=== PATIENT | female | born 1980 | race Caucasian/White ===

== ENCOUNTER 2017-08-16 11:52 | Emergency (ER) | payer BC, MEDICAID, SELFPAY ==
[2017-08-16 12:40] VITALS: BP 135/80; PULSE 109; RESP 20; TEMP 37; O2SAT 97; BMI 35.4
--- NOTE | 2017-08-16 14:22 | HMH.EDGENADL ---
ED Disposition Clinical Impression: Influenza Disposition: Home, Self-Care Condition on Discharge: Good Instructions: Influenza Referrals: Addy Avila MD [Primary Care Provider] - - Critical Care Critical Care Time: No Attestation: On 08/16/17, the high probability of a clinically significant, sudden or life threatening deterioration of the following system(s) required my full and direct attention, intervention and personal management. The time I documented below is in addition to time spent performing reported procedures but includes the following listed in this critical care notation. Medical Decision Making Vital Signs: 08/16/17 12:40 Temperature 98.6 F Temperature Source Oral Pulse Rate [Right Brachial] 109 H Respiratory Rate 20 Blood Pressure [Right Arm] 135/80 Blood Pressure Mean [Right Arm] 98 Blood Pressure Source [Right Arm] Automatic Cuff Blood Pressure Position [Right Arm] Supine 02 Sat by Pulse Oximetry 97 Oxygen Delivery Method Room Air - Lab Data Lab results reviewed: Yes: I reviewed the patient's lab results. positive group a strep, with 2 days history of being sick - Kenny Inquiry Pt receiving controlled substance: No General Adult HPI - General Chief complaint: Weakness Stated complaint: fever soa achey Mode of Arrival: Ambulatory Limitations: No Limitations Description of Symptoms (Recalled from ER Triage Doc. by RN): COUGH, CONGESTION, FEVER, CHILLS, BODY ACHES FOR 2 DAYS - History of Present Illness Onset (ago): day(s) (2) Location: head, face, chest Radiation: non-radiation Severity: moderate Severity scale (1-10): 5 - Related Data Home Medications Medication Instructions Recorded Confirmed Cetirizine HCl [Zyrtec] 10 mg PO DAILY 08/16/17 08/16/17 Meloxicam 15 mg PO DAILY 08/16/17 08/16/17 Norgestimate-Ethinyl Estradiol 1 each PO DAILY 08/16/17 08/16/17 [Ortho Tri-Cyclen 28 Tablet] clonazePAM [Clonazepam] 0.5 mg PO HS 08/16/17 08/16/17 Allergies Allergy/AdvReac Type Severity Reaction Status Date / Time No Known Allergies Allergy Unverified 08/03/17 14:44 [facility] History Medical History: Denies:: Cancer, Diabetes Mellitus Type 1, Diabetes Mellitus Type 2, MRSA Other Surgeries: No: Pacemaker Amputation: No Fractures: No - *Social History Educational Level: Completed High School Smoking Status: Current every day smoker Tobacco Type: smokeless tobacco Alcohol Intake: never - Psychiatric History Expresses thoughts of harming self/others: None Suicide Plan Description: No Plan ROS Obtained: Yes All systems reviewed & no additional complaints except - Constitutional Reports anorexia, Reports body ache(s), Reports chills - Respiratory Reports cough Physical Exam - General General appearance: alert - Head Head exam: atraumatic, normocephalic, normal inspection - Eye Eye exam: Present: normal appearance, PERRL, EOMI - ENT ENT exam: Present: normal exam, normal oropharynx, mucous membranes moist, TM's normal bilaterally, normal external ear exam, other (congested with boggy mucosa) - Neck Neck exam: Present: normal inspection, full ROM, trachea midline - Chest Chest inspection: Present: normal inspection, symmetric chest wall rise. Absent: tenderness - Respiratory Respiratory exam: Present: normal lung sounds bilaterally. Absent: respiratory distress - Cardiovascular Cardiovascular exam: Present: regular rate, normal rhythm. Absent: JVD - Abdominal Exam Abdominal exam: Present: soft, normal bowel sounds. Absent: distention, tenderness, guarding - Extremities Exam Extremities exam: Present: normal inspection, full ROM, normal capillary refill. Absent: calf tenderness - Back Exam Back exam: Present: normal inspection. Absent: tenderness - Neurological Exam Neurological exam: Present: alert, oriented X3 - Psychiatric Psychiatric exam: Present: normal affect, normal mood - Skin Skin exam: Present: war
--- NOTE | 2017-08-16 14:25 | ED_ITS ---
ED Disposition Clinical Impression: Influenza Disposition: Home, Self-Care Condition on Discharge: Good Instructions: Influenza Referrals: Addy Avila MD [Primary Care Provider] - - Critical Care Critical Care Time: No Attestation: On 08/16/17, the high probability of a clinically significant, sudden or life threatening deterioration of the following system(s) required my full and direct attention, intervention and personal management. The time I documented below is in addition to time spent performing reported procedures but includes the following listed in this critical care notation. Medical Decision Making Vital Signs: 08/16/17 12:40 Temperature 98.6 F Temperature Source Oral Pulse Rate [Right Brachial] 109 H Respiratory Rate 20 Blood Pressure [Right Arm] 135/80 Blood Pressure Mean [Right Arm] 98 Blood Pressure Source [Right Arm] Automatic Cuff Blood Pressure Position [Right Arm] Supine 02 Sat by Pulse Oximetry 97 Oxygen Delivery Method Room Air - Lab Data Lab results reviewed: Yes: I reviewed the patient's lab results. positive group a strep, with 2 days history of being sick - Kenny Inquiry Pt receiving controlled substance: No General Adult HPI - General Chief complaint: Weakness Stated complaint: fever soa achey Mode of Arrival: Ambulatory Limitations: No Limitations Description of Symptoms (Recalled from ER Triage Doc. by RN): COUGH, CONGESTION , FEVER, CHILLS, BODY ACHES FOR 2 DAYS - History of Present Illness Onset (ago): day(s) (2) Location: head, face, chest Radiation: non-radiation Severity: moderate Severity scale (1-10): 5 - Related Data Home Medications Medication Instructions Recorded Confirmed Cetirizine HCl [Zyrtec] 10 mg PO DAILY 08/16/17 08/16/17 Meloxicam 15 mg PO DAILY 08/16/17 08/16/17 Norgestimate-Ethinyl Estradiol 1 each PO DAILY 08/16/17 08/16/17 [Ortho Tri-Cyclen 28 Tablet] clonazePAM [Clonazepam] 0.5 mg PO HS 08/16/17 08/16/17 Allergies Allergy/AdvReac Type Severity Reaction Status Date / Time No Known Allergies Allergy Unverified 08/03/17 14:44 [facility] History Medical History: Denies:: Cancer, Diabetes Mellitus Type 1, Diabetes Mellitus Type 2, MRSA Other Surgeries: No: Pacemaker Amputation: No Fractures: No - *Social History Educational Level: Completed High School Smoking Status: Current every day smoker Tobacco Type: smokeless tobacco Alcohol Intake: never - Psychiatric History Expresses thoughts of harming self/others: None Suicide Plan Description: No Plan ROS Obtained: Yes All systems reviewed & no additional complaints except - Constitutional Reports anorexia, Reports body ache(s), Reports chills - Respiratory Reports cough Physical Exam - General General appearance: alert - Head Head exam: atraumatic, normocephalic, normal inspection - Eye Eye exam: Present: normal appearance, PERRL, EOMI - ENT ENT exam: Present: normal exam, normal oropharynx, mucous membranes moist, TM's normal bilaterally, normal external ear exam, other (congested with boggy mucosa ) - Neck Neck exam: Present: normal inspection, full ROM, trachea midline - Chest Chest inspection: Present: normal inspection, symmetric chest wall rise. Absent : tenderness
[2017-08-16 14:30] VITALS: BP 128/74; PULSE 98; RESP 20
== END 2017-08-16 14:40 | disposition home or self-care (01) ==
PROVIDERS: Emergency Provider Family Medicine; Family Provider Family Medicine; PCP Family Medicine
DX: J10.1 Influenza due to other identified influenza virus with other respiratory manifestations (principal); F17.290 Nicotine dependence, other tobacco product, uncomplicated
CPT/HCPCS: 87275; 87276; 99282

== ENCOUNTER → 2017-11-23 08:44 | Outpatient (POV) | payer BC, MEDICAID, SELFPAY ==
[2017-11-23 09:16] VITALS: BP 159/93; PULSE 82; RESP 18; TEMP 36.6; O2SAT 94; BMI 36.9
--- NOTE | 2017-11-23 10:52 | HMH.PAINSOAP ---
[facility] Pain Management SOAP Note Subjective:: Patient is a pleasant 37-year-old white female who presents today for follow-up after a injection she had back in June. Patient states she did quite well after the injection however her pain has returned and flared up. 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 She states that most of her pain is in her low back and her left leg. Patient has trouble sitting and states that this increases her pain. She rates her pain a 6 out of 10 today. Patient is on anti-inflammatories. Patient is unable to take muscle relaxers due to side effects. Patient has never tried gabapentin before. Patient and I discussed continuing with injective therapy versus going for surgical consult. At this time the patient is interested in trying to get as much relief with injective therapy prior to seeing a surgeon. ROS General: no recent weight change, no fever, no sleep disturbances Respiratory: no cough, no shortness of air, no recurring pulmonary infections Cardiovascular/Peripheral Vascular: No chest pain, No palpitations, no edema, no shortness of breath. Gastrointestinal: no incontinence, normal bowel movements reported Genitourinary: no incontinence Musculoskeletal: Back pain, left hip and leg pain Psychiatric: normal mood/ affect, Neurological: [denies weakness in extremities], [denies balance issues] Objective:: Physical Exam General: Alert and oriented x3, no acute distress, pleasant and cooperative, [on room air] Lungs: Resps E/U, Symmetrical chest expansion, Eyes: PERRL Musculoskeletal: Flexion and extension of lumbar spine somewhat guarded secondary to pain, deep tendon reflexes normal, strength in upper and lower extremities [5/5], normal gait noted, positive straight leg test on the left side at 30?. Neurological: speech clear, band shover equal, no gross sensory deficits Assessment:: Degenerative disc disease of the lumbar spine with lumbar radiculopathy, disc bulge at L4-L5 Plan:: We will schedule another L4-L5 lumbar epidural steroid injection. Patient is tried and failed anti-inflammatories, medications, physical therapy, chiropractic therapy. We will also start the patient on gabapentin 100 mg 1 p.o. 3 times daily. Patient is going to be taking this at night and slowly titrating as tolerated. I will follow this patient after her lumbar epidural steroid injection. This note was dictated using voice recognition software and may contain errors or omissions
== END ==
PROVIDERS: Family Provider Family Medicine; PCP Family Medicine; Visit Provider Clinical Nurse Specialist Family Health
DX: M54.6 Pain in thoracic spine (principal)
CPT/HCPCS: 99212

== ENCOUNTER → 2017-12-17 12:31 | Outpatient (CLI) | payer BC, MEDICAID, SELFPAY ==
--- NOTE | 2017-12-17 12:42 | XR_ITS ---
XR foot LT min 3V HISTORY: ITS.REASON: LT FOOT PAIN , INJURY ORDERING PHYSICIAN: Sugar Garcia PATIENT AGE: 37 years COMPARISON: 06/14/2017 FINDINGS: No fracture or dislocation. No lytic or blastic change. There is normal mineralization.. The joint spaces are well-preserved. No significant degenerative/arthritic changes. No erosive changes evident. IMPRESSION: Negative, no acute finding
== END ==
PROVIDERS: PCP Family Medicine; Visit Provider Nurse Practitioner Family
DX: S99.922A Unspecified injury of left foot, initial encounter (principal)
CPT/HCPCS: 73630

== ENCOUNTER → 2018-01-27 09:29 | Outpatient (CLI) | payer BC, MEDICAID, SELFPAY ==
--- NOTE | 2018-01-27 09:30 | XR_ITS ---
XR foot wt bearing LT 3V HISTORY: ITS.REASON: pain ORDERING PHYSICIAN: Birgit Womack DPM PATIENT AGE: 37 years COMPARISON: 12/17/2017 FINDINGS: No fracture or dislocation. No lytic or blastic change. There is normal mineralization.. The joint spaces are well-preserved. No significant degenerative/arthritic changes. No erosive changes evident. Normal alignment IMPRESSION: Negative, no acute finding
== END ==
PROVIDERS: Visit Provider Podiatrist
DX: M79.672 Pain in left foot (principal)
CPT/HCPCS: 73630

== ENCOUNTER → 2018-01-31 13:45 | Outpatient (POV) | payer BC, MEDICAID, SELFPAY ==
[2018-01-31 14:28] VITALS: BP 134/84; PULSE 83; RESP 18; O2SAT 98; BMI 38.4
--- NOTE | 2018-02-01 08:50 | HMH.PAINSOAP ---
[facility] Pain Management SOAP Note Subjective:: This patient is a pleasant 37-year-old white female who presents today for follow-up after her second lumbar epidural steroid injection. Patient states that her every day pain is still around a 6 out of 10 however she has had no flareups which are typically incapacitating for her. She states most of her pain is in her low back and her left leg. Patient is on anti-inflammatories. Patient is unable to take muscle relaxers due to side effects. Patient tried gabapentin however she stated she did not feel like it was beneficial. Patient would like to try one more injection to finish off her series of 3 epidural injections. I believe that this would be beneficial. ROS General: no recent weight change, no fever, no sleep disturbances Respiratory: no cough, no shortness of air, no recurring pulmonary infections Cardiovascular/Peripheral Vascular: No chest pain, No palpitations, no edema, no shortness of breath. Gastrointestinal: no incontinence, normal bowel movements reported Genitourinary: no incontinence Musculoskeletal: Back pain, left leg pain Psychiatric: normal mood/ affect Neurological: [denies weakness in extremities], [denies balance issues] Objective:: Physical Exam General: Alert and oriented x3, no acute distress, pleasant and cooperative, [on room air] Lungs: Resps E/U, Symmetrical chest expansion, Eyes: PERRL Musculoskeletal: Flexion and extension of lumbar spine somewhat guarded secondary to pain, deep tendon reflexes normal, strength in upper and lower extremities [5/5], slightly antalgic gait noted, positive straight leg raise test at 30? on the left side Neurological: speech clear, guest service representative equal, no gross sensory deficits Assessment:: Degenerative disease lumbar spine with lumbar radiculopathy, disc bulge at L4-L5 Plan:: We will plan her third L4-L5 lumbar epidural steroid injection. Patient's tried and failed anti-inflammatory medications, physical therapy, chiropractic therapy. Patient and I discussed potentially going to a neurosurgeon. Patient would like to finish off her epidural series prior to making any decisions on this. Patient is not on any anticoagulation therapy. This note was dictated using voice recognition software and may contain errors or omissions
--- NOTE | 2018-02-01 08:54 | P.CONS_ITS ---
[facility] Pain Management SOAP Note Subjective:: This patient is a pleasant 37-year-old white female who presents today for follow-up after her second lumbar epidural steroid injection. Patient states that her every day pain is still around a 6 out of 10 however she has had no flareups which are typically incapacitating for her. She states most of her pain is in her low back and her left leg. Patient is on anti-inflammatories. Patient is unable to take muscle relaxers due to side effects. Patient tried gabapentin however she stated she did not feel like it was beneficial. Patient would like to try one more injection to finish off her series of 3 epidural injections. I believe that this would be beneficial. ROS General: no recent weight change, no fever, no sleep disturbances Respiratory: no cough, no shortness of air, no recurring pulmonary infections Cardiovascular/Peripheral Vascular: No chest pain, No palpitations, no edema, no shortness of breath. Gastrointestinal: no incontinence, normal bowel movements reported Genitourinary: no incontinence Musculoskeletal: Back pain, left leg pain Psychiatric: normal mood/ affect Neurological: [denies weakness in extremities], [denies balance issues] Objective:: Physical Exam General: Alert and oriented x3, no acute distress, pleasant and cooperative, [ on room air] Lungs: Resps E/U, Symmetrical chest expansion, Eyes: PERRL Musculoskeletal: Flexion and extension of lumbar spine somewhat guarded secondary to pain, deep tendon reflexes normal, strength in upper and lower extremities [5/5], slightly antalgic gait noted, positive straight leg raise test at 30? on the left side Neurological: speech clear, security operations analyst equal, no gross sensory deficits Assessment:: Degenerative disease lumbar spine with lumbar radiculopathy, disc bulge at L4-L5 Plan:: We will plan her third L4-L5 lumbar epidural steroid injection. Patient's tried and failed anti-inflammatory medications, physical therapy, chiropractic therapy. Patient and I discussed potentially going to a neurosurgeon. Patient would like to finish off her epidural series prior to making any decisions on this. Patient is not on any anticoagulation therapy. This note was dictated using voice recognition software and may contain errors or omissions
== END ==
PROVIDERS: Family Provider Family Medicine; Visit Provider Clinical Nurse Specialist Family Health
DX: M54.16 Radiculopathy, lumbar region (principal)
CPT/HCPCS: 99212

== ENCOUNTER → 2018-07-26 10:55 | Outpatient (POV) | payer BC, MEDICAID, SELFPAY ==
[2018-07-26 11:19] VITALS: BP 143/92; PULSE 81; RESP 18; O2SAT 99; BMI 36.9
--- NOTE | 2018-07-26 11:47 | HMH.PAINSOAP ---
[facility] Pain Management SOAP Note Subjective:: Patient is a pleasant 37-year-old white female who we are treating for low back pain. Patient had an epidural injection back in February and has had relief of her symptoms however in the last week her pain has begun to return. Patient would like a repeat epidural. Rates her pain a 7 out of 10 today. ROS General: no recent weight change, no fever, no sleep disturbances Respiratory: no cough, no shortness of air, no recurring pulmonary infections Cardiovascular/Peripheral Vascular: No chest pain, No palpitations, no edema, no shortness of breath. Gastrointestinal: no incontinence, normal bowel movements reported Genitourinary: no incontinence Musculoskeletal: Back pain, leg pain Psychiatric: normal mood/ affect Neurological: [denies weakness in extremities], [denies balance issues] Objective:: Physical Exam General: Alert and oriented x3, no acute distress, pleasant and cooperative, [on room air] Lungs: Resps E/U, Symmetrical chest expansion, Eyes: PERRL Musculoskeletal: Flexion and extension of lumbar spine somewhat guarded secondary to pain, deep tendon reflexes normal, strength in upper and lower extremities [5/5], antalgic gait noted, positive straight leg raise test bilaterally at 30 degrees Neurological: speech clear, pot runner equal, no gross sensory deficits Assessment:: Degenerative disc disease of lumbar spine with lumbar radiculopathy symptoms and bulging disc at L4 Plan:: We will schedule her an L4-L5 lumbar epidural steroid injection given the efficacy of the last one. Patient is not on any anticoagulation therapy. Patient is continuing her anti-inflammatories and a home stretching program. This note was dictated using voice recognition software and may contain errors or omissions
--- NOTE | 2018-07-26 11:51 | P.CONS_ITS ---
[facility] Pain Management SOAP Note Subjective:: Patient is a pleasant 37-year-old white female who we are treating for low back pain. Patient had an epidural injection back in February and has had relief of her symptoms however in the last week her pain has begun to return. Patient would like a repeat epidural. Rates her pain a 7 out of 10 today. ROS General: no recent weight change, no fever, no sleep disturbances Respiratory: no cough, no shortness of air, no recurring pulmonary infections Cardiovascular/Peripheral Vascular: No chest pain, No palpitations, no edema, no shortness of breath. Gastrointestinal: no incontinence, normal bowel movements reported Genitourinary: no incontinence Musculoskeletal: Back pain, leg pain Psychiatric: normal mood/ affect Neurological: [denies weakness in extremities], [denies balance issues] Objective:: Physical Exam General: Alert and oriented x3, no acute distress, pleasant and cooperative, [on room air] Lungs: Resps E/U, Symmetrical chest expansion, Eyes: PERRL Musculoskeletal: Flexion and extension of lumbar spine somewhat guarded secondary to pain, deep tendon reflexes normal, strength in upper and lower extremities [5/5], antalgic gait noted, positive straight leg raise test bilaterally at 30 degrees Neurological: speech clear, bus system operator equal, no gross sensory deficits Assessment:: Degenerative disc disease of lumbar spine with lumbar radiculopathy symptoms and bulging disc at L4 Plan:: We will schedule her an L4-L5 lumbar epidural steroid injection given the efficacy of the last one. Patient is not on any anticoagulation therapy. Patient is continuing her anti-inflammatories and a home stretching program. This note was dictated using voice recognition software and may contain errors or omissions
== END ==
PROVIDERS: PCP Family Medicine; Visit Provider Clinical Nurse Specialist Family Health
DX: M51.16 Intervertebral disc disorders with radiculopathy, lumbar region (principal)
CPT/HCPCS: 99213

== ENCOUNTER → 2018-11-04 09:55 | Outpatient (CLI) | payer BC, MEDICAID, SELFPAY ==
[2018-11-07 08:24] LABS: HIV Screen 4th Generation wRfx Non Reactive (Non Reactive); Hepatitis C Antibody <0.1 s/co ratio (0.0-0.9); Rapid Plasma Reagin Ab Titer Non Reactive (NonRea<1:1)
== END ==
PROVIDERS: Visit Provider Obstetrics & Gynecology
DX: Z11.3 Encounter for screening for infections with a predominantly sexual mode of transmission (principal)
CPT/HCPCS: 36415; 86592; 86703; 87380; G0432

== ENCOUNTER → 2020-05-07 11:08 | Outpatient (CLI) | payer BC, OTHER, SELFPAY ==
--- NOTE | 2020-05-07 11:09 | CA_ITS ---
APPROVED REPORT Pit Clerk: Dunia Gomes RVT Laterality: Bilateral Study Quality: Excellent Indications: NUMBNESS OF WHOLE BODY,HERNANDEZ Risk Factors Hypertension: Smoking Doppler Spectral Velocity Analysis ECA (R) 84.90/17.00 cm/s ECA (L) 116.40/20.20 cm/s dICA (R) 80.70/37.60 cm/s dICA (L) 73.60/32.30 cm/s Martha (R) 98.10/38.30 cm/s Martha (L) 66.00/31.70 cm/s pICA (R) 82.80/28.50 cm/s pICA (L) 114.80/39.30 cm/s dCCA (R) 71.70/21.60 cm/s dCCA (L) 93.40/23.50 cm/s pCCA (R) 123.40/28.30 cm/s pCCA (L) 98.80/28.20 cm/s Vert (R) 47.70/14.40 cm/s Vert (L) 42.40/14.80 cm/s ICA/CCA 1.37 ICA/CCA 1.23 Findings Study suggests no evidence of stenosis of the bilateral cartoid arteries. Antegrade flow seen bilateral vertebral arteries. Conclusion Study suggests no evidence of stenosis of the bilateral cartoid arteries. Antegrade flow seen bilateral vertebral arteries. Electronically signed by : Nish Campos MD 05/07/2020 19:51:18
== END ==
PROVIDERS: PCP Family Medicine; Visit Provider Specialist
DX: R51 Headache (principal); I10 Essential (primary) hypertension; R20.0 Anesthesia of skin; Z68.34 Body mass index [BMI] 34.0-34.9, adult
CPT/HCPCS: 93880

== ENCOUNTER → 2020-05-08 12:56 | Outpatient (CLI) | payer BC, OTHER, SELFPAY ==
--- NOTE | 2020-05-08 13:01 | MR_ITS ---
PROCEDURE: MR HEAD/BRAIN WO CON CLINICAL INDICATION: eval for abnormality Pt. c/o rt arm and left leg numbness that is internittent for a few months. Pt states she has panic attacks. COMPARISON: No exams were available for comparison TECHNIQUE: Routine multiplanar multi echo sequences are performed without gadolinium enhancement. FINDINGS: No midline shift, mass effect, intracranial hemorrhage, or hydrocephalus. No evidence of acute infarction The cerebellopontine angles, cerebellum, and brainstem are unremarkable. There is normal dean-white matter differentiation with no abnormal white matter signal intensity evident. The pituitary, optic chiasm, corpus callosum, and craniocervical junction have an unremarkable appearance. No mastoid effusion or sinus air-fluid level. IMPRESSION: Negative MRI of the brain without contrast Dictated by: Nish Campos MD 05/10/2020 12:54 Nish Campos MD in [place] 05/10/2020 12:54
== END ==
PROVIDERS: PCP Family Medicine; Visit Provider Specialist
DX: R51 Headache (principal); R20.0 Anesthesia of skin; G57.12 Meralgia paresthetica, left lower limb; M79.641 Pain in right hand; M79.642 Pain in left hand
CPT/HCPCS: 70551

== ENCOUNTER → 2020-05-29 08:13 | Outpatient (CLI) | payer BC, OTHER, SELFPAY ==
[2020-05-29 08:34] LABS: Basophils # 0.1 K/mm3 (0-0.2); Basophils % 0.8 % (0.1-2.0); Eosinophils # 0.4 K/mm3 (0.0-0.4); Eosinophils % 4.6 % (0.1-12.0); Hematocrit 39.5 % (37.0-47.0); Hemoglobin 12.1 g/dL (12.2-16.2); Lymphocytes # 2.6 K/mm3 (0.7-4.5); Lymphocytes % 34.1 % (10-50); Mean Corpuscular HGB Conc 30.5 g/dL (31.8-35.4); Mean Corpuscular Hemoglobin 27.4 pg (27.0-31.2); Mean Corpuscular Volume 89.8 fl (81-99); Mean Platelet Volume 7.1 fl (7.4-10.4); Monocytes # 0.4 K/mm3 (0.1-1.0); Monocytes % 5.5 % (1.7-9.3); Neutrophils # 4.3 K/mm3 (1.8-7.8); Platelet Count 407 K/mm3 (142-424); Red Cell Distribution Width 14.1 % (11.5-17.5); White Blood Count 7.7 K/mm3 (4.8-10.8)
[2020-05-29 11:22] LABS: Alanine Aminotransferase 28 U/L (12-78); Albumin Level 4.4 g/dl (3.5-5.0); Albumin/Globulin Ratio 1.5 (1.1-1.8); Alkaline Phosphatase 78 U/L (38-126); Aspartate Amino Transferase 36 U/L (14-36); Bilirubin,Total 0.5 mg/dl (0.2-1.3); Blood Urea Nitrogen 15 mg/dl (7-17); Calcium 9.5 mg/dl (8.4-10.2); Carbon Dioxide 25 mmol/L (22.0-30.0); Chloride 108 mmol/L (98-107); Chol/HDL Ratio 5.1 (1-3.5); Cholesterol 183 mg/dl (140-200); Estimated Glomerular Filt Rate 62 ml/min (>60); GFR (African American) 75 ML/MIN (>60); Globulin 2.9 g/dL (1.3-3.2); Glucose 111 mg/dl (74-100); HDL Cholesterol 36 mg/dl (40-60); Sodium 143 mmol/L (136-145); Total Protein,Serum 7.3 g/dl (6.3-8.2); Triglycerides 196 mg/dl (30-150); VLDL Cholesterol 39 mg/dL (0-40)
[2020-05-29 11:34] LABS: Direct LDL Cholesterol 115.45 mg/dL (100-129)
[2020-05-29 11:54] LABS: Thyroid Stimulating Hormone 2.33 uIU/mL (0.465-4.68)
[2020-05-29 12:29] LABS: Vitamin B12 434 pg/mL (239-931)
[2020-05-29 12:33] LABS: Folate 9.78 ng/mL
== END ==
PROVIDERS: Nurse Practitioner Family; Visit Provider Specialist
DX: G57.12 Meralgia paresthetica, left lower limb (principal); R20.0 Anesthesia of skin; M79.641 Pain in right hand; M79.642 Pain in left hand; I10 Essential (primary) hypertension; F41.9 Anxiety disorder, unspecified; Z68.34 Body mass index [BMI] 34.0-34.9, adult; R51.9 Headache, unspecified
CPT/HCPCS: 36415; 80053; 80061; 82607; 82746; 84443; 85025

== ENCOUNTER → 2020-06-20 12:56 | Outpatient (POV) | payer BC, OTHER, SELFPAY ==
[2020-06-20 13:54] VITALS: BP 133/79; PULSE 74; RESP 18; O2SAT 98; BMI 34.8
--- NOTE | 2020-06-20 16:54 | HMH.PMCON ---
Assessment and Plan (1) Low back pain Status: Chronic Category: Medical Code(s): M54.5 - Low back pain (2) Lumbar radiculopathy Status: Chronic Category: Medical Code(s): M54.16 - Radiculopathy, lumbar region (3) Neck pain Status: Chronic Category: Medical Code(s): M54.2 - Cervicalgia (4) Cervical radiculopathy Status: Chronic Category: Medical Code(s): M54.12 - Radiculopathy, cervical region - Assessment and plan all Dx Assessment and Plan for all problems:: Patient does not have any recent imaging. She is having quite a bit of numbness and tingling into her right arm as well as her left lateral thigh area. Patient feels that she is having numbness and tingling as well as like a hot sensation into her left lateral thigh. She is also having numbness and tingling into her right arm that radiates into her right hand. Patient does not have any recent imaging. She is concerned about taking any type of oral medications due to her daughter's recreational drug use. She is not interested in any opiates. She has tried gabapentin in the past with no relief. She has also had injective therapy in the past in our clinic with no long-term relief. Patient has had physical therapy which made her pain worse. She does try a continued home stretching program however, she is not getting any relief. She is currently on meloxicam. We will schedule the patient for a cervical and lumbar MRI. She does not have any recent imaging. We will also order her prednisone 20 mg 1 tablet p.o. twice daily for 5 days to see if this gives her any relief. We will plan to see her back at the next visit to discuss further plan of care and review of her MRI. Patient has been instructed to contact clinic if she has any concerns before his next appointment. The patient and I specifically discussed risk factors for COVID19. These risks include, but are not limited to age greater than 60, heart or lung disease, diabetes, immunosuppression, and travel. We also discussed NSAIDs may worsen COVID19 infection or symptoms. Patient should not use NSAIDs to treat COVID19 signs or symptoms. Patient was also informed that any type of corticosteroid of any form (oral or injection) will decrease the patient's immune system response and may increase the likelihood of COVID19 infection and symptoms. Dr. Argueta has reviewed this note and agrees with this plan of care. This note was dictated using voice recognition software and make contain errors or omissions. HPI - Data of Consult Patient: new to practice Consult date: 06/20/20 Requesting Physician: Farheen Ayers APRN Primary Care Provider: Addy Avila MD - Consult Narrative Reason for consult: Neck pain with radiation into right arm, low back pain History of present illness: Ms. Ford is a 39 year old female who presents today for consultation for neck and low back pain. Patient says this pain has been ongoing for a long time. She says her pain is worse in the low back area at this time with radiation into her left lateral thigh area. She says that it feels as though she has scalding hot water to her left thigh. Patient says that she works 2 jobs at this time and has to do all great deal of standing. She says when she stands for longer than 10 minutes her pain is intense and severe. She says that she has had injections in the past and has not gotten any long-term relief. She says her pain is progressively getting worse. She has been seen by Dr. Romero for chronic headaches and as well as arm pain. Patient says she is having right arm pain with numbness and tingling to the point that she is unable to feel her right hand and arm intermittently. Patient says that when she does develop severe numbness and tingling into her right arm, she is unable to drive due to the numbness of that area. She says that she thought she was having a heart attack and did express her concerns to Dr. Romero. As result, s
== END ==
PROVIDERS: PCP Family Medicine; Visit Provider Clinical Nurse Specialist Family Health
DX: M54.5 Low back pain (principal); M54.2 Cervicalgia; M54.16 Radiculopathy, lumbar region; M54.12 Radiculopathy, cervical region
CPT/HCPCS: 99212

== ENCOUNTER → 2020-06-25 16:09 | Outpatient (CLI) | payer BC, OTHER, SELFPAY ==
[2020-06-27 15:03] LABS: Covid-19 Nasal PCR Sendout Lex POSITIVE
== END ==
PROVIDERS: PCP Nurse Practitioner Family; Visit Provider Nurse Practitioner Family
DX: Z20.828 Contact with and (suspected) exposure to other viral communicable diseases (principal); U07.1 COVID-19
CPT/HCPCS: U0004

== ENCOUNTER 2020-06-30 14:54 | Emergency (ER) | payer BC, OTHER, SELFPAY ==
[2020-06-30 14:55] VITALS: BP 136/86; PULSE 65; TEMP 36.9; O2SAT 98
[2020-06-30 15:13] VITALS: PULSE 65; TEMP 36.9; O2SAT 98; BMI 35.1
[2020-06-30 15:42] VITALS: BP 136/86; PULSE 65; RESP 18; TEMP 36.9; O2SAT 98; BMI 35.2
--- NOTE | 2020-06-30 15:42 | HMH.EDUTC ---
[facility] [place] Impression: Encounter for laboratory testing for COVID-19 virus Disposition: Home, Self-Care Condition on Discharge: Good Instructions: Preventing the Spread of Coronavirus Discharge Instructions Additional Instructions: *Monitor Temp, Over the counter Motrin or Tylenol as directed/as needed Tylenol every 4 hours and Motrin every 6 hours (as long as your family doctor has told you that you can take it) for fever or pain. and straight to ER if unable to lower temp less than 101.0 after medication given *Warm salt water gargles may help to soothe the throat *Throat Lozenges *Warm fluids like tea with honey may help to soothe the throat *Sleep elevated *Humidifier/Vaporizer Follow up IMMEDIATELY for new or worsening symptoms or no Noticeable improvement over the next 48-72 hours. 911 for difficulty breathing or swallowing You was tested for today for COVID19 your test result should be back in the next 24-48 hours, you may call to the [facility] tomorrow to see if your test results are back and the result [phone] You was given a handout with instructions for Self Quarantine and Self isolation for while you wait on test results and what to do if they are positive If you are positive the Health Dept will be contacting you also Referrals: Addy Avila MD [Primary Care Provider] - As needed Forms: Work/School Release Time of Disposition: 16:05 Medical Decision Making - Kenny Inquiry Pt receiving controlled substance: No Kenny was queried for this patient: No Vital Signs: 06/30/20 14:55 06/30/20 15:13 06/30/20 15:42 Temperature 98.4 F 98.4 F 98.4 F Temperature Source Oral Oral Oral Pulse Rate [Left Radial] 65 65 65 Respiratory Rate 18 Blood Pressure [Right Arm] 136/86 136/86 Blood Pressure Mean [Right Arm] 102 102 Blood Pressure Source [Right Arm] Automatic Cuff Automatic Cuff Blood Pressure Position [Right Arm] Sitting Sitting 02 Sat by Pulse Oximetry 98 98 98 Oxygen Delivery Method Room Air Room Air Room Air Orders (Tests/Meds): ORDERS Category Date Time Status Covid-19 Nasal PCR ([facility]) Routine Lab 06/30/20 15:50 [place] [facility] [place] - General Stated complaint: Wants to be re tested Time Seen by Provider: 06/30/20 15:42 Mode of Arrival: Ambulatory Source of Information: Patient Limitations: No Limitations Description of Symptoms (Recalled from Triage Doc. by RN): Pt states that she is covid positive with no symptoms and wants a recheck of covid due to pt family all testing negative - History of Present Illness Provider Complaint: Patient states that she tested positive for COVID on State that she has not had any symptoms and does not believe that she is positive because other members in the home got tested and they was negative but has since started having symptoms and she is still not having any so she wanted to get rechecked - Related Data Home Medications Medication Instructions Recorded Confirmed Cetirizine HCl [Zyrtec] 10 mg PO DAILY 08/16/17 05/30/20 Meloxicam 15 mg PO DAILY 08/16/17 05/30/20 bisoprolol 2.5 PO #90 tab 01/10/19 05/30/20 mg-hydrochlorothiazide 6.25 mg tablet acetaminophen-caffeine 500 mg-65 1 tab PO Q12H PRN 04/15/20 05/30/20 mg tablet diphenhydramine HCl 25 mg capsule 25 mg PO TID PRN 04/15/20 06/30/20 ibuprofen 200 mg capsule 200 mg PO ONCE PRN cap 04/15/20 06/30/20 Norgestimate-Ethinyl Estradiol 1 tab PO DAILY 06/30/20 06/30/20 [Tri-Previfem Tablet] Vilazodone HCl [Viibryd] 40 mg PO DAILY 06/30/20 06/30/20 predniSONE [Prednisone 20mg 20 mg PO BID 06/30/20 06/30/20 Tab] Previous Rx's Medication Instructions Recorded clonazepam 0.5 mg tablet 0.5 mg PO BID PRN #30 tab 06/03/20 Allergies Allergy/AdvReac Type Severity Reaction Status Date / Time No Known Allergies Allergy Verified 06/30/20 15:55 [facility] History - Hepatitis A Screen Attestation statement:: This patient has been screened
[2020-06-30 16:32] VITALS: BP 136/86; PULSE 65; RESP 18; TEMP 36.9; O2SAT 98
== END 2020-06-30 16:55 | disposition home or self-care (01) ==
PROVIDERS: Emergency Provider Nurse Practitioner; PCP Family Medicine
DX: Z20.828 Contact with and (suspected) exposure to other viral communicable diseases (principal); J45.909 Unspecified asthma, uncomplicated; F41.8 Other specified anxiety disorders; I10 Essential (primary) hypertension; Z95.0 Presence of cardiac pacemaker; E03.9 Hypothyroidism, unspecified; Z79.899 Other long term (current) drug therapy
CPT/HCPCS: 99202; U0003

== ENCOUNTER → 2020-07-23 13:02 | Outpatient (CLI) | payer BC, OTHER, SELFPAY ==
--- NOTE | 2020-07-23 13:10 | MR_ITS ---
PROCEDURE: MR CERVICAL SPINE WO CON CLINICAL INDICATION: NECK PAIN/BACK PAIN Neck pain with bilateral arm numbness COMPARISON: No exams were available for comparison TECHNIQUE: Standard multiplanar multiecho sequences are performed without contrast. 3-D MIP and myelographic images are also rendered and reviewed FINDINGS: There is normal alignment. The craniocervical junction has an unremarkable appearance. The disc spaces are well preserved C2-C3: Unremarkable. C3-C4: Minimal left asymmetric disc bulge versus minimal left paracentral disc protrusion without impingement C4-C5: Unremarkable. C5-C6: Unremarkable. C6-C7: Unremarkable. C7-T1: Unremarkable. No canal stenosis or extruded herniated disc IMPRESSION: 1. Minimal asymmetric bulging disc versus small left paracentral disc protrusion at C4-C5 otherwise negative MRI of the cervical spine 2. No extruded herniated disc or canal stenosis. Dictated by: Nish Campos MD 07/24/2020 18:21 Nish Campos MD in [place] 07/24/2020 18:21
--- NOTE | 2020-07-23 13:10 | MR_ITS ---
PROCEDURE: MR LUMBAR SPINE WO CON CLINICAL INDICATION: NECK PAIN/BACK PAIN, low back pain, bilateral leg pain and numbness COMPARISON: MR MR HEAD/BRAIN WO CON from 05/08/2020 TECHNIQUE: Standard multiplanar multiecho sequences are performed without contrast. 3-D MIP and myelographic images are also rendered and reviewed FINDINGS: There is normal alignment. The spinal cord ends at the T12-L1 level. L1-L2: Unremarkable. L2-L3: Minimal bulging disc with mild facet and ligamentum hypertrophy. L3-L4: Mild degenerative disc disease with bulging disc with a small broad-based central left paracentral and foraminal disc protrusion abutting the left L4 nerve root causing left lateral recess and foraminal narrowing. There is facet and ligamentum hypertrophy also at this level with mild right foraminal narrowing. L4-5: Degenerative disc disease with bulging disc and a small broad-based right paracentral and foraminal disc protrusion with minimal superior extrusion causing right lateral recess narrowing and moderate right foraminal narrowing with impingement upon the right L5 nerve root along with facet and ligamentum hypertrophy with moderate bilateral foraminal narrowing. Small amount fluid is present in the left facet joint at this level. There is 3 mm anterolisthesis of L4 and there is borderline canal stenosis at this level. L5-S1: Mild facet and ligamentum hypertrophy. IMPRESSION: 1. Mild multilevel lumbar spondylosis. Please see above for detailed description at each level. 2. L3-L4: Mild degenerative disc disease with bulging disc with a small broad-based central left paracentral and foraminal disc protrusion abutting the left L4 nerve root causing left lateral recess and foraminal narrowing. There is facet and ligamentum hypertrophy also at this level with mild right foraminal narrowing. 3. L4-5: Degenerative disc disease with bulging disc and a small broad-based right paracentral and foraminal disc protrusion with minimal superior extrusion causing right lateral recess narrowing and moderate right foraminal narrowing with impingement upon the right L5 nerve root along with facet and ligamentum hypertrophy with moderate bilateral foraminal narrowing. Small amount fluid is present in the left facet joint at this level. There is 3 mm anterolisthesis of L4 and there is borderline canal stenosis at this level. Dictated by: Nish Campos MD 07/24/2020 13:49 Nish Campos MD in [place] 07/24/2020 13:49
== END ==
PROVIDERS: PCP Family Medicine; Visit Provider Clinical Nurse Specialist Family Health
DX: M54.2 Cervicalgia (principal); M54.5 Low back pain
CPT/HCPCS: 72141; 72148; 76376

== ENCOUNTER → 2020-08-29 11:43 | Outpatient (POV) | payer BC, OTHER, SELFPAY ==
[2020-08-29 12:10] VITALS: BP 138/89; PULSE 72; RESP 18; TEMP 36.8; O2SAT 98; BMI 33.6
--- NOTE | 2020-08-29 16:10 | P.CONS_ITS ---
[facility] Pain Management SOAP Note Subjective:: She is pleasant 39-year-old white female who presents today for follow-up after lumbar and cervical MRI. Patient and I have discussed lumbar epidural steroid injections. Post of her pain is in her low back radiating down into her leg. Patient rates her pain a 5 out of 10. She does work and stands for long periods of time. Patient states that steroids do help somewhat. We also talked about gabapentin. She has a left thigh area that tovar with intensity constantly. Patient has tried gabapentin the past but it was not for this. Patient and I discussed restarting gabapentin. ROS General: no recent weight change, no fever, no sleep disturbances Respiratory: no cough, no shortness of air, no recurring pulmonary infections Cardiovascular/Peripheral Vascular: No chest pain, No palpitations, no edema, no shortness of breath. Gastrointestinal: no new onset incontinence, normal bowel movements reported Genitourinary: no new onset incontinence Musculoskeletal: Back pain, leg pain Psychiatric: normal mood/ affect Neurological: [denies new onset weakness in extremities], [denies new onset balance issues] Objective:: Physical Exam General: Alert and oriented x3, no acute distress, pleasant and cooperative, [on room air] Lungs: Resps E/U, Symmetrical chest expansion, Eyes: PERRL Musculoskeletal: Flexion and extension of lumbar spine somewhat guarded secondary to pain, deep tendon reflexes normal, strength in upper and lower extremities [5/5], [abnormal gait noted] Neurological: speech clear, 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 Patient was also started on gabapentin 100 mg up to 3 times a day. We also started her on prednisone 20 mg to take for flareups. She is not to take more than 5 consecutive days in a row. Patient understands this. I will follow-up with her in 3 weeks reassess her symptoms at that time she has been instructed to call the office if she has any issues prior to her next appointment. Dr. Argueta has reviewed this note and agrees with this plan of care. This note was dictated using voice recognition software and may contain errors or omissions [facility] History I have reviewed the patient's past medical history: Yes Medical History: Reports:: Anxiety, Asthma, Depression, Hypertension, Internal Pacemaker Denies:: Cancer, Diabetes Mellitus Type 1, Diabetes Mellitus Type 2, Hyperlipidemia, Migraine, MRSA, Seizures *Have you ever received a pneumonia vaccine?: Yes *Have you received a flu vaccine this season?: Yes Other Medical History: Reports: Hypothyroidism, Sinus Problems Other Surgeries: Yes: No Previous Surgery, Colonoscopy, Pacemaker, Other Amputation: No Fractures: No - *Social History Smoking Status: Current every day smoker Tobacco Type: cigarettes # Packs/Day (cigarettes): 0 #Yrs smoked (if former smoker): 24 Alcohol Intake: never Alcohol Intake Frequency:: holidays/special occasions only Substance Use Type: denies use *Occupational Status:: other Housing: house Household Members: spouse, children *Travel in the last 8 weeks: None - Psychiatric History Pschychiatric History:: Reports:: Anxiety, Depression Family Hx:: Diabetes, Heart Attack, Hypertension, Stroke, Hyperlipidemia
== END ==
PROVIDERS: PCP Family Medicine; Visit Provider Clinical Nurse Specialist Family Health
DX: M51.16 Intervertebral disc disorders with radiculopathy, lumbar region (principal)
CPT/HCPCS: 99212; G0463

== ENCOUNTER → 2020-11-11 15:27 | Outpatient (POV) | payer BC, OTHER, SELFPAY ==
[2020-11-11 15:34] VITALS: BP 136/85; PULSE 70; RESP 18; O2SAT 98; BMI 34.0
--- NOTE | 2020-11-11 15:39 | P.CONS_ITS ---
[facility] Pain Management SOAP Note Subjective:: Is a pleasant 40-year-old white female who presents today for follow-up. Patient's been taking gabapentin 100 mg at nighttime and steroids on Mondays and Saturdays. Patient is still having difficulty with standing. She is now on a steroid. She states that they do help. We discussed an anti-inflammatory regimen. She is on meloxicam. We will discontinue this and start her on diclofenac 75 mg 1 p.o. twice daily and increase her gabapentin to 300 mg at nighttime. Patient's Kenny #[id number] reviewed and appropriate. ROS General: no recent weight change, no fever, no sleep disturbances Respiratory: no cough, no shortness of air, no recurring pulmonary infections Cardiovascular/Peripheral Vascular: No chest pain, No palpitations, no edema, no shortness of breath. Gastrointestinal: no new onset incontinence, normal bowel movements reported Genitourinary: no new onset incontinence Musculoskeletal: Back pain, leg pain Psychiatric: normal mood/ affect Neurological: [denies new onset weakness in extremities], [denies new onset balance issues] Objective:: Physical Exam General: Alert and oriented x3, no acute distress, pleasant and cooperative, [on room air] Lungs: Resps E/U, Symmetrical chest expansion, Eyes: PERRL Musculoskeletal: Flexion and extension of lumbar spine somewhat guarded secondary to pain, deep tendon reflexes normal, strength in upper and lower extremities [5/5], slightly antalgic gait noted Neurological: speech clear, 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 nightly. We will start her on diclofenac 75 mg 1 p.o. twice daily. I will follow-up with her via telehealth visit on Wednesday. She has been instructed to call the office if she has any issues prior to her next appointment. Dr. Argueta has reviewed this note and agrees with this plan of care. This note was dictated using voice recognition software and may contain errors or omissions [facility] History I have reviewed the patient's past medical history: Yes Medical History: Reports:: Anxiety, Asthma, Depression, Hypertension, Internal Pacemaker Denies:: Cancer, Diabetes Mellitus Type 1, Diabetes Mellitus Type 2, Hyperlipidemia, Migraine, MRSA, Seizures *Have you ever received a pneumonia vaccine?: No *Have you received a flu vaccine this season?: No Other Medical History: Reports: Hypothyroidism, Sinus Problems Other Surgeries: Yes: No Previous Surgery, Colonoscopy, Pacemaker, Other Amputation: No Fractures: No - *Social History Smoking Status: Current every day smoker Tobacco Type: cigarettes # Packs/Day (cigarettes): 0 #Yrs smoked (if former smoker): 24 Alcohol Intake: never Alcohol Intake Frequency:: holidays/special occasions only Substance Use Type: denies use *Occupational Status:: employed Housing: house Household Members: spouse, children *Travel in the last 8 weeks: None - Psychiatric History Pschychiatric History:: Reports:: Anxiety, Depression Family Hx:: Diabetes, Heart Attack, Hypertension, Stroke, Hyperlipidemia
== END ==
PROVIDERS: PCP Family Medicine; Visit Provider Clinical Nurse Specialist Family Health
DX: M51.16 Intervertebral disc disorders with radiculopathy, lumbar region (principal)
CPT/HCPCS: 99212; G0463

== ENCOUNTER → 2020-11-18 12:30 | Outpatient (POV) | payer BC, OTHER, SELFPAY ==
--- NOTE | 2020-11-18 12:43 | HMH.VVPMSO ---
[facility] Virtual Visit SOAP Consent for virtual visit:: With the recent concerns about the COVID-19, we are trying to minimize exposure to you by shifting to telehealth appointments whenever possible. It restricts me from seeing you in person, but the trade off is protecting you during this pandemic. Can you see and hear me okay, and do you consent to this option? If not, I would be happy to see if we can reschedule your appointment in the future, when feasible. Has patient consented to this virtual visit?: Yes Subjective:: Patient is a very pleasant 40-year-old white female who presents today for follow-up via telehealth. Patient was started on gabapentin 3 mg 1 p.o. nightly diclofenac 75 mg 1 p.o. twice daily. Patient has done well with this finding that she is able to stand longer without as much discomfort in her feet. We will continue this regimen for 1 month I will follow-up with her after that and reassess her symptoms. She denies any side effects to the medications. Objective:: Physical exam: Constitutional: Healthy appearing, well-developed, alert, in no acute distress Psychiatric: Judgment and insight intact, Alert and oriented x4 Mood and affect: Mood normal, affect appropriate Head and face: Inspection: Normocephalic atraumatic, extraocular movement intact Respiratory: Breathing nonlabored, nondyspneic Cardiovascular: No cyanosis, clubbing, or edema observed Skin: Head and neck: Skin with no lesions or rash observed Gait: Able to walk without assistive device: Able to heel and toe walk Neurologic: Sensation grossly intact per patient Assessment:: Degenerative disc disease lumbar spine lumbar radiculopathy and back pain Plan:: We will follow up with the patient 1 month reassess her symptoms at that time she has been instructed to call the office if she has any issues prior to her next appointment. This encounter was performed as a telemedicine visit via secure 2 way video and audio to minimize risk and transmission of Covid-19. The patient and we understand the limitations of a telemedicine visit including inability to check reflexes, possibly missing subtle findings on physical exam. Alternative options were presented to the patient and the patient elected to proceed with the visit. We specifically discussed risk factors for Covid-19 including age, heart or lung disease, diabetes, immunosuppression and travel. We also discussed that NSAIDs may worsen Covid-19 infection symptoms and that they should not be used to treat Covid-19 symptoms. Patient was also informed that corticosteroids in any form oral or injectable will decrease immune response and may increase risk of Covid-[address] Argueta has reviewed this patient's chart and this note and agrees with plan of care. Patient has been instructed to call the office if they have any issues prior to the next appointment. Time In:: 12:30 Time Out:: 12:45 [facility] History I have reviewed the patient's past medical history: Yes Medical History: Reports:: Anxiety, Asthma, Depression, Hypertension, Internal Pacemaker Denies:: Cancer, Diabetes Mellitus Type 1, Diabetes Mellitus Type 2, Hyperlipidemia, Migraine, MRSA, Seizures *Have you ever received a pneumonia vaccine?: No *Have you received a flu vaccine this season?: No Other Medical History: Reports: Hypothyroidism, Sinus Problems Other Surgeries: Yes: No Previous Surgery, Colonoscopy, Pacemaker, Other Amputation: No Fractures: No - *Social History Smoking Status: Current every day smoker Tobacco Type: cigarettes # Packs/Day (cigarettes): 0 #Yrs smoked (if former smoker): 24 Alcohol Intake: never Alcohol Intake Frequency:: holidays/special occasions only Substance Use Type: denies use *Occupational Status:: employed Housing: house Household Members: spouse, children *Travel in the last 8 weeks: None - Psychiatric History Pschychiatric History:: Reports:: Anxiety, Depression Family Hx:: Diabetes, Heart Attack
== END ==
PROVIDERS: Visit Provider Clinical Nurse Specialist Family Health
DX: M51.16 Intervertebral disc disorders with radiculopathy, lumbar region (principal)
CPT/HCPCS: 99212; G0463

== ENCOUNTER → 2020-12-19 11:42 | Outpatient (POV) | payer BC, OTHER, SELFPAY ==
--- NOTE | 2020-12-19 12:16 | P.CONS_ITS ---
[facility] PM Virtual Visit SOAP Consent for virtual visit:: With the recent concerns about the COVID-19, we are trying to minimize exposure to you by shifting to telehealth appointments whenever possible. It restricts me from seeing you in person, but the trade off is protecting you during this pandemic. Can you see and hear me okay, and do you consent to this option? If not, I would be happy to see if we can reschedule your appointment in the future, when feasible. Has patient consented to this virtual visit?: Yes Subjective:: Patient is a 40-year-old white female who presents today for telehealth visit in regards to her medications. Patient currently on gabapentin 300 mg 1 p.o. nightly iron diclofenac 75 mg 1 p.o. twice daily. Patient states it has been helpful due to a Misunderstanding on the labeling the patient was taking 2 tablets of gabapentin. I discussed with her that we can increase her current prescription to this. Patient's Kenny #[id number] reviewed and appropriate. ROS General: no recent weight change, no fever, no sleep disturbances Respiratory: no cough, no shortness of air, no recurring pulmonary infections Cardiovascular/Peripheral Vascular: No chest pain, No palpitations, no edema, no shortness of breath. Gastrointestinal: no new onset incontinence, normal bowel movements reported Genitourinary: no new onset incontinence Musculoskeletal: Back pain, leg pain Psychiatric: normal mood/ affect Neurological: [denies new onset weakness in extremities], [denies new onset balance issues] Objective:: Physical exam: Constitutional: Healthy appearing, well-developed, alert, in no acute distress Psychiatric: Judgment and insight intact, Alert and oriented x4 Mood and affect: Mood normal, affect appropriate Respiratory: Breathing nonlabored, nondyspneic Gait: Able to walk without assistive device: Able to heel and toe walk Neurologic: Sensation grossly intact per patient Assessment:: Degenerative disc disease lumbar spine lumbar radiculopathy, back pain Plan:: We will continue her gabapentin and increase it to 300 mg twice a day we will continue her diclofenac 75 mg twice daily. I will follow-up with her in 1 month and see how she tolerates these changes. Dr. Argueta has reviewed this note and agrees with this plan of care. This note was dictated using voice recognition software and may contain errors or omissions Time In:: 11:45 Time Out:: 12:00 [facility] History I have reviewed the patient's past medical history: Yes Medical History: Reports:: Anxiety, Asthma, Depression, Hypertension, Internal Pacemaker Denies:: Cancer, Diabetes Mellitus Type 1, Diabetes Mellitus Type 2, Hyperlipidemia, Migraine, MRSA, Seizures *Have you ever received a pneumonia vaccine?: No *Have you received a flu vaccine this season?: No Other Medical History: Reports: Hypothyroidism, Sinus Problems Other Surgeries: Yes: No Previous Surgery, Colonoscopy, Pacemaker, Other Amputation: No Fractures: No - *Social History Smoking Status: Current every day smoker Tobacco Type: cigarettes # Packs/Day (cigarettes): 0 #Yrs smoked (if former smoker): 24 Alcohol Intake: never Alcohol Intake Frequency:: holidays/special occasions only Substance Use Type: denies use *Occupational Status:: employed Housing: house Household Members: spouse, children *Travel in the last 8 weeks: None - Psychiatric History Pschychiatric History:: Reports:: Anxiety, Depression Family Hx:: Diabetes, Heart Attack, Hypertension, Stroke, Hyperlipidemia
== END ==
PROVIDERS: Visit Provider Clinical Nurse Specialist Family Health
DX: M51.16 Intervertebral disc disorders with radiculopathy, lumbar region (principal)
CPT/HCPCS: 99212; G0463

== ENCOUNTER 2021-01-10 18:32 | Emergency (ER) | payer BC, OTHER, SELFPAY ==
[2021-01-10 18:39] VITALS: BP 124/78; PULSE 86; RESP 17; TEMP 36.9; O2SAT 97; BMI 34.0
--- NOTE | 2021-01-10 18:53 | HMH.EDUTC ---
[facility] [place] Clinical Impression: UTI (urinary tract infection) Qualifiers: Urinary tract infection type: site unspecified Hematuria presence: with hematuria Qualified Code(s): N39.0 - Urinary tract infection, site not specified Disposition: Home, Self-Care Condition on Discharge: Good Instructions: Trimethoprim/Sulfamethoxazole (Alternative Therapy), Urinary Tract Infection, DI for Urinary Tract Infection (UTI) Additional Instructions: *Increase fluids. Water not Soda or Tea *Start antibiotic immediately and be sure to take as ordered for the FULL length of time although you should start to see improvement over the next 48 hours Be SURE to follow up anytime for new or worsening symptoms with your family doctor. AND in 48 hours for urine culture results with your family doctor, if you do not have a doctor then you may call back to the [facility] for urine culture results and further treatment. We do recommend that you choose and establish care with a Primary Care Physician. AND follow up with them in 10-14 days to repeat UA to ensure infection is resolved and blood no longer present *Be sure to let your PCP know that we sent urine cultures from the [facility] so they can follow up to ensure that you area the on the correct antibiotic Call your doctor office and make appointment for 48 hours (2 days from today) to follow up and get the results of your urine culture and further treatment Stop taking Cipro and start Bactrim Make sure to call back to the [facility] to get the results of your Urine culture to see what antibiotic may treat your infection Straight to ER if you start having fever, chills, abdominal pain etc Prescriptions: Sulfamethoxazole/Trimethoprim [Bactrim DS tablet] 1 each PO BID 10 Days #20 tab Transmission Status: Received by [id number] Referrals: Sugar Garcia APRN [Primary Care Provider] - As needed Time of Disposition: 19:20 Medical Decision Making - Kenny Inquiry Pt receiving controlled substance: No Kenny was queried for this patient: No Vital Signs: 01/10/21 18:39 01/10/21 18:54 Temperature 98.4 F 98.4 F Temperature Source Oral Pulse Rate 86 Pulse Rate [Left] 86 Respiratory Rate 17 17 Blood Pressure 124/70 Blood Pressure [Right Arm] 124/78 Blood Pressure Mean [Right Arm] 93 02 Sat by Pulse Oximetry 97 - Lab Data Lab results reviewed: Yes: I reviewed the patient's lab results. Lab Results 01/10/21 18:53: Urine Color [place], Urine Appearance Clear, Urine pH 5.0, Ur Specific [place] 1.025, Urine Protein 1+, Urine Glucose (UA) 250, Urine Ketones 15, Urine Blood Trace, Urine Nitrate Positive A, Urine Bilirubin 2+ A, Urine Urobilinogen 4, Ur Leukocyte Esterase 3+ A Orders (Tests/Meds): ED MEDICATIONS Discontinued Medications Generic Name Dose Route Start Last Admin Trade Name Art PRN Reason Stop Dose Admin Ceftriaxone Sodium 1 gm 01/10/21 19:08 01/10/21 19:11 Ceftriaxone 1gm Vial IM 01/10/21 19:09 1 gm ONCE ONE Administration Protocol Lidocaine HCl 0 ml 01/10/21 19:08 01/10/21 19:11 Lidocaine 1% 5ml Pf Vial IM 01/10/21 19:09 2.1 ml ONCE ONE Administration ORDERS Category Date Time Status Urine Culture Stat Micro 01/10/21 18:45 Received Medical Decision Narrative: Patient been on Cipro x 7 days and symptoms initially got better but has returned and patient reports getting worse Discussed with pharmacy and unable to see urine culture results from the PCP office and due to possibility of resistance to Cipro will repeat urine culture give injection of Rocephin and change medication to Bactrim DS and have patient follow up in 48 for urine culture results and follow up with PCP or Urology if no improvement or any worsening of symptoms [facility] [place] General Stated complaint: POssible UTI Time Seen by Provider: 01/10/21 18:53 Mode of Arrival: Ambulatory Source of Information: Patient Limitations: No Limitations Description of Symptoms (Rec
[2021-01-10 18:54] VITALS: BP 124/70; PULSE 86; RESP 17; TEMP 36.9; O2SAT 97
[2021-01-10 18:58] LABS: Apearance,Urine Clear (Clear); Bilirubin,Urine 2+ (Negative); Blood, Urine Trace (Negative); Color,Urine Orange (Yellow); Glucose,Urine (UA) 250 (Negative); Ketones,Urine 15 (Negative); Protein,Urine 1+ (Negative); Specific Gravity, Urine 1.025 (1.005-1.030); UTC Leukocyte Esterase,Urine 3+ (Negative); UTC Nitrate,Urine Positive (Negative); Urobilinogen,Urine 4 EU/dl (0.2)
== END 2021-01-10 19:23 | disposition home or self-care (01) ==
PROVIDERS: Emergency Provider Nurse Practitioner; PCP Nurse Practitioner Family
DX: N30.00 Acute cystitis without hematuria (principal); I10 Essential (primary) hypertension; F41.8 Other specified anxiety disorders; E78.5 Hyperlipidemia, unspecified; F17.210 Nicotine dependence, cigarettes, uncomplicated; Z79.899 Other long term (current) drug therapy
CPT/HCPCS: 81003; 87086; 99202; G0463

== ENCOUNTER → 2021-05-19 08:31 | Outpatient (POV) | payer OTHER, SELFPAY ==
[2021-05-19 08:37] VITALS: BP 141/89; PULSE 69; RESP 18; O2SAT 96; BMI 35.4
--- NOTE | 2021-05-19 08:58 | HMH.PAINSOAP ---
[facility] Pain Management SOAP Note Subjective:: Patient is a pleasant 40-year-old white female who presents today for medication refills. She is being treated for degenerative disc disease lumbar spine with lumbar radicular symptoms. She is managed with diclofenac and gabapentin. Patient says she is doing well with her medication regimen. She says that the burning sensation to her left anterior thigh area has subsided, however, she now has a great deal of itching to the area she says that since the burning sensation has dissipated, she is unable to stop scratching the area. We discussed applying Benadryl cream to the area for pruritus. She rates her pain a 3 out of 10. She says the medicines are working well for her. She does also report to me taking ibuprofen and anti-inflammatories along with her diclofenac. Review of Systems General: No recent weight changes, no fever, no sleep disturbances Respiratory: No cough, no shortness of air, no recurring pulmonary infections Cardiovascular/peripheral vascular: No chest pain, no palpitations, no edema, no shortness of breath Gastrointestinal: No new onset incontinence, normal bowel movements reported Genitourinary: No new onset incontinence Musculoskeletal: Low back pain Psychiatric: [Normal mood/affect] Neurological: [Denies weakness in extremities], [denies balance issues] Objective:: Physical exam General: Alert and oriented x3, no acute distress, pleasant and cooperative, [on room air] Lungs: Respirations even and unlabored, symmetrical chest expansion Eyes: PERRL Musculoskeletal: Flexion and extension of lumbar [spine] somewhat guarded secondary to pain, strength in upper and lower extremities [5/5], [antalgic gait noted] Neurological: Speech clear, [stage director equal], no gross sensory deficit Assessment:: Degenerative disc disease lumbar spine with lumbar radiculopathy symptoms Plan:: Patient I had a long discussion concerning her medication regimen. She has been taking diclofenac with other anti-inflammatories. She has been advised of the risks of doing so. She says that she will stop taking other anti-inflammatories and will continue with her diclofenac only. We will continue the patient on diclofenac 75 mg 1 tablet p.o. twice daily and gabapentin 3 her milligrams 1 tablet p.o. nightly. If the patient is not getting significant relief with diclofenac, we can change her to ibuprofen 800 mg along with Pepcid 20 mg 1 tablet p.o. daily. We will give the patient refills and she return to the clinic in 6 months for reevaluation. She does understand she can return to the clinic before this visit if needed. Risks and benefits of the medication have been explained in detail to the patient. If side effects do present with the medication, she has been advised to stop the medication immediately and call the clinic. The patient has been advised to consult with his/her primary care provider and pharmacist regarding drug-drug interaction of medications currently prescribed. Patient has been instructed to contact the clinic with any concerns before the next appointment. Dr. Argueta has reviewed this note and agrees with this plan of care. This note was dictated using voice recognition software and make contain errors or omissions. [facility] History I have reviewed the patient's past medical history: Yes Medical History: Reports:: Anxiety, Asthma, Depression, Hypertension, Internal Pacemaker Denies:: Cancer, Diabetes Mellitus Type 1, Diabetes Mellitus Type 2, Hyperlipidemia, Migraine, MRSA, Seizures *Have you ever received a pneumonia vaccine?: No *Have you received a flu vaccine this season?: No Other Medical History: Reports: Hypothyroidism, Sinus Problems Other Surgeries: Yes: No Previous Surgery, Colonoscopy, Pacemaker, Other Amputation: No Fractures: No - *Social History Smoking Status: Current every day smoker Tobacco Type: cigarettes # Packs/Day (cigarettes): 1 #Yrs smoked (if forme
== END ==
PROVIDERS: Visit Provider Clinical Nurse Specialist Family Health
DX: M51.16 Intervertebral disc disorders with radiculopathy, lumbar region (principal)
CPT/HCPCS: 99212; G0463

== ENCOUNTER 2021-06-18 18:08 | Emergency (ER) | payer OTHER, SELFPAY ==
--- NOTE | 2021-06-18 19:11 | XR_ITS ---
PROCEDURE INFORMATION: Exam: XR Left Forearm Exam date and time: 06/18/2021 7:11 PM Age: 40 years old Clinical indication: Pain; Lower or forearm; Left TECHNIQUE: Imaging protocol: XR Left forearm. Views: 2 views. COMPARISON: No relevant prior studies available. FINDINGS: Bones/joints: Normal. Soft tissues: Normal. IMPRESSION: No acute findings.
[2021-06-18 19:20] VITALS: BP 148/93; PULSE 70; RESP 16; TEMP 37; O2SAT 98; BMI 35.4
--- NOTE | 2021-06-18 19:45 | HMH.EDUTC ---
[facility] Disposition Clinical Impression: Forearm strain Qualifiers: Encounter type: initial encounter Laterality: left Qualified Code(s): S56.912A - Strain of unspecified muscles, fascia and tendons at forearm level, left arm, initial encounter Disposition: Home, Self-Care Condition on Discharge: Good Instructions: DI for Forearm Muscle Strain, Forearm Muscle Strain, How To Perform RICE (Rest, Ice, Compress, Elevate) Additional Instructions: Continue to wear brace on left forearm Follow up with your Family Doctor if no improvement or any worsening of symptoms Return fi needed Straight to ER if any life threatening symptoms You may call the [facility] later this evening for the official reading of your xray Referrals: Sugar Garcia APRN [Primary Care Provider] - As needed Time of Disposition: 19:52 Medical Decision Making - Kenny Inquiry Pt receiving controlled substance: No Kenny was queried for this patient: No Vital Signs: 06/18/21 19:20 Temperature 98.6 F Temperature Source Oral Pulse Rate [Right Brachial] 70 Respiratory Rate 16 Blood Pressure [Right Arm] 148/93 H Blood Pressure Mean [Right Arm] 111 Blood Pressure Source [Right Arm] Automatic Cuff Blood Pressure Position [Right Arm] Sitting 02 Sat by Pulse Oximetry 98 Oxygen Delivery Method Room Air Orders (Tests/Meds): ORDERS Category Date Time Status XR forearm LT 2V Stat Exams 06/18/21 19:11 Taken - Radiology Data #1 Image(s): Forearm Image Reviewed: Yes I reviewed the patient's radiology image Preliminary Findings: No Fracture Seen [facility] HPI - General Stated complaint: left forearm pain Time Seen by Provider: 06/18/21 19:46 Mode of Arrival: Ambulatory Source of Information: Patient Limitations: No Limitations Description of Symptoms (Recalled from Triage Doc. by RN): PATIENT C/O PAIN TO LEFT FOREARM THAT STARTED WHILE SHE WAS UNPACKING 2 WEEKS AGO HEENT Symptoms (Recalled from RN notes): No Resp Symptoms (Recalled from RN notes): No Skin Symptoms (Recalled from RN notes): No MS Symptoms (Recalled from RN notes): Yes Functional Status (Recalled from RN notes): WNL - History of Present Illness Provider Complaint: Patient states that she was unpacking a few weeks ago when she started having pain in her left forearm States that she has continued to have pain on and off since when she moves it certain ways States that when brace is on it feels better - Related Data Home Medications Medication Instructions Recorded Confirmed Cetirizine HCl [Zyrtec] 10 mg PO DAILY 08/16/17 05/30/20 Meloxicam 15 mg PO DAILY 08/16/17 05/30/20 bisoprolol 2.5 PO #90 tab 01/10/19 05/30/20 mg-hydrochlorothiazide 6.25 mg tablet acetaminophen-caffeine 500 mg-65 1 tab PO Q12H PRN 04/15/20 05/30/20 mg tablet diphenhydramine HCl 25 mg capsule 25 mg PO TID PRN 04/15/20 06/30/20 ibuprofen 200 mg capsule 200 mg PO ONCE PRN cap 04/15/20 06/30/20 Norgestimate-Ethinyl Estradiol 1 tab PO DAILY 06/30/20 06/30/20 [Tri-Previfem Tablet] predniSONE [Prednisone 20mg 20 mg PO BID 06/30/20 06/30/20 Tab] Previous Rx's Medication Instructions Recorded Gabapentin [Neurontin 100mg 100 mg PO TID #90 cap 08/29/20 cap] predniSONE [Prednisone 20mg 20 mg PO BID #35 tab 08/29/20 Tab] Diclofenac Sodium [Diclofenac 75mg 75 mg PO BID #60 tab 11/11/20 Tab] Gabapentin [Neurontin 300mg 300 mg PO HS #30 cap 11/11/20 capsule] Diclofenac Sodium [Diclofenac 75mg 75 mg PO BID #60 tab 12/19/20 Tab] Gabapentin [Neurontin 300mg 300 mg PO BID #60 cap 12/19/20 capsule] Sulfamethoxazole/Trimethoprim 1 each PO BID 10 Days #20 tab 01/10/21 [Bactrim DS tablet] Diclofenac Sodium [Diclofenac 75mg 75 mg PO BID #60 tab 04/17/21 Tab] Gabapentin [Neurontin 300mg 300 mg PO BID #60 cap 04/17/21 capsule] Diclofenac Sodium [Diclofenac 75mg 75 mg PO BID #60 tab 05/19/21 Tab] Gabapentin [Neurontin 300mg 300 mg PO HS #30 c
[2021-06-18 19:56] VITALS: BP 148/93; PULSE 70; RESP 16; TEMP 37; O2SAT 98
== END 2021-06-18 20:13 | disposition home or self-care (01) ==
PROVIDERS: Emergency Provider Nurse Practitioner; PCP Nurse Practitioner Family
DX: S56.912A Strain of unspecified muscles, fascia and tendons at forearm level, left arm, initial encounter (principal); X50.0XXA Overexertion from strenuous movement or load, initial encounter; Y92.019 Unspecified place in single-family (private) house as the place of occurrence of the external cause; F17.210 Nicotine dependence, cigarettes, uncomplicated; F41.8 Other specified anxiety disorders; J45.909 Unspecified asthma, uncomplicated; I10 Essential (primary) hypertension; E03.9 Hypothyroidism, unspecified
CPT/HCPCS: 73090; 99202; G0463

== ENCOUNTER → 2021-08-18 20:12 | Outpatient (CLI) | payer OTHER, SELFPAY | PROVIDERS: Visit Provider Nurse Practitioner Family | DX: U07.1 COVID-19 (principal); J02.9 Acute pharyngitis, unspecified | CPT/HCPCS: C9803; U0003; U0005 ==

== ENCOUNTER → 2021-11-25 10:19 | Outpatient (POV) | payer OTHER, SELFPAY ==
[2021-11-25 10:45] VITALS: BP 121/86; PULSE 65; RESP 18; TEMP 36; O2SAT 94; BMI 38.7
--- NOTE | 2021-11-25 11:08 | P.CONS_ITS ---
[facility] Pain Management SOAP Note Subjective:: Is a pleasant 40-year-old white female that presents to our clinic today for medication refill. We have been writing gabapentin 300 mg 1 p.o. daily for her for quite some time. We will send in a refill for her for 90 days. Patient is doing well taking gabapentin and diclofenac. Pain seems to be under control in terms of her low back pain. She denies any radiculopathy symptoms. She rates her pain 3/10 today. Objective:: Is awake alert oriented x3. No acute distress. Flexion-extension lumbar spine somewhat guarded secondary to pain. Deep tendon reflexes upper and lower extremities normal. Motor strength upper and lower extremities normal. There is no gross sensory deficit. Gait is normal. Assessment:: Degenerative disc disease lumbar spine. Plan:: We will send in refill for gabapentin 300 mg 1 p.o. daily. We will continue with diclofenac. [facility] History Medical History: Reports:: Anxiety, Asthma, Depression, Hypertension, Internal Pacemaker Denies:: Cancer, Diabetes Mellitus Type 1, Diabetes Mellitus Type 2, Hyperlipidemia, Migraine, MRSA, Seizures *Have you ever received a pneumonia vaccine?: No *Have you received a flu vaccine this season?: No Other Medical History: Reports: Hypothyroidism, Sinus Problems Other Surgeries: Yes: No Previous Surgery, Colonoscopy, Pacemaker, Other Amputation: No Fractures: No - *Social History Smoking Status: Current every day smoker Tobacco Type: cigarettes # Packs/Day (cigarettes): 1 #Yrs smoked (if former smoker): 24 Alcohol Intake: never Alcohol Intake Frequency:: holidays/special occasions only Substance Use Type: denies use *Occupational Status:: employed Housing: house Household Members: spouse, children *Travel in the last 8 weeks: None - Psychiatric History Pschychiatric History:: Reports:: Anxiety, Depression Family Hx:: Diabetes, Heart Attack, Hypertension, Stroke, Hyperlipidemia
== END ==
PROVIDERS: Visit Provider Nurse Anesthetist, Certified Registered
DX: M51.36 Other intervertebral disc degeneration, lumbar region (principal)
CPT/HCPCS: 99212; G0463

== ENCOUNTER → 2021-12-09 09:36 | Outpatient (CLI) | payer OTHER, SELFPAY ==
[2021-12-09 10:34] LABS: Chloride 107 mmol/L (98-107); Sodium 141 mmol/L (136-145)
[2021-12-09 10:37] LABS: Alanine Aminotransferase 53 U/L (12-78); Albumin/Globulin Ratio 1.3 (1.1-1.8); Alkaline Phosphatase 88 U/L (38-126); Aspartate Amino Transferase 80 U/L (14-36); Bilirubin,Total 0.6 mg/dl (0.2-1.3); Blood Urea Nitrogen 14 mg/dl (7-17); Calcium 9.7 mg/dl (8.4-10.2); Carbon Dioxide 28 mmol/L (22.0-30.0); Cholesterol 202 mg/dl (140-200); Estimated Glomerular Filt Rate 69 ml/min (>60); GFR (African American) 83 ML/MIN (>60); Glucose 124 mg/dl (74-100); Triglycerides 187 mg/dl (30-150); VLDL Cholesterol 37 mg/dL (0-40)
[2021-12-09 10:38] LABS: Chol/HDL Ratio 4.8 (1-3.5); HDL Cholesterol 42 mg/dl (40-60)
[2021-12-09 10:48] LABS: Direct LDL Cholesterol 119.35 mg/dL (100-129)
[2021-12-09 11:08] LABS: Thyroid Stimulating Hormone 1.86 uIU/mL (0.465-4.68)
== END ==
PROVIDERS: Visit Provider Nurse Practitioner Family
DX: I10 Essential (primary) hypertension (principal); Z79.899 Other long term (current) drug therapy
CPT/HCPCS: 36415; 80053; 80061; 84443

== ENCOUNTER 2022-01-11 18:25 | Emergency (ER) | payer OTHER, SELFPAY ==
[2022-01-11 18:35] VITALS: BP 135/77; PULSE 82; RESP 18; TEMP 37.1; O2SAT 98; BMI 37.3
--- NOTE | 2022-01-11 19:09 | HMH.EDUTC ---
[facility] [place] Clinical Impression: Abscess Disposition: Home, Self-Care Condition on Discharge: Good Instructions: Boil, DI for Skin Abscess, Trimethoprim/Sulfamethoxazole (Alternative Therapy), Cephalexin Additional Instructions: *Start antibiotic(s) immediately and be sure to take as ordered for the FULL length of time although you may be feeling better or start to see improvement in the next 24-48 hours *Monitor closely. Outlined redness so that you can monitor easier. Follow up immediately for new or worsening symptoms including but not limited to redness, swelling, streaking from site fever or chills. *Warm compress 15 minutes 3-4 times day *Never squeeze or pop these on your own. Seek immediate medical attention next time this occurs *Monitor Temp. Tylenol every 4 hours as needed and ibuprofen every 6 hours as needed (as long as your primary care doctor has told you that it is ok to take both. For fever, aches, pain. ER if no less that 101 despite Tylenol and ibuprofen Follow up with your family doctor/primary care physician in the next 48-72 hours if no improvement Prescriptions: Sulfamethoxazole/Trimethoprim [Bactrim DS tablet] 1 each PO BID 7 Days #14 tab Transmission Status: Pending to [id number] cephALEXin [cephALEXin 500mg capsule*] 500 mg PO Q6H 7 Days #28 cap Transmission Status: Pending to [facility] Mupirocin Calcium [Mupirocin 2% Cream 15gm] 1 applicatio TP TID #15 gm Transmission Status: Pending to [id number] Referrals: Sugar Garcia APRN [Primary Care Provider] - As needed Time of Disposition: 19:27 Medical Decision Making - Kenny Inquiry Pt receiving controlled substance: No Kenny was queried for this patient: No Vital Signs: 01/11/22 18:35 Temperature 98.7 F Temperature Source Oral Pulse Rate [Right Brachial] 82 Respiratory Rate 18 Blood Pressure [Right Arm] 135/77 Blood Pressure Mean [Right Arm] 96 Blood Pressure Source [Right Arm] Automatic Cuff Blood Pressure Position [Right Arm] Sitting 02 Sat by Pulse Oximetry 98 Oxygen Delivery Method Room Air Medical Decision Narrative: medication discussed with pharmacy [facility] [place] HPI - General Stated complaint: left leg bump Time Seen by Provider: 01/11/22 19:09 Mode of Arrival: Ambulatory Source of Information: Patient Limitations: No Limitations Description of Symptoms (Recalled from Triage Doc. by RN): PATIENT C/O POSSIBLE BOIL TO LEFT BUTTOCK/SYLVIA AREA X 3 DAYS. C/O PAIN TO AREA. DENIES FEVER HEENT Symptoms (Recalled from RN notes): No Resp Symptoms (Recalled from RN notes): No Skin Symptoms (Recalled from RN notes): Yes MS Symptoms (Recalled from RN notes): No Functional Status (Recalled from RN notes): WNL - History of Present Illness Provider Complaint: Patient states that she noticed a boil like lesion on her left upper leg beside her vagina area States that she gets boils and sometimes they go away and sometimes she has to have antibiotics for them States that it is tender to the touch and she has been using warm compresses on it but it hasnt helped it States that she has a couple left over bactrim and she started them this morning - Related Data Home Medications Medication Instructions Recorded Confirmed Cetirizine HCl [Zyrtec] 10 mg PO DAILY 08/16/17 11/04/21 bisoprolol 2.5 2.5 mg PO DAILY #90 tab 01/10/19 11/04/21 mg-hydrochlorothiazide 6.25 mg tablet acetaminophen-caffeine 500 mg-65 1 tab PO Q12H PRN 04/15/20 11/04/21 mg tablet diphenhydramine HCl 25 mg capsule 25 mg PO TID PRN 04/15/20 11/04/21 ibuprofen 200 mg capsule 200 mg PO ONCE PRN cap 04/15/20 11/04/21 Norgestimate-Ethinyl Estradiol 1 tab PO DAILY 06/30/20 11/04/21 [Tri-Previfem Tablet] Diclofenac Sodium [Diclofenac 75mg 75 mg PO BID 11/25/21 Tab] Gabapentin [Neurontin 300mg 300 mg PO BID 11/25/21 capsule] Previous Rx's Medication Instructions Recorded Diclofenac Sodium [Diclofenac 75mg 75 mg PO
[2022-01-11 19:30] VITALS: BP 135/77; PULSE 82; RESP 18; TEMP 37.1; O2SAT 98
== END 2022-01-11 19:36 | disposition home or self-care (01) ==
PROVIDERS: Emergency Provider Nurse Practitioner; PCP Nurse Practitioner Family
DX: L02.416 Cutaneous abscess of left lower limb (principal)
CPT/HCPCS: 99212; G0463

== ENCOUNTER → 2022-03-09 08:40 | Outpatient (POV) | payer OTHER, SELFPAY ==
--- NOTE | 2022-03-09 09:24 | HMH.PAINSOAP ---
[facility] Pain Management SOAP Note Subjective:: Patient is a pleasant 41-year-old female who is here for medication refill and follow-up. Patient is currently being treated for degenerative disc disease of lumbar spine with lumbar radiculopathy symptoms. Patient is being managed with gabapentin 300 mg daily and diclofenac. Patient denies any side effects from the medications. Patient denies any changes to the location and type of pain. Patient states that this is adequately helping manage their pain. Rates pain as 3 out of 10. [facility] number [id number] with an active morphine equivalent 0. Drug screens have been reviewed and appropriate. Review of Systems: General: No recent weight changes, no fever, no sleep disturbances Respiratory: No cough, no shortness of air, no recurring pulmonary infections Cardiovascular/peripheral vascular: No chest pain, no palpitations, no edema, no shortness of breath Gastrointestinal: No new onset incontinence, normal bowel movements reported Genitourinary: No new onset incontinence Musculoskeletal: Low back pain Psychiatric: [Normal mood/affect] Neurological: [Denies weakness in extremities], [denies balance issues] Objective:: Physical Exam: General: Alert and oriented x3, no acute distress, pleasant and cooperative Lungs: Respirations even and unlabored, symmetrical chest expansion Eyes: PERRL Musculoskeletal: Flexion and extension of lumbar [spine] somewhat guarded secondary to pain, [antalgic gait noted] Neurological: Speech clear, no gross sensory deficit Assessment:: Degenerative disc disease of the lumbar spine with lumbar radiculopathy symptoms Plan:: We will continue the patient's gabapentin 300 mg daily and diclofenac 75 mg twice a day. We will provide the patient with 3 months of refills. We would like to see the patient back in 3 months for follow-up and reevaluation of chronic pain syndrome. Patient has been advised of risks of oversedation with the prescribed medication. Narcan has been offered to the patient in the event of oversedation. Patient has been advised that a family member should also be educated regarding administration of Narcan. Patient has been instructed to contact the clinic with any concerns before the next appointment. Dr. Argueta has reviewed this note and agrees with this plan of care. This note was dictated using voice recognition software and make contain errors or omissions. [facility] History Medical History: Reports:: Anxiety, Asthma, Depression, Hypertension, Internal Pacemaker Denies:: Cancer, Diabetes Mellitus Type 1, Diabetes Mellitus Type 2, Hyperlipidemia, Migraine, MRSA, Seizures *Have you ever received a pneumonia vaccine?: No *Have you received a flu vaccine this season?: No Other Medical History: Reports: Hypothyroidism, Sinus Problems Other Surgeries: Yes: No Previous Surgery, Colonoscopy, Pacemaker, Other Amputation: No Fractures: No - *Social History Smoking Status: Current every day smoker Tobacco Type: cigarettes # Packs/Day (cigarettes): 1 #Yrs smoked (if former smoker): 24 Alcohol Intake: never Alcohol Intake Frequency:: holidays/special occasions only Substance Use Type: denies use *Occupational Status:: other Housing: house Household Members: spouse, children *Travel in the last 8 weeks: Inside the [place] - Psychiatric History Pschychiatric History:: Reports:: Anxiety, Depression Family Hx:: Diabetes, Heart Attack, Hypertension, Stroke, Hyperlipidemia
[2022-03-09 09:26] VITALS: BP 145/85; PULSE 72; RESP 20; TEMP 36.3; O2SAT 94; BMI 31.7
== END ==
PROVIDERS: Visit Provider Student in an Organized Health Care Education/Training Program
DX: M51.16 Intervertebral disc disorders with radiculopathy, lumbar region (principal); Z72.0 Tobacco use
CPT/HCPCS: 99212; G0463

== ENCOUNTER → 2022-06-08 08:22 | Outpatient (POV) | payer OTHER, SELFPAY ==
[2022-06-08 08:30] VITALS: BP 127/77; PULSE 77; RESP 18; TEMP 36.7; O2SAT 98; BMI 35.9
--- NOTE | 2022-06-08 08:38 | A.OFFVIS_ITS ---
[facility] Pain Management SOAP Note Subjective:: Patient is a pleasant 41-year-old female who presents today for medication refill and follow-up. 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 Today she rates her pain a 3 out of 10. She states the pain is primarily in her low back on the left side that radiates into the left leg. Patient describes this as a burning, itching sensation down her leg that is worse with prolonged sitting or increased activity. Patient denies any new trauma trauma or injury. Patient denies any change in location or type of pain she experiences. Patient is currently managed with gabapentin 300 mg daily and diclofenac 75 mg twice daily. Patient denies any side effects from these medications. She states these medications do adequately help manage her pain symptoms. She is requesting a refill at today's visit. Her Kenny is [phone]. It has been reviewed and appropriate. Review of Systems: General: No recent weight changes, no fever, no sleep disturbances Respiratory: No cough, no shortness of air, no recurring pulmonary infections Cardiovascular/peripheral vascular: No chest pain, no palpitations, no edema, no shortness of breath Gastrointestinal: No new onset incontinence, normal bowel movements reported Genitourinary: No new onset incontinence Musculoskeletal: Low back pain, left leg pain Psychiatric: [Normal mood/affect] Neurological: [Denies weakness in extremities], [denies balance issues] Objective:: Physical Exam: General: Alert and oriented x3, no acute distress, pleasant and cooperative Lungs: Respirations even and unlabored, symmetrical chest expansion Eyes: PERRL Musculoskeletal: Flexion and extension of lumbar [spine] somewhat guarded secondary to pain, [antalgic gait noted] Neurological: Speech clear, no gross sensory deficit Assessment:: Degenerative disc disease lumbar spine with lumbar radiculopathy symptoms Plan:: Patient continues to have pain in her low back that radiates into her left leg however patient continues to do well with her current medication regimen. I will send in a refill of her gabapentin 300 mg daily and diclofenac 75 mg twice daily and provide a 3-month supply of both of these medications. Patient will return to clinic in 3 months for reevaluation of symptoms, medication refill and follow-up. Patient has been instructed to contact the clinic with any concerns before the next appointment. Dr. Argueta has reviewed this note and agrees with this plan of care. This note was dictated using voice recognition software and make contain errors or omissions. [facility] Medical History (Updated 04/29/22 @ 16:05 by Mary West APRN) Major depressive disorder Panic disorder Social History Smoking Status: Current every day smoker tobacco type: cigarettes packs per day: 1 second hand exposure: No alcohol intake: never substance use type: denies use current occupational status: employed Travel in the last 8 weeks: None household members: spouse and children housing: house number of children: 3 current occupational exposures/hazards: No caffeine: Yes
== END | disposition home or self-care (01) ==
PROVIDERS: PCP Nurse Practitioner Family; Visit Provider Nurse Practitioner Family
DX: M51.16 Intervertebral disc disorders with radiculopathy, lumbar region (principal); Z72.0 Tobacco use; Z79.899 Other long term (current) drug therapy
CPT/HCPCS: 99212; G0463

== ENCOUNTER → 2022-09-07 08:31 | Outpatient (POV) | payer OTHER, SELFPAY ==
[2022-09-07 08:48] VITALS: BP 131/75; PULSE 82; RESP 18; O2SAT 97; BMI 36.9
--- NOTE | 2022-09-07 09:02 | EXP.PAIN.SOA ---
[facility] Pain Management SOAP Note Subjective:: Patient is a pleasant 42-year-old female who presents today for medication refill and 3-month follow-up. 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 Today she rates her pain a 3 out of 10. Patient denies any new trauma or injury. Patient denies any change location or type of pain she experiences. Patient is currently managed with gabapentin 300 mg daily and diclofenac 75 mg twice a day. Patient denies any side effects from these medications. She states these medications do work well with her current pain symptoms. She is requesting a refill at today's visit. Her Kenny is [phone]. Its been reviewed and appropriate. Review of Systems: General: No recent weight changes, no fever, no sleep disturbances Respiratory: No cough, no shortness of air, no recurring pulmonary infections Cardiovascular/peripheral vascular: No chest pain, no palpitations, no edema, no shortness of breath Gastrointestinal: No new onset incontinence, normal bowel movements reported Genitourinary: No new onset incontinence Musculoskeletal: Low back pain Psychiatric: [Normal mood/affect] Neurological: [Denies weakness in extremities], [denies balance issues] Objective:: Physical Exam: General: Alert and oriented x3, no acute distress, pleasant and cooperative Lungs: Respirations even and unlabored, symmetrical chest expansion Eyes: PERRL Musculoskeletal: Flexion and extension of lumbar [spine] somewhat guarded secondary to pain, [antalgic gait noted] Neurological: Speech clear, no gross sensory deficit ORT score updated with low risk Assessment:: Degenerative disc disease of lumbar spine with lumbar radiculopathy symptoms Plan:: Patient continues to experience significant pain in her low back and radiating into her legs however she is doing well with her current medication regimen. I will refill the patient's gabapentin 300 mg daily and diclofenac 75 mg twice daily and provide a 3-month supply of this medication. Patient will return to clinic in 3 months for reevaluation of symptoms, medication refill and follow-up. Patient has been instructed to contact the clinic with any concerns before the next appointment. Dr. Argueta has reviewed this note and agrees with this plan of care. This note was dictated using voice recognition software and make contain errors or omissions. [facility] Disclaimer: The information contained in this section may have been updated after the patient was seen, as this information can be updated by other users. Medical History (Updated 04/29/22 @ 16:05 by Mary West APRN) Major depressive disorder Panic disorder Social History Smoking Status: Current every day smoker tobacco type: cigarettes packs per day: 1 second hand exposure: No alcohol intake: never substance use type: denies use current occupational status: employed Travel in the last 8 weeks: None household members: spouse and children housing: house number of children: 3 current occupational exposures/hazards: No caffeine: Yes
== END | disposition home or self-care (01) ==
PROVIDERS: PCP Thoracic Surgery (Cardiothoracic Vascular Surgery); Visit Provider Nurse Practitioner Family
DX: M51.16 Intervertebral disc disorders with radiculopathy, lumbar region (principal)
CPT/HCPCS: 99212; G0463

== ENCOUNTER 2022-10-28 17:38 | Emergency (ER) | payer OTHER, SELFPAY ==
--- NOTE | 2022-10-28 19:22 | EXP.UTC ---
Discharge Plan Disposition Patient Disposition: Home, Self-Care Condition: Good Prescriptions Prescriptions: New benzonatate [benzonatate] 100 mg capsule 100 mg PO TIDP PRN (Reason: Cough) Qty: 30 0RF methylprednisolone 4 mg Tablets,Dose Pack 4 mg PO DIRECTED Qty: 21 0RF amoxicillin-pot clavulanate 875-125 mg Tablet 1 tab PO Q12H Qty: 20 0RF No Action bisoprolol-hydrochlorothiazide 2.5-6.25 mg tablet 2.5 mg PO DAILY Qty: 90 Excedrin Tension Headache 500-65 mg tablet 1 tab PO Q12H PRN (Reason: PAIN) vilazodone 40 mg tablet 40 mg PO DAILY Qty: 30 1RF Rx Instructions: must administer with a meal/food clonazepam [Klonopin] 0.5 mg tablet 0.5 mg PO HS PRN (Reason: anxiety) Qty: 30 1RF cetirizine 10 MG capsule 10 mg PO DAILY diclofenac sodium 75 MG tablet,delayed release (DR/EC) 75 mg PO BID Qty: 60 2RF gabapentin 300 MG capsule 300 mg PO DAILY 90 Days Qty: 90 0RF norgestimate-ethinyl estradiol 1 EACH tablet 1 tab PO DAILY Referrals Follow up/Referrals: Sarika Collado MD [Primary Care Provider] - See instructions Activity Restrictions/Add. Instructions Additional Instructions/Restrictions: Drink plenty of fluids. Take tylenol or ibuprofen for pain or fever. Take the medications as directed. Follow up with your regular doctor. GO TO THE ER FOR ANY WORSENING SYMPTOMS Don't start the oral steroids until tomorrow, since you had the shot here today. Clinical Impressions Clinical Impression: Asthma exacerbation Instructions Patient Instructions: Asthma -- Adult, DI for Asthma -- Adult, Ceftriaxone Injection, Methylprednisolone Injection Discharge ED Provider: Willis Bai [facility] General Stated complaint: SOA, cough Time Seen by Provider: 10/28/22 19:21 History of Present Illness Provider Complaint: She c/o 1 week of worsening sinus and chest congestion. She has a history of asthma. She states that her normal asthma symptoms are worsening and she is having to use her rescue inhaler too much over the past couple of days. Related Data Home Medications Medication Instructions Recorded Confirmed cetirizine 10 mg capsule 10 mg PO DAILY Allergy symptoms 08/16/17 09/07/22 bisoprolol 2.5 2.5 mg PO DAILY BLOOD PRESSURE #90 01/10/09/07/22 mg-hydrochlorothiazide 6.25 mg tabs tablet acetaminophen-caffeine 500 mg-65 1 tab PO Q12H PRN PAIN 04/15/20 09/07/22 mg tablet (Excedrin Tension Headache) norgestimate-ethinyl estradiol 1 tab PO DAILY control 06/30/20 09/07/22 0.18 mg/0.215mg/0.25mg-35 mcg(28)tablet Previous Rx's Medication Instructions Recorded vilazodone 40 mg tablet 40 mg PO DAILY Depression #30 tabs 07/08/22 diclofenac sodium 75 mg 75 mg PO BID Pain #60 tabs 09/07/22 tablet,delayed release gabapentin 300 mg capsule 300 mg PO DAILY Pain 90 days #90 09/07/22 caps clonazepam 0.5 mg tablet (Klonopin) 0.5 mg PO HS PRN anxiety #30 tabs 09/08/22 amoxicillin 875 mg-potassium 1 tab PO Q12H #20 tabs 10/28/22 clavulanate 125 mg tablet benzonatate 100 mg capsule 100 mg PO TIDP PRN Cough #30 caps 10/28/22 methylprednisolone 4 mg tablets in 4 mg PO DIRECTED #21 tabs 10/28/22 a dose pack Allergies Allergy/AdvReac Type Severity Reaction Status Date / Time No Known Allergies Allergy Verified 10/28/22 19:33 PFS PFS Disclaimer: The information contained in this section may have been updated after the patient was seen, as this information can be updated by other users. Medical History Major depressive disorder Panic disorder Social History Smoking Status: Current every day smoker tobacco type: cigarettes packs per day: 1 second hand exposure: No alcohol intake: never substance use type: denies use current occupational status: employed Travel in the last 8 weeks: None
[2022-10-28 19:30] VITALS: BP 146/68; PULSE 79; RESP 20; TEMP 37; O2SAT 96; BMI 36.9
[2022-10-28 20:21] VITALS: BP 146/68; PULSE 79; RESP 20; TEMP 37; O2SAT 96
== END 2022-10-28 20:21 | disposition home or self-care (01) ==
PROVIDERS: Emergency Provider Nurse Practitioner Family; PCP Family Medicine
DX: J45.901 Unspecified asthma with (acute) exacerbation (principal); F17.210 Nicotine dependence, cigarettes, uncomplicated
CPT/HCPCS: 96372; 99212; 99214; G0463; J0696

== ENCOUNTER → 2022-12-10 08:24 | Outpatient (POV) | payer OTHER, SELFPAY ==
--- NOTE | 2022-12-10 08:37 | EXP.PAIN.SOA ---
[facility] Pain Management SOAP Note Subjective:: Patient is a pleasant 42-year-old female who presents today for medication refill and follow-up. 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 Today she rates her pain a 2 out of 10. Patient denies any new injury or trauma. She denies any change to the pain symptoms she experiences. She is currently managed with diclofenac 75 mg twice a day and gabapentin 300 mg daily. Patient denies any side effects to these medications. She states this medication does make her pain symptoms more manageable on a day-to-day basis. She is requesting refills. Her Kenny is [phone]. Its been reviewed and appropriate. Review of Systems: General: No recent weight changes, no fever, no sleep disturbances Respiratory: No cough, no shortness of air, no recurring pulmonary infections Cardiovascular/peripheral vascular: No chest pain, no palpitations, no edema, no shortness of breath Gastrointestinal: No new onset incontinence, normal bowel movements reported Genitourinary: No new onset incontinence Musculoskeletal: Low back pain Psychiatric: [Normal mood/affect] Neurological: [Denies weakness in extremities], [denies balance issues] Objective:: Physical Exam: General: Alert and oriented x3, no acute distress, pleasant and cooperative Lungs: Respirations even and unlabored, symmetrical chest expansion Eyes: PERRL Musculoskeletal: Flexion and extension of lumbar [spine] somewhat guarded secondary to pain, [antalgic gait noted] Neurological: Speech clear, no gross sensory deficit Assessment:: Degenerative disc disease of lumbar spine with lumbar radiculopathy symptoms Plan:: Patient is doing well with her current medication regimen. I will refill her gabapentin 300 mg daily and diclofenac 75 mg twice a day and give a 3-month supply of this medication. Patient will return to clinic in 3 months for reevaluation of symptoms and medication refill. Patient has been instructed to contact the clinic with any concerns before the next appointment. Dr. Argueta has reviewed this note and agrees with this plan of care. This note was dictated using voice recognition software and make contain errors or omissions. [facility] Disclaimer: The information contained in this section may have been updated after the patient was seen, as this information can be updated by other users. Medical History Major depressive disorder Panic disorder Social History Smoking Status: Current every day smoker tobacco type: cigarettes packs per day: 1 second hand exposure: No alcohol intake: never substance use type: denies use current occupational status: employed Travel in the last 8 weeks: None household members: spouse and children housing: house number of children: 3 current occupational exposures/hazards: No caffeine: Yes
[2022-12-10 08:56] VITALS: BP 146/83; PULSE 66; RESP 18; O2SAT 97; BMI 34.4
== END | disposition home or self-care (01) ==
PROVIDERS: PCP Nurse Practitioner Family; Visit Provider Nurse Practitioner Family
DX: M51.16 Intervertebral disc disorders with radiculopathy, lumbar region (principal)
CPT/HCPCS: 99212; G0463

== ENCOUNTER → 2023-03-08 08:26 | Outpatient (POV) | payer OTHER, SELFPAY ==
[2023-03-08 08:30] VITALS: BP 126/77; PULSE 78; RESP 20; O2SAT 95; BMI 35.9
--- NOTE | 2023-03-08 08:32 | EXP.PAIN.SOA ---
[facility] Pain Management SOAP Note Subjective:: Patient is a pleasant 42-year-old female who presents today for 3-month follow-up and medication refill. 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 Today she rates her pain a 3 out of 10. Patient denies any new trauma or injury. Patient denies any change to location or type of pain she experiences. She has currently prescribed diclofenac 75 mg twice a day and gabapentin 300 mg daily. She denies any side effects from this medication. Her Kenny is [phone]. Its been reviewed and appropriate. Review of Systems: General: No recent weight changes, no fever, no sleep disturbances Respiratory: No cough, no shortness of air, no recurring pulmonary infections Cardiovascular/peripheral vascular: No chest pain, no palpitations, no edema, no shortness of breath Gastrointestinal: No new onset incontinence, normal bowel movements reported Genitourinary: No new onset incontinence Musculoskeletal: Low back pain Psychiatric: [Normal mood/affect] Neurological: [Denies weakness in extremities], [denies balance issues] Objective:: Physical Exam: General: Alert and oriented x3, no acute distress, pleasant and cooperative Lungs: Respirations even and unlabored, symmetrical chest expansion Eyes: PERRL Musculoskeletal: Flexion and extension of lumbar [spine] somewhat guarded secondary to pain, [antalgic gait noted] Neurological: Speech clear, no gross sensory deficit Assessment:: Degenerative disc disease of lumbar spine with lumbar radiculopathy symptoms Plan:: I will refill the patient's diclofenac 75 mg twice a day and gabapentin 300 mg once a day and provide a 3-month supply of this medication. Patient will return to clinic in 3 months for reevaluation of symptoms and plan of care. Patient has been instructed to contact the clinic with any concerns before the next appointment. Dr. Argueta has reviewed this note and agrees with this plan of care. This note was dictated using voice recognition software and make contain errors or omissions. [facility] Disclaimer: The information contained in this section may have been updated after the patient was seen, as this information can be updated by other users. Medical History Major depressive disorder Panic disorder Social History Smoking Status: Current every day smoker tobacco type: cigarettes packs per day: 1 second hand exposure: No alcohol intake: never substance use type: denies use current occupational status: employed Travel in the last 8 weeks: None household members: spouse and children housing: house number of children: 3 current occupational exposures/hazards: No caffeine: Yes
== END | disposition home or self-care (01) ==
PROVIDERS: PCP Nurse Practitioner Family; Visit Provider Nurse Practitioner Family
DX: M51.16 Intervertebral disc disorders with radiculopathy, lumbar region (principal)
CPT/HCPCS: 99212; G0463

== ENCOUNTER 2023-06-10 23:58 | Emergency (ER) | payer SELFPAY ==
[2023-06-11 00:05] VITALS: BP 118/80; PULSE 73; RESP 17; TEMP 36.8; O2SAT 100; BMI 35.9
--- NOTE | 2023-06-11 00:20 | HMH.EDGENADL ---
Discharge Plan Disposition Patient Disposition: Home, Self-Care Condition: Good Prescriptions Prescriptions: No Action bisoprolol-hydrochlorothiazide 2.5-6.25 mg tablet 2.5 mg PO DAILY Qty: 90 clonazepam [Klonopin] 0.5 mg tablet 0.5 mg PO HS PRN (Reason: anxiety) Qty: 30 1RF vilazodone 40 mg tablet 40 mg PO DAILY Qty: 30 1RF Rx Instructions: must administer with a meal/food cetirizine 10 MG capsule 10 mg PO DAILY norgestimate-ethinyl estradiol 1 EACH tablet 1 tab PO DAILY diclofenac sodium 75 MG tablet,delayed release (DR/EC) 75 mg PO BID Qty: 60 2RF gabapentin 300 MG capsule 300 mg PO DAILY 90 Days Qty: 30 2RF Referrals Follow up/Referrals: Sugar Garcia APRN [Primary Care Provider] - See instructions Activity Restrictions/Add. Instructions Additional Instructions/Restrictions: Please follow wound care instructions as discussed. Please follow-up with your primary care provider. Please return to the emergency department if you develop any new or worsening symptoms or become concerned for your health. Clinical Impressions Clinical Impression: Laceration of foot Qualifiers: Encounter type: initial encounter Laterality: left Qualified Code(s): S91.312A - Laceration without foreign body, left foot, initial encounter Instructions Patient Instructions: DI for Laceration Repair Discharge ED Provider: Larry Barkley General Adult HPI General Chief complaint: Wound/Laceration Stated complaint: AO 06/10/23 Laceration left foot Time Seen by Provider: 06/11/23 00:00 Mode of Arrival: Family Vehicle Source of Information: Patient Limitations: No Limitations Description of Symptoms (Recalled from ER Triage Doc. by RN): 42 yo female presents with chief complaint left foot laceration. States she was opening a can and the lid fell down on her foot and cut it. Patient describes moderate bleeding at home, but noted minimal bleeding upon presentation to ed. History of Present Illness HPI narrative: 42-year-old female, previously healthy presents with small laceration on her left dorsal foot after the lid from a metal can of all of this no onto the foot. She reports that there was significant bleeding at the time, bleeding has now subsided. She denies any other injury. She is not sure when her last tetanus shot was. Related Data Home Medications Medication Instructions Recorded Confirmed cetirizine 10 mg capsule 10 mg PO DAILY Allergy symptoms 08/16/17 06/11/23 bisoprolol 2.5 2.5 mg PO DAILY BLOOD PRESSURE #90 01/10/19 06/11/23 mg-hydrochlorothiazide 6.25 mg tabs tablet norgestimate-ethinyl estradiol 1 tab PO DAILY control 06/30/20 06/11/23 0.18 mg/0.215mg/0.25mg-35 mcg(28)tablet Previous Rx's Medication Instructions Recorded diclofenac sodium 75 mg 75 mg PO BID Pain #60 tabs 03/08/23 tablet,delayed release gabapentin 300 mg capsule 300 mg PO DAILY Pain 90 days #30 03/08/23 caps clonazepam 0.5 mg tablet (Klonopin) 0.5 mg PO HS PRN anxiety #30 tabs 05/12/23 vilazodone 40 mg tablet 40 mg PO DAILY Depression #30 tabs 05/12/23 Allergies Allergy/AdvReac Type Severity Reaction Status Date / Time No Known Allergies Allergy Verified 05/12/23 09:34 [facility] Disclaimer: The information contained in this section may have been updated after the patient was seen, as this information can be updated by other users. Medical History Major depressive disorder Panic disorder Social History Smoking Status: Unknown if ever smoked second hand exposure: No alcohol intake: never substance use type: denies use current occupational status: employed Travel in the last 8 weeks: None household members: spouse and children housing: house number of children: 3 current occupational exposures/hazards: No caffeine: Yes ROS Obtaine
[2023-06-11 00:37] VITALS: BP 118/80; PULSE 73; RESP 17; TEMP 36.8; O2SAT 98
== END 2023-06-11 00:38 | disposition home or self-care (01) ==
PROVIDERS: Emergency Provider Emergency Medicine; PCP Nurse Practitioner Family
DX: S91.312A Laceration without foreign body, left foot, initial encounter (principal); F33.9 Major depressive disorder, recurrent, unspecified; F41.1 Generalized anxiety disorder; W26.8XXA Contact with other sharp object(s), not elsewhere classified, initial encounter; Z23 Encounter for immunization
CPT/HCPCS: 12001; 90715; 96372; 99283

== ENCOUNTER → 2023-06-25 08:42 | Outpatient (POV) | payer OTHER, SELFPAY ==
[2023-06-25 10:03] VITALS: BP 121/39; PULSE 73; RESP 18; O2SAT 96; BMI 36.9
--- NOTE | 2023-06-25 10:29 | EXP.PAIN.SOA ---
[facility] Pain Management SOAP Note Subjective:: This patient is a very pleasant 42-year-old female comes our clinic today for 3-month follow-up and medication refill. Were currently treating the patient for degenerative disc disease lumbar spine multilevels. Lumbar radiculopathy. Today she rates her pain 3/10. Patient is being managed with diclofenac 75 mg 1 p.o. twice daily. Also, gabapentin 300 mg 1 p.o. daily. Patient reports medications help decrease her pain by 50 to 75%. She does not report any side effects from the pain medication. Her Kenny #[id number] has been reviewed and appropriate. Patient describes low back pain as constant, dull, aching. Objective:: Patient is awake alert Ventress x3. In no acute distress. Flexion-extension cervical lumbar spine guarded secondary to pain. Deep tendon reflexes upper and lower extremities normal. Motor strength upper lower extremities normal. There is no gross sensory deficit. Gait is normal. Assessment:: Degenerative disc disease lumbar spine with ulcerated lumbar radiculopathy. Plan:: I will refill the patient's pain medication. Diclofenac 75 mg 1 p.o. twice daily. Gabapentin 300 mg 1 p.o. daily. I will give her 2 refills per medication. She will return to see us in 3 months. [facility] Disclaimer: The information contained in this section may have been updated after the patient was seen, as this information can be updated by other users. Medical History Major depressive disorder Panic disorder Social History Smoking Status: Unknown if ever smoked second hand exposure: No alcohol intake: never substance use type: denies use current occupational status: employed Travel in the last 8 weeks: None household members: spouse and children housing: house number of children: 3 current occupational exposures/hazards: No caffeine: Yes
== END | disposition home or self-care (01) ==
PROVIDERS: PCP Nurse Practitioner Family; Visit Provider Nurse Anesthetist, Certified Registered
DX: M51.16 Intervertebral disc disorders with radiculopathy, lumbar region (principal)
CPT/HCPCS: 99212; G0463

== ENCOUNTER 2023-07-16 18:21 | Emergency (ER) | payer OTHER, SELFPAY ==
[2023-07-16 18:40] VITALS: BP 107/70; PULSE 74; RESP 18; TEMP 37.2; O2SAT 96; BMI 35.1
--- NOTE | 2023-07-16 18:43 | EXP.UTC ---
Discharge Plan Disposition Patient Disposition: Home, Self-Care Condition: Good Prescriptions Prescriptions: New azithromycin [Zithromax] 250 mg tablet 250 mg PO UD DOSE PK Qty: 6 0RF Rx Instructions: Take two (2) tablets today, then one (1) tablet days #2 thru #5 prednisone [prednisone] 20 mg tablet 20 mg PO BID 3 Days Qty: 6 0RF benzonatate [benzonatate] 100 mg capsule 100 mg PO TIDP PRN (Reason: Cough) Qty: 30 0RF No Action bisoprolol-hydrochlorothiazide 2.5-6.25 mg tablet 2.5 mg PO DAILY Qty: 90 vilazodone 40 mg tablet 40 mg PO DAILY Qty: 30 1RF Rx Instructions: must administer with a meal/food clonazepam [Klonopin] 0.5 mg tablet 0.5 mg PO HS PRN (Reason: anxiety) Qty: 30 1RF cetirizine 10 MG capsule 10 mg PO DAILY gabapentin 300 MG capsule 300 mg PO DAILY 90 Days Qty: 30 2RF diclofenac sodium 75 MG tablet,delayed release (DR/EC) 75 mg PO BID Qty: 60 0RF norgestimate-ethinyl estradiol 1 EACH tablet 1 tab PO DAILY Referrals Follow up/Referrals: Sugar Garcia APRN [Primary Care Provider] - See instructions Activity Restrictions/Add. Instructions Additional Instructions/Restrictions: Drink plenty of fluids. Take tylenol or ibuprofen for pain or fever. Take the medications as directed. Follow up with your regular doctor. GO TO THE ER FOR ANY WORSENING SYMPTOMS Clinical Impressions Clinical Impression: Pharyngitis, Acute viral syndrome Instructions Patient Instructions: Sore Throat, DI for Pharyngitis/Tonsillopharyngitis -- Adult, DI for Viral Syndrome Discharge ED Provider: Willis Bai [facility] General Stated complaint: sore throat, cough, headache Time Seen by Provider: 07/16/23 18:42 History of Present Illness Provider Complaint: He states that for the past 1 day he has had body aches, chills, fever and malaise. Related Data Home Medications Medication Instructions Recorded Confirmed cetirizine 10 mg capsule 10 mg PO DAILY Allergy symptoms 08/16/17 06/25/23 bisoprolol 2.5 2.5 mg PO DAILY BLOOD PRESSURE #90 01/10/19 06/25/23 mg-hydrochlorothiazide 6.25 mg tabs tablet norgestimate-ethinyl estradiol 1 tab PO DAILY control 06/30/20 06/25/23 0.18 mg/0.215mg/0.25mg-35 mcg(28)tablet Previous Rx's Medication Instructions Recorded vilazodone 40 mg tablet 40 mg PO DAILY Depression #30 tabs 05/12/23 diclofenac sodium 75 mg 75 mg PO BID Pain #60 tabs 06/25/23 tablet,delayed release gabapentin 300 mg capsule 300 mg PO DAILY Pain 90 days #30 06/25/23 caps clonazepam 0.5 mg tablet (Klonopin) 0.5 mg PO HS PRN anxiety #30 tabs 07/12/23 azithromycin 250 mg tablet 250 mg PO UD DOSE PK #6 tabs 07/16/23 (Zithromax) benzonatate 100 mg capsule 100 mg PO TIDP PRN Cough #30 caps 07/16/23 prednisone 20 mg tablet 20 mg PO BID 3 days #6 tabs 07/16/23 Allergies Allergy/AdvReac Type Severity Reaction Status Date / Time No Known Allergies Allergy Verified 07/16/23 18:58 [facility] Disclaimer: The information contained in this section may have been updated after the patient was seen, as this information can be updated by other users. Medical History Major depressive disorder Panic disorder Social History Smoking Status: Unknown if ever smoked second hand exposure: No alcohol intake: never substance use type: denies use current occupational status: employed Travel in the last 8 weeks: None household members: spouse and children housing: house number of children: 3 current occupational exposures/hazards: No caffeine: Yes ROS Obtained: Yes All systems reviewed & no additional complaints except as documented Constitutional Constitutional: Reports chills and Reports fever(s) Eyes Eyes: Denies eye discharge ENT Ears, Nose, Mouth, and Throat: Reports as per HPI Card
[2023-07-16 19:20] LABS: UTC Influenza A Antigen Negative (Negative); UTC Influenza B Antigen Negative (Negative)
[2023-07-16 19:49] VITALS: BP 187/70; PULSE 74; RESP 18; TEMP 37.2; O2SAT 96
== END 2023-07-16 19:49 | disposition home or self-care (01) ==
PROVIDERS: Emergency Provider Nurse Practitioner Family; PCP Nurse Practitioner Family
DX: J02.9 Acute pharyngitis, unspecified (principal); R51.9 Headache, unspecified; R50.9 Fever, unspecified; R05.9 Cough, unspecified; R53.81 Other malaise; B34.9 Viral infection, unspecified
CPT/HCPCS: 87635; 87804; 99212; 99214; G0463

== ENCOUNTER 2023-10-06 08:20 | Outpatient (POV) | payer OTHER, SELFPAY ==
[2023-10-06 08:54] VITALS: BP 133/84; PULSE 81; RESP 18; O2SAT 94; BMI 35.4
--- NOTE | 2023-10-06 09:14 | EXP.PAIN.SOA ---
[facility] Pain Management SOAP Note Subjective:: Patient is a pleasant 43-year-old female who presents today for 3-month follow-up and medication refill. 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 Today she rates her pain a 3 out of 10. Patient denies any new trauma or injury from her last visit. Patient does state that she did have a period where she was off her diclofenac for a few days and did notice significant difference with it. Patient states that she does really feel like the diclofenac makes a significant difference in her overall pain issues. Patient is currently managed with gabapentin 300 mg daily, diclofenac 75 mg twice a day. She denies any side effects from this medication. Her Kenny has been reviewed and is appropriate. Review of Systems: General: No recent weight changes, no fever, no sleep disturbances Respiratory: No cough, no shortness of air, no recurring pulmonary infections Cardiovascular/peripheral vascular: No chest pain, no palpitations, no edema, no shortness of breath Gastrointestinal: No new onset incontinence, normal bowel movements reported Genitourinary: No new onset incontinence Musculoskeletal: Low back pain Psychiatric: [Normal mood/affect] Neurological: [Denies weakness in extremities], [denies balance issues] Objective:: Physical Exam: General: Alert and oriented x3, no acute distress, pleasant and cooperative Lungs: Respirations even and unlabored, symmetrical chest expansion Eyes: PERRL Musculoskeletal: Flexion and extension of lumbar [spine] somewhat guarded secondary to pain, [antalgic gait noted] Neurological: Speech clear, no gross sensory deficit Assessment:: Degenerative disc disease of lumbar spine with lumbar radiculopathy symptoms Plan:: I will refill the patient's diclofenac 75 mg twice a day and gabapentin 300 mg daily and provide a 3-month supply of this medication. Patient will return to clinic in 3 months for reevaluation of symptoms and plan of care. Patient has been instructed to contact the clinic with any concerns before the next appointment. Dr. Argueta has reviewed this note and agrees with this plan of care. This note was dictated using voice recognition software and make contain errors or omissions. [facility] Disclaimer: The information contained in this section may have been updated after the patient was seen, as this information can be updated by other users. Medical History Major depressive disorder Panic disorder Social History Smoking Status: Unknown if ever smoked second hand exposure: No alcohol intake: never substance use type: denies use current occupational status: employed Travel in the last 8 weeks: None household members: spouse and children housing: house number of children: 3 current occupational exposures/hazards: No caffeine: Yes
== END 2023-10-06 23:59 | disposition home or self-care (01) ==
PROVIDERS: PCP Nurse Practitioner Family; Visit Provider Nurse Practitioner Family
DX: M51.16 Intervertebral disc disorders with radiculopathy, lumbar region (principal)
CPT/HCPCS: 99212; G0463

== ENCOUNTER 2024-01-03 08:25 | Outpatient (POV) | payer OTHER, SELFPAY ==
[2024-01-03 08:31] VITALS: BP 150/98; PULSE 69; RESP 16; O2SAT 97; BMI 34.4
--- NOTE | 2024-01-03 08:38 | EXP.PAIN.SOA ---
[facility] Pain Management SOAP Note Subjective:: Patient is a pleasant 43-year-old female who presents today for medication refill and follow-up. Today she rates her pain a 3 out of 10. Patient denies any new trauma or injury. She does state that she feels like she has still been experiencing a fog to where she sometimes cannot remember as well. Patient states that this is been going on really since 2019 where she ended up sick with COVID 3 different occasions. She stated that she is planning on talking to her primary care doctor regarding this but wanted to see whether or not if we had any thoughts on if her medication could be playing a role. Patient is currently managed with gabapentin 300 mg at bedtime and diclofenac 75 mg twice a day. She denies any side effects from this medication. Her Kenny has been reviewed and is appropriate. Review of Systems: General: No recent weight changes, no fever, no sleep disturbances Respiratory: No cough, no shortness of air, no recurring pulmonary infections Cardiovascular/peripheral vascular: No chest pain, no palpitations, no edema, no shortness of breath Gastrointestinal: No new onset incontinence, normal bowel movements reported Genitourinary: No new onset incontinence Musculoskeletal: Low back pain Psychiatric: [Normal mood/affect] Neurological: [Denies weakness in extremities], [denies balance issues] Objective:: Physical Exam: General: Alert and oriented x3, no acute distress, pleasant and cooperative Lungs: Respirations even and unlabored, symmetrical chest expansion Eyes: PERRL Musculoskeletal: Flexion and extension of lumbar [spine] somewhat guarded secondary to pain, [antalgic gait noted] Neurological: Speech clear, no gross sensory deficit Assessment:: Degenerative disc disease of lumbar spine with lumbar radiculopathy. Plan:: I have discussed with patient that gabapentin can sometimes cause fog like sensations or drowsiness. We did discuss at length and the patient feels like it is related to her COVID illness and that it coincided at the same time. I have discussed with patient to discuss with her primary care doctor and that in future we can always decrease her gabapentin and see if those symptoms get any better. Patient acknowledges understanding. We will follow-up with the patient in 3 months. Patient will be sent in prescriptions of gabapentin and diclofenac with a 3-month supply. Patient has been instructed to contact the clinic with any concerns before the next appointment. Dr. Argueta has reviewed this note and agrees with this plan of care. This note was dictated using voice recognition software and make contain errors or omissions. [facility] Disclaimer: The information contained in this section may have been updated after the patient was seen, as this information can be updated by other users. Medical History Major depressive disorder Panic disorder Social History Smoking Status: Unknown if ever smoked second hand exposure: No alcohol intake: never substance use type: denies use current occupational status: other Travel in the last 8 weeks: None household members: spouse and children housing: house number of children: 3 current occupational exposures/hazards: No caffeine: Yes
== END 2024-01-03 23:59 | disposition home or self-care (01) ==
PROVIDERS: PCP Nurse Practitioner; Visit Provider Nurse Practitioner Family
DX: M51.16 Intervertebral disc disorders with radiculopathy, lumbar region (principal)
CPT/HCPCS: 99212; G0463

== ENCOUNTER 2024-04-03 08:38 | Outpatient (POV) | payer OTHER, SELFPAY ==
[2024-04-03 08:51] VITALS: BP 118/73; PULSE 61; RESP 18; O2SAT 94; BMI 34.4
--- NOTE | 2024-04-03 09:15 | EXP.PAIN.SOA ---
[facility] Disclaimer: The information contained in this section may have been updated after the patient was seen, as this information can be updated by other users. Medical History Major depressive disorder Panic disorder Social History Smoking Status: Unknown if ever smoked second hand exposure: No alcohol intake: never substance use type: denies use current occupational status: employed Travel in the last 8 weeks: None household members: spouse and children housing: house number of children: 3 current occupational exposures/hazards: No caffeine: Yes PM Subjective & Objective Subjective Subjective:: Patient is a pleasant 43-year-old female who presents today for 3-month follow-up. Today she rates her pain a 4 out of 10. She denies any new trauma or injury. Patient does state that she is doing well with her gabapentin 300 mg at bedtime and diclofenac 75 mg twice daily. She denies any side effects from this medication. Her Kenny has been reviewed and is appropriate. Review of Systems: General: No recent weight changes, no fever, no sleep disturbances Respiratory: No cough, no shortness of air, no recurring pulmonary infections Cardiovascular/peripheral vascular: No chest pain, no palpitations, no edema, no shortness of breath Gastrointestinal: No new onset incontinence, normal bowel movements reported Genitourinary: No new onset incontinence Musculoskeletal: Low back pain Psychiatric: [Normal mood/affect] Neurological: [Denies weakness in extremities], [denies balance issues] Pain at rest (0-10 scale): 4 Objective Objective:: Physical Exam: General: Alert and oriented x3, no acute distress, pleasant and cooperative Lungs: Respirations even and unlabored, symmetrical chest expansion Eyes: PERRL Musculoskeletal: Flexion and extension of lumbar [spine] somewhat guarded secondary to pain, [antalgic gait noted] Neurological: Speech clear, no gross sensory deficit Has patient had previous pain injection?: No Conservative treatment options previously tried: Prescription medications Length of treatment: Longer than 6 weeks Meds Home Medications and Allergies Home Medications ?Medication ?Instructions ?Recorded ?Confirmed ?Type cetirizine 10 mg capsule 10 mg PO DAILY Allergy symptoms 08/16/17 04/03/24 History bisoprolol 2.5 2.5 mg PO DAILY BLOOD PRESSURE #90 01/10/19 04/03/24 History mg-hydrochlorothiazide 6.25 mg tabs tablet norgestimate-ethinyl estradiol 1 tab PO DAILY control 06/30/20 04/03/24 History 0.18 mg/0.215mg/0.25mg-35 mcg(28)tablet prednisone 20 mg tablet 20 mg PO BID 3 days #6 tabs 07/16/23 04/03/24 Rx gabapentin 300 mg capsule 300 mg PO DAILY #14 caps 09/23/23 04/03/24 Rx diclofenac sodium 75 mg 75 mg PO BID Pain #60 tabs 01/03/24 04/03/24 Rx tablet,delayed release gabapentin 300 mg capsule 300 mg PO HS Pain 90 days #30 caps 01/03/24 04/03/24 Rx vilazodone 40 mg tablet 40 mg PO DAILY Depression #30 tabs 01/31/24 04/03/24 Rx clonazepam 0.5 mg tablet (Klonopin) 0.5 mg PO HS PRN anxiety #30 tabs 03/13/24 04/03/24 Rx New Prescriptions to Start Prescriptions: Allergies Allergy/AdvReac Type Severity Reaction Status Date / Time No Known Allergies Allergy Verified 01/31/24 09:35 Assessment and Plan *Assessment and plan (1) Lumbar radiculopathy: Status: Chronic Category: Medical Code(s): M54.16 - Radiculopathy, lumbar region (2) Neck pain: Status: Chronic Category: Medical Code(s): M54.2 - Cervicalgia (3) Cervical radiculopathy: Status: Chronic Category: Medical Code(s): M54.12 - Radiculopathy, cervical region Plan I will refill the patient's gabapentin and diclofenac and provide a 3-month supply of this medication. Patient will return to clinic in 3 months for reevaluation of symptoms and plan of care. Patient has been instructed to contact the clinic with any concerns before the next appointment. Dr. Argueta has reviewed this note and agrees with this plan of care. This note was dictated using voice recognition software and make contain errors or omissions. All injections are used with Lidocaine or Bupivacaine and Depo Medrol.
== END 2024-04-03 23:59 | disposition home or self-care (01) ==
PROVIDERS: PCP Nurse Practitioner; Visit Provider Nurse Practitioner Family
DX: M54.16 Radiculopathy, lumbar region (principal); M54.2 Cervicalgia; M54.12 Radiculopathy, cervical region; Z79.899 Other long term (current) drug therapy
CPT/HCPCS: 99212; G0463

== ENCOUNTER 2024-07-19 09:47 | Outpatient (POV) | payer OTHER, SELFPAY ==
--- NOTE | 2024-07-19 10:11 | A.OFFVIS_ITS ---
[facility] Disclaimer: The information contained in this section may have been updated after the patient was seen, as this information can be updated by other users. Medical History Major depressive disorder Panic disorder Social History Smoking Status: Unknown if ever smoked second hand exposure: No alcohol intake: never substance use type: denies use current occupational status: employed Travel in the last 8 weeks: None household members: spouse and children housing: house number of children: 3 current occupational exposures/hazards: No caffeine: Yes PM Subjective & Objective Subjective Subjective:: Patient is a pleasant 43-year-old female who presents today for medication refill and 3-month follow-up. Today she rates her pain a 2 out of 10. She denies any new changes or injuries from her last appointment. She is currently managed with gabapentin 300 mg at bedtime and diclofenac 75 mg twice a day. She does state that this combination seems to still be working well for her. Her Kenny has been reviewed and is appropriate. Review of Systems: General: No recent weight changes, no fever, no sleep disturbances Respiratory: No cough, no shortness of air, no recurring pulmonary infections Cardiovascular/peripheral vascular: No chest pain, no palpitations, no edema, no shortness of breath Gastrointestinal: No new onset incontinence, normal bowel movements reported Genitourinary: No new onset incontinence Musculoskeletal: Neck pain, low back pain Psychiatric: [Normal mood/affect] Neurological: [Denies weakness in extremities], [denies balance issues] Pain at rest (0-10 scale): 2 Objective Objective:: Physical Exam: General: Alert and oriented x3, no acute distress, pleasant and cooperative Lungs: Respirations even and unlabored, symmetrical chest expansion Eyes: PERRL Musculoskeletal: Flexion and extension of lumbar [spine] somewhat guarded secondary to pain Neurological: Speech clear, no gross sensory deficit Has patient had previous pain injection?: No Conservative treatment options previously tried: Home exercise plan Length of treatment: Longer than 12 weeks Meds Home Medications and Allergies Home Medications ?Medication ?Instructions ?Recorded ?Confirmed ?Type cetirizine 10 mg capsule 10 mg PO DAILY Allergy symptoms 08/16/17 04/03/24 History bisoprolol 2.5 2.5 mg PO DAILY BLOOD PRESSURE #90 01/10/19 04/03/24 History mg-hydrochlorothiazide 6.25 mg tabs tablet norgestimate-ethinyl estradiol 1 tab PO DAILY control 06/30/20 04/03/24 History 0.18 mg/0.215mg/0.25mg-35 mcg(28)tablet prednisone 20 mg tablet 20 mg PO BID 3 days #6 tabs 07/16/23 04/03/24 Rx gabapentin 300 mg capsule 300 mg PO DAILY #14 caps 09/23/23 04/03/24 Rx diclofenac sodium 75 mg 75 mg PO BID Pain #60 tabs 04/03/24 Rx tablet,delayed release gabapentin 300 mg capsule 300 mg PO HS Pain 90 days #30 caps 04/03/24 Rx vilazodone 40 mg tablet 40 mg PO DAILY Depression #30 tabs 07/12/24 Rx clonazepam 0.5 mg tablet (Klonopin) 0.5 mg PO HS PRN anxiety #30 tabs 07/17/24 Rx New Prescriptions to Start Prescriptions: Allergies Allergy/AdvReac Type Severity Reaction Status Date / Time No Known Allergies Allergy Verified 05/12/24 10:11 Assessment and Plan *Assessment and plan (1) Lumbar radiculopathy: Status: Chronic Category: Medical Code(s): M54.16 - Radiculopathy, lumbar region (2) Neck pain: Status: Chronic Category: Medical Code(s): M54.2 - Cervicalgia (3) Cervical radiculopathy: Status: Chronic Category: Medical Code(s): M54.12 - Radiculopathy, cervical region (4) Low back pain: Status: Chronic Category: Medical Code(s): M54.5 - Low back pain Plan I will send in a 3-month supply of her medications and have her return back in another 3 months for reevaluation of symptoms and plan of care. Patient has been instructed to contact the clinic with any concerns before the next appointment. Dr. Argueta has reviewed this note and agrees with this plan of care. This note was dictated using voice recognition software and make contain errors or omissions. All injections are used with Lidocaine or Bupivacaine and Depo Medrol.
[2024-07-19 10:21] VITALS: BP 125/88; PULSE 66; RESP 16; O2SAT 98; BMI 36.9
== END 2024-07-19 23:59 | disposition home or self-care (01) ==
PROVIDERS: PCP Nurse Practitioner; Visit Provider Nurse Practitioner Family
DX: M54.16 Radiculopathy, lumbar region (principal); M54.2 Cervicalgia; M54.12 Radiculopathy, cervical region; M54.50 Low back pain, unspecified
CPT/HCPCS: 99212; G0463

== ENCOUNTER 2024-08-23 17:22 | Emergency (ER) | payer OTHER, SELFPAY ==
[2024-08-23 17:30] VITALS: BP 133/57; PULSE 66; RESP 18; TEMP 36.8; O2SAT 97; BMI 35.4
--- NOTE | 2024-08-23 17:58 | EXP.UTC ---
Discharge Plan Disposition Patient Disposition: Home, Self-Care Condition: Good Prescriptions Prescriptions: New methylprednisolone [Medrol (Pj)] 4 mg tablets,dose pack See Rx Instructions .Route .COMPLEX 6 Days Qty: 21 0RF Rx Instructions: taper pack; amoxicillin-pot clavulanate 875-125 mg Tablet 1 tab PO Q12H Qty: 20 0RF No Action clonazepam 0.5 mg tablet 0.5 mg PO HS Patient Comments: TAKE 1 TABLET BY MOUTH AT BEDTIME NIGHTLY NEEDED FOR ANXIETY bisoprolol-hydrochlorothiazide 2.5-6.25 mg tablet 1 tab PO DAILY gabapentin 300 mg capsule 300 mg PO DAILY diclofenac sodium 75 mg tablet,delayed release (DR/EC) 75 mg PO DAILY vilazodone 40 mg tablet 40 mg PO DAILY Patient Comments: TAKE 1 TABLET BY MOUTH ONCE DAILY WITH FOOD FOR DEPRESSION Linzess 290 mcg capsule 290 mcg PO DAILY Patient Comments: TAKE 1 CAPSULE BY MOUTH ONCE DAILY AT LEAST 30MIN BEFORE THE FIRST MEAL OF THE DAY ON AN EMPTY STOMACH Referrals Follow up/Referrals: Leatha Bermudez APRN [Primary Care Provider] - See instructions Activity Restrictions/Add. Instructions Additional Instructions/Restrictions: *Monitor Temp, Over the counter Motrin or Tylenol as directed/as needed Tylenol every 4 hours and Motrin every 6 hours (as long as your family doctor has told you that you can take it) for fever or pain. and straight to ER if unable to lower temp less than 101.0 after medication given *Take medication as prescribed *Sleep elevated *Humidifier/Vaporizer Follow up IMMEDIATELY for new or worsening symptoms or no Noticeable improvement over the next 48-72 hours. 911 for difficulty breathing or swallowing Clinical Impressions Clinical Impression: Sinusitis Instructions Patient Instructions: DI for Sinusitis, Sinusitis Print Language Print Language: Amharic Discharge ED Provider: Tiny Steen [facility] [place] HPI General Stated complaint: ear ache, head yaa Mode of Arrival: Ambulatory Source of Information: Patient Limitations: No Limitations Time Seen by Provider: 08/23/24 17:58 Description of Symptoms (Recalled from Triage Doc. by RN): PATIENT C/O SINUS CONGESTION AND RIGHT EAR PAIN X 1 WEEK AND LEFT EAR PAIN THAT STARTED TODAY HEENT Symptoms (Recalled from RN notes): Yes Resp Symptoms (Recalled from RN notes): No Skin Symptoms (Recalled from RN notes): No MS Symptoms (Recalled from RN notes): No Functional Status (Recalled from RN notes): WNL History of Present Illness Provider Complaint: Patient states that she has been having sinus pain and pressure along with pain in her right ear for over a week and left ear started bothering her now States today it seemed like the pressure was getting worse so she came in to get checked Related Data Home Medications ?Medication ?Instructions ?Recorded ?Confirmed bisoprolol 2.5 1 tab PO DAILY 08/23/24 08/23/24 mg-hydrochlorothiazide 6.25 mg tablet clonazepam 0.5 mg tablet 0.5 mg PO HS 08/23/24 08/23/24 diclofenac sodium 75 mg 75 mg PO DAILY 08/23/24 08/23/24 tablet,delayed release gabapentin 300 mg capsule 300 mg PO DAILY 08/23/24 08/23/24 linaclotide 290 mcg capsule 290 mcg PO DAILY 08/23/24 08/23/24 (Linzess) vilazodone 40 mg tablet 40 mg PO DAILY 08/23/24 08/23/24 Previous Rx's ?Medication ?Instructions ?Recorded amoxicillin 875 mg-potassium 1 tab PO Q12H #20 tabs 08/23/24 clavulanate 125 mg tablet methylprednisolone 4 mg tablets in See Rx Instructions .Route 08/23/24 a dose pack (Medrol (Pj)) .COMPLEX 6 days #21 tabs Allergies Allergy/AdvReac Type Severity Reaction Status Date / Time No Known Allergies Allergy Verified 08/01/24 14:19 Worker's Comp Is this a Worker's Comp case?: No [facility] Disclaimer: The information contained in this section may have been updated after the patient was seen, as this information can be updated by other users. Medical History (Updated 08/23/24 @ 18:03 by Tiny Steen APRN) Cervical radiculopathy Major depressive disorder Panic disorder Surgical History (Updated 08/01/24 @ 14:34 by BRENDA Choudhary) H/O nasal septoplasty Social History Smoking Status: Current every day smoker tobacco type: cigarettes packs per day: 1 second hand exposure: No alcohol intake: never substance use type: denies use current occupational status: other Travel in the last 8 weeks: None household members: spouse and children housing: house number of children: 3 current occupational exposures/hazards: No caffeine: Yes Have you lived/traveled outside [place] in past 30 days?: No Contact w/someone who lives/traveled outside US past 30 days?: No Exposure to someone with infectious disease in past 14 days?: No Do you have a fever (greater than 100.4 F or 38 C)?: No Have you tested positive for COVID-19: No Exposed to someone with COVID-19 in past 14 days?: No Do you have a sore throat?: No Do you have a cough?: No Do you have any weakness?: No Do you have any diarrhea?: No Are you experiencing any unusual bleeding?: No Do you have any muscle aches/pain?: No Do you have any abdominal pain?: No Are you experiencing loss of taste or smell?: No ROS Obtained: Yes All systems reviewed & no additional complaints except as documented and Yes Systems reviewed as appropriate & no additional complaints except as documented Constitutional Constitutional: Reports system reviewed and no additional complaints, except as documented and Reports as per HPI ENT Ears, Nose, Mouth, and Throat: Reports system reviewed and no additional complaints, except as documented, Reports as per HPI, Reports otalgia, Reports sinus pain and Reports sinus pressure Cardiovascular Cardiovascular: Reports system reviewed and no additional complaints, except as documented and Reports as per HPI Respiratory Respiratory: Reports system reviewed and no additional complaints, except as documented and Reports as per HPI Gastrointestinal Gastrointestingal: Reports system reviewed and no additional complaints, except as documented and as per HPI Physical Exam General General appearance: alert and in no apparent distress ENT ENT exam: Present mucous membranes moist Expanded ENT Exam TM/Canal exam: Right TM: erythema and bulging Throat exam: Present normal inspection Respiratory Respiratory exam: Present normal lung sounds bilaterally; Absent respiratory distress or wheezes Cardiovascular Cardiovascular exam: Present regular rate, normal rhythm and normal heart sounds Abdominal Exam Abdominal exam: Present soft and normal bowel sounds; Absent distention or tenderness Neurological Exam Neurological exam: Present alert, oriented X3 and normal gait Medical Decision Making Medical Records Screening: Per USPSTF and CDC recommendations, given the prevalence of disease in our region, it is our hospital?s policy to screen for HIV and viral Hepatitis for all patients aged 18 and over and those with ongoing risk factors. Kenny Inquiry Pt receiving controlled substance: No Kenny was queried for this patient: No Vital Signs: 08/23/24 17:30 Temperature 98.2 F Temperature Source Oral Pulse Rate [Left Brachial] 66 Respiratory Rate 18 Blood Pressure [Left Arm] 133/57 L Blood Pressure Mean [Left Arm] 82 Blood Pressure Source [Left Arm] Automatic Cuff Blood Pressure Position [Left Arm] Sitting 02 Sat by Pulse Oximetry 97 Oxygen Delivery Method Room Air
[2024-08-23 18:06] VITALS: BP 133/57; PULSE 66; RESP 18; TEMP 36.8; O2SAT 97
== END 2024-08-23 18:10 | disposition home or self-care (01) ==
PROVIDERS: Emergency Provider Nurse Practitioner; PCP Nurse Practitioner
DX: J01.90 Acute sinusitis, unspecified (principal)
CPT/HCPCS: 99213; G0381

== ENCOUNTER 2024-10-16 08:27 | Outpatient (POV) | payer OTHER, SELFPAY ==
[2024-10-16 08:48] VITALS: BP 109/61; PULSE 67; RESP 18; O2SAT 96; BMI 32.5
--- NOTE | 2024-10-16 09:07 | EXP.PAIN.SOA ---
[facility] Disclaimer: The information contained in this section may have been updated after the patient was seen, as this information can be updated by other users. Medical History Cervical radiculopathy Major depressive disorder Panic disorder Surgical History H/O nasal septoplasty Family History (Updated 10/16/24 @ 08:54 by Daniela Mckeon RN) Other Unknown family medical history Social History Smoking Status: Current every day smoker tobacco type: cigarettes packs per day: 1 second hand exposure: No alcohol intake: never substance use type: denies use current occupational status: employed Travel in the last 8 weeks: None household members: spouse and children housing: house number of children: 3 current occupational exposures/hazards: No caffeine: Yes PM Subjective & Objective Subjective Subjective:: Patient is a pleasant 44-year-old female who presents today for a 3-month follow-up and medication refill. Today she rates her pain a 0 out of 10. She states overall she is doing really well with her current medication. Patient is currently managed with gabapentin 300 mg at bedtime and diclofenac 75 mg twice daily. She denies any side effects. Her Kenny has been reviewed and is appropriate. Review of Systems: General: No recent weight changes, no fever, no sleep disturbances Respiratory: No cough, no shortness of air, no recurring pulmonary infections Cardiovascular/peripheral vascular: No chest pain, no palpitations, no edema, no shortness of breath Gastrointestinal: No new onset incontinence, normal bowel movements reported Genitourinary: No new onset incontinence Musculoskeletal: Low back pain Psychiatric: [Normal mood/affect] Neurological: [Denies weakness in extremities], [denies balance issues] Pain at rest (0-10 scale): 0 Objective Objective:: Physical Exam: General: Alert and oriented x3, no acute distress, pleasant and cooperative Lungs: Respirations even and unlabored, symmetrical chest expansion Eyes: PERRL Musculoskeletal: Flexion and extension of lumbar [spine] within normal limits Neurological: Speech clear, no gross sensory deficit Has patient had previous pain injection?: No Conservative treatment options previously tried: Prescription medications Length of treatment: Longer than 12 weeks Meds Home Medications and Allergies Home Medications ?Medication ?Instructions ?Recorded ?Confirmed ?Type bisoprolol 2.5 1 tab PO DAILY 08/23/24 10/11/24 History mg-hydrochlorothiazide 6.25 mg tablet linaclotide 290 mcg capsule 290 mcg PO DAILY 08/23/24 10/11/24 History (Linzess) clonazepam 0.5 mg tablet 0.5 mg PO HS #30 tabs 09/21/24 10/11/24 Rx vilazodone 40 mg tablet 40 mg PO DAILY #30 tabs 09/21/24 10/11/24 Rx diclofenac sodium 75 mg 75 mg PO BID #60 tabs 10/16/24 Rx tablet,delayed release gabapentin 300 mg capsule 300 mg PO DAILY #30 caps 10/16/24 Rx New Prescriptions to Start Prescriptions: diclofenac sodium Ornelas,Sasha A gabapentin Ornelas,Sasha A Allergies Allergy/AdvReac Type Severity Reaction Status Date / Time No Known Allergies Allergy Verified 10/11/24 08:19 Assessment and Plan *Assessment and plan (1) Lumbar radiculopathy: Status: Chronic Category: Medical Code(s): M54.16 - Radiculopathy, lumbar region (2) Low back pain: Status: Chronic Category: Medical Code(s): M54.50 - Low back pain, unspecified Plan I will refill her gabapentin and diclofenac and provide a 3-month supply of this medication. Patient will return to clinic in 3 months. Patient has been instructed to contact the clinic with any concerns before the next appointment. Dr. Argueta has reviewed this note and agrees with this plan of care. This note was dictated using voice recognition software and make contain errors or omissions. All injections are used with Lidocaine, Bupivacaine and Depo Medrol. Occasionally urine drug screen is needed to verify patient's compliance with our office pain contract. This is ordered based off specific treatments related to chronic pain with the potential to abuse certain medications.
== END 2024-10-16 23:59 | disposition home or self-care (01) ==
PROVIDERS: PCP Family Medicine; Visit Provider Nurse Practitioner Family
DX: M54.16 Radiculopathy, lumbar region (principal); M54.50 Low back pain, unspecified; F17.210 Nicotine dependence, cigarettes, uncomplicated
CPT/HCPCS: 99212; G0463

== ENCOUNTER 2024-10-28 10:06 | Outpatient (CLI) | payer OTHER, SELFPAY ==
[2024-10-28 10:26] LABS: Basophils % 0.6 % (0.1-2.0); Eosinophils # 0.2 K/mm3 (0.0-0.4); Eosinophils % 3.6 % (0.1-12.0); Hemoglobin 13.1 g/dL (12.2-16.2); Lymphocytes # 2.5 K/mm3 (0.7-4.5); Lymphocytes % 37.1 % (10-50); Mean Corpuscular Hemoglobin 28.3 pg (27.0-31.2); Mean Corpuscular Volume 88.6 fl (81-99); Mean Platelet Volume 9.5 fl (7.4-10.4); Monocytes # 0.5 K/mm3 (0.1-1.0); Monocytes % 7.2 % (1.7-9.3); Neutrophils # 3.4 K/mm3 (1.8-7.8); Neutrophils % 51.4 % (37.0-80.0); Platelet Count 333 K/mm3 (142-424); Red Blood Count 4.63 M/mm3 (4.20-5.40); Red Cell Distribution Width 14.1 % (11.5-17.5); White Blood Count 6.7 K/mm3 (4.8-10.8)
[2024-10-28 11:11] LABS: Alanine Aminotransferase 46 U/L (12-78); Albumin Level 4.3 g/dl (3.5-5.0); Albumin/Globulin Ratio 1.8 (1.1-1.8); Alkaline Phosphatase 76 U/L (38-126); Aspartate Amino Transferase 37 U/L (14-36); Bilirubin,Total 0.5 mg/dl (0.2-1.3); Blood Urea Nitrogen 12 mg/dl (7-17); Carbon Dioxide 24 mmol/L (22.0-30.0); Chloride 112 mmol/L (98-107); Estimated Glomerular Filt Rate 78 ml/min (>60); GFR (African American) 94 ML/MIN (>60); Globulin 2.4 g/dL (1.3-3.2); Glucose 104 mg/dl (74-100); Sodium 142 mmol/L (136-145); Total Protein,Serum 6.7 g/dl (6.3-8.2)
[2024-11-07 22:13] LABS: Testosterone, Total, LC/MS 19 ng/dL (.)
== END 2024-10-28 23:59 | disposition home or self-care (01) ==
LOC: LAB 10:07
PROVIDERS: PCP Nurse Practitioner; Visit Provider Obstetrics & Gynecology
DX: L68.0 Hirsutism (principal); L67.8 Other hair color and hair shaft abnormalities
CPT/HCPCS: 36415; 80053; 84403; 85025

== ENCOUNTER 2024-12-06 18:13 | Outpatient (CLI) | payer OTHER, SELFPAY ==
--- NOTE | 2024-12-06 18:20 | XR_ITS ---
PROCEDURE INFORMATION: Exam: XR Chest Exam date and time: 12/06/2024 6:11 PM Age: 44 years old Clinical indication: Cough TECHNIQUE: Imaging protocol: Radiologic exam of the chest. Views: 2 views. COMPARISON: CR CXR2V XR chest 2V 07/18/2018 7:20 PM FINDINGS: Lungs: Unremarkable. No consolidation. Pleural spaces: Unremarkable. No pleural effusion. No pneumothorax. Heart/Mediastinum: Unremarkable. No cardiomegaly. Bones/joints: Unremarkable. IMPRESSION: No acute findings.
== END 2024-12-06 23:59 | disposition home or self-care (01) ==
LOC: RAD 18:16
PROVIDERS: PCP Nurse Practitioner; Visit Provider Student in an Organized Health Care Education/Training Program
DX: R05.9 Cough, unspecified (principal)
CPT/HCPCS: 71046

== ENCOUNTER 2025-01-17 08:30 | Outpatient (POV) | payer OTHER, SELFPAY ==
--- NOTE | 2025-01-17 08:40 | EXP.PAIN.SOA ---
[facility] Disclaimer: The information contained in this section may have been updated after the patient was seen, as this information can be updated by other users. Medical History Cervical radiculopathy Major depressive disorder Panic disorder Surgical History H/O nasal septoplasty Family History Other Unknown family medical history Social History Smoking Status: Current every day smoker tobacco type: cigarettes packs per day: 1 second hand exposure: No alcohol intake: never substance use type: denies use current occupational status: employed Travel in the last 8 weeks?: None household members: spouse and children housing: house number of children: 3 current occupational exposures/hazards: No caffeine: Yes Have you lived/traveled outside US in past 30 days?: No Contact w/someone who lives/traveled outside US past 30 days?: No Exposure to someone with infectious disease in past 14 days?: No Do you have a fever (greater than 100.4 F or 38 C)?: No Have you tested positive for COVID-19?: No Exposed to someone with COVID-19 in past 14 days?: No Do you have a sore throat?: No Do you have a cough?: No Do you have any weakness?: No Do you have any diarrhea?: No Are you experiencing any unusual bleeding?: No Do you have any muscle aches/pain?: No Do you have any abdominal pain?: No Are you experiencing loss of taste or smell?: No PM Subjective & Objective Subjective Subjective:: Patient is a pleasant 44-year-old female who presents today for medication refill and 3-month follow-up. Today she rates her pain a 2 out of 10. She denies any changes from our last appointment. She states she is still doing good with her medications. She is prescribed gabapentin 300 mg at bedtime and diclofenac 75 mg twice a day. She denies any side effects or changes to her pharmacy. Her Kenny has been reviewed and is appropriate. Review of Systems: General: No recent weight changes, no fever, no sleep disturbances Respiratory: No cough, no shortness of air, no recurring pulmonary infections Cardiovascular/peripheral vascular: No chest pain, no palpitations, no edema, no shortness of breath Gastrointestinal: No new onset incontinence, normal bowel movements reported Genitourinary: No new onset incontinence Musculoskeletal: Low back pain Psychiatric: [Normal mood/affect] Neurological: [Denies weakness in extremities], [denies balance issues] Pain at rest (0-10 scale): 2 Objective Objective:: Physical Exam: General: Alert and oriented x3, no acute distress, pleasant and cooperative Lungs: Respirations even and unlabored, symmetrical chest expansion Eyes: PERRL Musculoskeletal: Flexion and extension of lumbar [spine] within normal limits Neurological: Speech clear, no gross sensory deficit Has patient had previous pain injection?: No Conservative treatment options previously tried: Prescription medications Length of treatment: Longer than 12 weeks Meds Home Medications and Allergies Home Medications ?Medication ?Instructions ?Recorded ?Confirmed ?Type bisoprolol 2.5 1 tab PO DAILY 08/23/24 12/20/24 History mg-hydrochlorothiazide 6.25 mg tablet linaclotide 290 mcg capsule 290 mcg PO DAILY 08/23/24 12/20/24 History (Linzess) diclofenac sodium 75 mg 75 mg PO BID #60 tabs 10/16/24 12/20/24 Rx tablet,delayed release gabapentin 300 mg capsule 300 mg PO DAILY #30 caps 10/16/24 12/20/24 Rx albuterol sulfate 90 mcg/actuation 1 inh inhalation QID PRN shortness 12/06/24 12/20/24 Rx aerosol inhaler of breath or wheezing #6.7 grams azithromycin 250 mg tablet See Rx Instructions PO .COMPLEX #6 12/06/24 12/20/24 Rx (Zithromax Z-Pj) tabs clonazepam 0.5 mg tablet 0.5 mg PO HS #30 tabs 12/20/24 12/20/24 Rx vilazodone 40 mg tablet 40 mg PO DAILY #30 tabs 12/20/24 12/20/24 Rx New Prescriptions to Start Prescriptions: Allergies Allergy/AdvReac Type Severity Reaction Status Date / Time No Known Allergies Allergy Verified 12/20/24 08:45 Assessment and Plan *Assessment and plan (1) Low back pain: Status: Chronic Category: Medical Code(s): M54.50 - Low back pain, unspecified Plan I will send in a 3-month supply of her diclofenac and gabapentin. Patient will return clinic in 3 months for reevaluation of symptoms and plan of care. Patient has been instructed to contact the clinic with any concerns before the next appointment. Dr. Argueta has reviewed this note and agrees with this plan of care. This note was dictated using voice recognition software and make contain errors or omissions. All injections are used with Lidocaine, Bupivacaine and dexamethasone. Occasionally urine drug screen is needed to verify patient's compliance with our office pain contract. This is ordered based off specific treatments related to chronic pain with the potential to abuse certain medications.
[2025-01-17 09:46] VITALS: BP 117/72; PULSE 65; RESP 18; O2SAT 95; BMI 32.3
== END 2025-01-17 23:59 | disposition home or self-care (01) ==
PROVIDERS: PCP Nurse Practitioner; Visit Provider Nurse Practitioner Family
DX: M54.50 Low back pain, unspecified (principal); G89.29 Other chronic pain; Z79.899 Other long term (current) drug therapy; Z79.1 Long term (current) use of non-steroidal anti-inflammatories (NSAID)
CPT/HCPCS: 99212; G0463

== ENCOUNTER 2025-07-10 14:03 | Inpatient (IN) | payer BC, SELFPAY ==
[2025-07-10 14:31] VITALS: BP 109/78; PULSE 104; RESP 16; TEMP 37.2; O2SAT 100; BMI 30.9
--- NOTE | 2025-07-10 14:52 | ED_ITS ---
<Statement entered by Lizzy Hicks MD - 07/14/25 08:52> I was consulted by the BRETT, and we discussed the complexity of the problems being addressed. I approved the treatment and management plan for this patient's care in the emergency department, thus performing a substantive portion of the medical decision making. Lizzy Hicks MD, CARY, FACEP Discharge Plan Disposition Patient Disposition: Admitted Condition: Fair Clinical Impressions Clinical Impression: Acute diverticulitis Discharge ED Provider: Swapnil Wilkins General Adult HPI <NIKI Yu - Last Filed: 07/10/25 18:27> General Chief complaint: Abdominal Pain Stated complaint: abd pain, fever Time Seen by Provider: 07/10/25 14:52 Mode of Arrival: Ambulatory Source of Information: Patient Description of Symptoms (Recalled from ER Triage Doc. by RN): pt to the ED via POV for multiple complaints. pt complaints of upper abd. soreness x 4 days without nausea or vomiting. pt also reports she hasnt had a bowel movement in days. pt also stated she feels like she has had a subjective fever x 4 days. pt stated she doesnt have a thermometer but that she will feel hot all over all of the sudden then it goes away. History of Present Illness HPI narrative: 44-year-old female presents to the emergency department with abdominal pain constipation has been ongoing for the last 3 days, patient also notes subjective fever chills rigors last night, myalgias, no recorded temperature Tmax, patient denies any nausea, denies any chest pain shortness of breath cough congestion sore throat, denies any real vomiting, denies any diarrhea, denies any urinary type symptomatology, patient is a current smoker denies any alcohol or drug use, other past medical history is consistent with IBS-C, on Linzess, MDD/EDWIN, hypertension, asthma. Initial triage vitals noted for tachycardia otherwise unremarkable Please note that above description of symptoms, in this electronic medical record under categorization of recalled from ER triage doctor by RN are reflective of an initial nursing assessment, however, is not reflective of my full history and physical exam that was personally taken and clarified. Consequentially, this preceding description of symptoms, which may include the patient's categorized chief complaint in the EMR, do not reflect my personal clinical impression, and the ultimate description of history of present illness and patient stated complaints should be deferred to this section of the note. Unless stated otherwise or congruent with this section of the note, additional signs, symptoms, or incongruence should be interpreted as inaccurate with my clinical impression. Onset (ago): day(s) Related Data Home Medications ?Medication ?Instructions ?Recorded ?Confirmed bisoprolol 2.5 1 tab PO DAILY 08/23/2406/17 mg-hydrochlorothiazide 6.25 mg tablet linaclotide 290 mcg capsule 290 mcg PO DAILY 08/23/24 07/10/25 (Linzess) cetirizine 10 mg tablet (Zyrtec) 10 mg PO DAILY 07/10/25 gabapentin 300 mg capsule 300 mg PO HS 07/10/25 vilazodone 40 mg tablet 40 mg PO HS 07/10/25 5 Previous Rx's ?Medication ?Instructions ?Recorded albuterol sulfate 90 mcg/actuation 1 inh inhalation QI D PRN shortness 12/06/24 aerosol inhaler of breath or wheezing #6.7 g gisele diclofenac sodium 75 mg 75 mg PO BID #60 tabs tablet,delayed release dextromethorphan IR 45 1 tab PO BID #60 ea 06/13/25 mg-bupropion ER 105 mg biphasic tablet (Auvelity) clonazepam 0.5 mg tablet 0.5 mg PO HS #30 tabs amoxicillin 875 mg-potassium 1 tab PO BID #10 tabs clavulanate 125 mg tablet Allergies Allergy/AdvReac Type Severity Reaction Status Date / Time No Known Allergies Allergy Verified 07/10/25 13:40 [facility] <NIKI Yu - Last Filed: 07/10/25 18:27> [facility] Disclaimer: The information contained in this section may have been updated after the patient was seen, as this information can be updated by other users. Medical History Asthma Irritable bowel syndrome (IBS) Hypertension Major depressive disorder Panic disorder Cervical radiculopathy Surgical History History of colonoscopy H/O nasal septoplasty Family History Other Family history of cancer Family history of diabetes mellitus type II Family history of hyperlipidemia Family history of hypertension Social History Smoking Status: Current every day smoker tobacco type: cigarettes packs per day: 1 second hand exposure: No alcohol intake: never substance use type: denies use current occupational status: employed Travel in the last 8 weeks?: None household members: spouse and children housing: house number of children: 3 current occupational exposures/hazards: No caffeine: Yes Have you lived/traveled outside [place] in past 30 days?: No Contact w/someone who lives/traveled outside US past 30 days?: No Exposure to someone with infectious disease in past 14 days?: No Do you have a fever (greater than 100.4 F or 38 C)?: No Have you tested positive for COVID-19?: No Exposed to someone with COVID-19 in past 14 days?: No Do you have a sore throat?: No Do you have a cough?: No Do you have any weakness?: No Are you experiencing any nausea/vomitting?: No Do you have any diarrhea?: No Are you experiencing any unusual bleeding?: No Do you have any muscle aches/pain?: No Do you have any abdominal pain?: No Are you experiencing loss of taste or smell?: No Other Medical History Have you received the Flu Vaccine for this season: Yes Have you received the Pneumonia Vaccine: Yes <NIKI Yu - Last Filed: 07/10/25 18:27> ROS Obtained: Yes All systems reviewed & no additional complaints except as documented Physical Exam <NIKI Yu - Last Filed: 07/10/25 18:27> General General appearance: alert and in no apparent distress Head Head exam: atraumatic and normocephalic Eye Eye exam: Present PERRL and EOMI ENT ENT exam: Present mucous membranes moist Neck Neck exam: Present normal inspection Chest Chest inspection: Present normal inspection and symmetric chest wall rise Respiratory Respiratory exam: Present normal lung sounds bilaterally; Absent respiratory distress Cardiovascular Cardiovascular exam: Present regular rate and normal rhythm Abdominal Exam Abdominal exam: Present soft and tenderness; Absent guarding, rebound, rigidity or tenderness at McBurney's Point Abdominal tenderness: Present diffuse and mild Extremities Exam Extremities exam: Present normal inspection Neurological Exam Neurological exam: Present alert and oriented X3 Psychiatric Psychiatric exam: Present normal affect Skin Skin exam: Present warm and dry Medical Decision Making <NIKI Yu - Last Filed: 07/10/25 18:27> Medical Records Medical records reviewed: Yes I reviewed the patient's medical records. Screening: Per USPSTF and CDC recommendations, given the prevalence of disease in our region, it is our hospital?s policy to screen for HIV and viral Hepatitis for all patients aged 18 and over and those with ongoing risk factors. Kenny Inquiry Pt receiving controlled substance: No Vital Signs: 07/10/25 14:31 07/10/25 17:56 Temperature 98.9 F 98.4 F Temperature Source Oral Oral Pulse Rate 72 Pulse Rate [Left Radial] 104 H Respiratory Rate 16 16 Blood Pressure 135/72 Blood Pressure [Right Arm] 109/78 L Blood Pressure Mean [Right Arm] 88 Blood Pressure Source Automatic Cuff Blood Pressure Source [Right Arm] Automatic Cuff Blood Pressure Position Sitting Blood Pressure Position [Right Arm] Sitting 02 Sat by Pulse Oximetry 100 Oxygen Delivery Method Room Air Room Air Lab Data Lab results reviewed: Yes I reviewed the patient's lab results. Lab Results 07/10/25 14:45: WBC 13.6 H, RBC 4.47, Hgb 13.0, Hct 39.9, MCV 89.3, MCH 29.1, MCHC 32.6, RDW 13.2, Plt Count 287, MPV 9.8, Neut % (Auto) 78.7, Lymph % (Auto) 12.5, [place] % (Auto) 7.6, Eos % (Auto) 0.5, Baso % (Auto) 0.3, Neut # (Auto) 10.7 H, Lymph # (Auto) 1.7, [place] # (Auto) 1.0, Eos # (Auto) 0.1, Baso # (Auto) 0.0, S odium 134 L, Potassium 3.5, Chloride 101, Carbon Dioxide 27, Anion Gap 9.5, BUN 7, Creatinine 0.80, Estimated Creat Clear 139, Estimated GFR 78, Est GFR ( Amer) 94, Glucose 144 H, Calcium 9.3, Magnesium 2.3, Total Bilirubin 1.2, AST 33, ALT 35, Alkaline Phosphatase 77, Total Protein 7.8, Albumin 4.5, G lobulin 3.3 H, Albumin/Globulin Ratio 1.4, Lipase 24, Serum HCG, Qual Negative, Urine Color [place], Urine Appearance Clear, Urine pH 6.0, Ur Specific [place] 1.025, Urine Protein 1+ A, Urine Glucose (UA) Negative, Urine Ketones Trace, U rine Blood 1+ A, Urine Nitrate Negative, Urine Bilirubin Negative, Urine Urobilinogen 1.0, Ur Leukocyte Esterase Negative, Urine RBC 50-100, Urine WBC 5- 10, Ur Squamous Epith Cells 20-50, Urine Bacteria 4+, Urine Mucus 4+, HCV Ab JUS w/Rflx PCR Qn Negative, HIV Ag/Ab Combo Qual Negative 07/10/25 16:48: Lactate 1.1 07/10/25 16:50: A. baumannii (PCR) Not detected, Bacteroides fragilis Not detected, Karla albicans (PCR) Not detected, Karla auris (PCR) Not detected, C. glabrata (PCR) Not detected, C. krusei (PCR) Not detected, C. parapsilosis (PCR) Not detected, C. tropicalis (PCR) Not detected, Cryptococcus neoformans PCR Not detected, Enterobacterales (PCR) Not detected, Enterococc faecalis PCR Not detected, Enterococc faecium PCR Not detected, E. coli (PCR) Not detected, H. influenzae DNA Not detected, Klebsiella aerogenes (PCR) Not detected, Klebsiella oxytoca PCR Not detected, K. pneumoniae group (PCR) Not detected, List. monocytogenes PCR Not detected, N. meningitidis (PCR) Not detected, Proteus species (PCR) Not detected, Salmonella spp. (PCR) Not detected, Serratia marcescens PCR Not detected, Staphylococcus sp PCR Not detected, Staph aureus (PCR) Not detected, mecA/C & MREJ Resist Gene Not applicable, mecA/C-Methicil Resis Gene Not applicable, Staph epidermidis (PCR) Not detected, Staph lugdunensis (TEM-PCR) Not detected, S. maltophilia (PCR) Not detected, Streptococcus sp PCR Not detected, S.agalactiae Grp B CHELO Not detected, Strep pneumoniae (PCR) Not detected, S. pyogenes GrpA CHELO Not detected, P. aeruginosa (PCR) Not detected, Karly/B-Vanco Res Genes Not applicable, blaIMP Car res Gene PCR Not applicable, KPC-Carbap Res Gene PCR Not applicable, blaNDM Car Res Gene PCR Not applicable, OXA-48 Carbapenem Resis Gene (PCR) Not applicable, blaVIM Car Res Gene PCR Not applicable, CTX-M Gene Resistance (PCR) Not applicable, MCR-1 Resistance Gene Not applicable 07/12/25 05:19 07/12/25 05:19 Orders (Tests/Meds): ED MEDICATIONS Discontinued Medications Generic Name Dose Route Start Last Admin Trade Name Freq PRN Reason Stop Dose Admin Acetaminophen 650 mg 07/10/25 16:52 Acetaminophen 325mg Tab PO 08/09/25 16:51 Q4HP PRN Fever or Mild Pain (1-3) Acetaminophen 1,000 mg 07/10/25 16:54 07/10/25 17:08 Acetaminophen 1,000mg/100ml Vial IV 07/10/25 16:55 1,000 mg ONCE ONE Administration Hydrocodone Bitart/Acetaminophen 1 tab 07/10/25 16:52 07/11/25 01:31 Hydrocodone/Apap 5/325 Mg Tablet PO 08/09/25 16:51 1 tab Q4HP PRN Administration Mild to Moderate Pain (1-6) Bisacodyl 10 mg 07/11/25 07:13 07/11/25 08:33 Bisacodyl 10mg Supp RC 07/11/25 07:14 10 mg ONCE ONE Administration Bisoprolol Fumarate 2.5 mg 07/11/25 09:00 07/12/25 09:26 Bisoprolol 5mg Tablet PO 08/10/25 08:59 2.5 mg DAILY EDSON Administration Clonazepam 0.5 mg 07/10/25 21:00 07/11/25 20:12 Clonazepam 0.5mg Tablet PO 08/09/25 20:59 0.5 mg HS EDSON Administration Enoxaparin Sodium 40 mg 07/11/25 09:00 07/12/25 09:28 Enoxaparin 40mg/0.4ml Syringe SUBCUT 08/10/25 08:59 40 mg DAILY EDSON Administration Gabapentin 300 mg 07/11/25 09:00 Gabapentin 300mg Capsule PO 08/10/25 08:59 DAILY EDSON Gabapentin 300 mg 07/10/25 21:00 07/10/25 21:10 Gabapentin 300mg Capsule PO 08/09/25 20:59 300 mg DAILY EDSON Administration Gabapentin 300 mg 07/11/25 21:00 07/11/25 20:12 Gabapentin 300mg Capsule PO 08/10/25 20:59 300 mg HS EDSON Administration Hydrochlorothiazide 6.25 mg 07/11/25 09:00 07/12/25 09:22 Hydrochlorothiazide 25mg Tablet PO 08/10/25 08:59 6.25 mg DAILY EDSON Administration Piperacillin Sod/Tazobactam 50 mls @ 100 mls/hr 07/10/25 16:38 07/10/25 19:12 Sod 3.375 gm/ Sodium Chloride IV 07/10/25 17:07 Infused ONCE ONE Infusion Lactated Ringer's 1,000 mls @ 75 mls/hr 07/10/25 17:00 07/12/25 09:30 Lactated Ringer's 1000 Ml Bag IV 08/09/25 16:59 Not Given .[id number] EDSON Sodium Chloride 1,000 mls @ 999 mls/hr 07/10/25 16:54 07/10/25 18:30 Sod Chlor 0.9% 1000ml Bag IV 07/10/25 17:54 Infused .Q1H1M ONE Infusion Piperacillin Sod/Tazobactam 100 mls @ 200 mls/hr 07/11/25 02:00 07/12/25 09:13 Sod 4.5 gm/ Sodium Chloride IV 07/21/25 01:59 200 mls/hr Q6H EDSON Administration Iopamidol 75 ml 07/10/25 15:39 07/10/25 15:40 Iopamidol-370 (76%);100ml Bottle IV 07/10/25 15:40 75 ml ONCE ONE Administration Morphine Sulfate 4 mg 07/10/25 16:52 Morphine 4mg/Ml Syringe IV 08/09/25 16:51 Q4HP PRN Severe Pain (7-10) Nicotine 21 mg 07/10/25 16:52 07/10/25 18:29 Nicotine 21mg/24hr Patch TD 08/09/25 16:51 21 mg DAILYP PRN Administration Nicotine Cravings Pat Own Med 1 tab 07/11/25 09:00 07/12/25 09:27 Auvelity 45-100 Mg PO 08/10/25 08:59 1 tab * BID EDSON Administration Non-Formulary Medication 40 mg 07/11/25 21:00 07/11/25 20:30 Vilazodone PO 08/10/25 20:59 Not Given HS EDSON Ondansetron HCl 4 mg 07/10/25 16:52 Ondansetron 4mg/2ml Vial IV 08/09/25 16:51 Q8HP PRN Nausea Polyethylene Glycol 17 gm 07/11/25 09:00 07/11/25 08:29 Polyethylene Glycol 3350 17 Gm Packet PO 08/10/25 08:59 17 gm DAILY EDSON Administration Potassium Chloride 40 meq 07/11/25 09:30 07/11/25 18:34 Potassium Chloride 20meq Tab PO 07/11/25 17:31 40 meq Q4H EDSON Administration Sodium Chloride 10 ml 07/10/25 15:39 07/10/25 15:40 Sodium Chloride 0.9% 10ml Syr (Rad Only) IV 07/10/25 15:40 10 ml ONCE ONE Administration Sodium Chloride 10 ml 07/11/25 07:40 Sodium Chloride 0.9% 10ml Flush Syringe IV 08/10/25 07:39 NEEDED PRN Maintain IV Site Trazodone HCl 50 mg 07/11/25 21:00 07/11/25 20:12 Trazodone 50mg Tablet PO 08/10/25 20:59 50 mg HS EDSON Administration ORDERS Category Date Time Status CT abdomen pelvis w con Stat Cat Scan 07/10/25 15:05 Completed Consult to General Surgery [CONS] Stat Cons 07/10/25 16:43 Ordered Surgery Consult (on-call) [Consult to On-Call Gen'l Cons 07/10/25 16:52 Ordered Surgeon] [CONS] Routine XR chest portable Stat Exams 07/10/25 15:06 Completed Complete Blood Count Auto Diff AMLAB Lab 07/11/25 05:29 Completed Complete Blood Count Auto Diff Stat Lab 07/10/25 14:45 Completed Comprehensive Metabolic Panel AMLAB Lab 07/11/25 05:29 Completed Comprehensive Metabolic Panel Stat Lab 07/10/25 14:45 Completed HCG Qualitative, Serum Stat Lab 07/10/25 14:45 Completed Lactic Acid Stat Lab 07/10/25 16:48 Completed Lipase Stat Lab 07/10/25 14:45 Completed Magnesium AMLAB Lab 07/11/25 05:29 Completed Magnesium Stat Lab 07/10/25 14:45 Completed Rapid PCR Covid and Flu A/B Stat Lab 07/10/25 17:20 Completed Urinalysis and Microscopic Stat Lab 07/10/25 14:45 Completed Blood Culture Stat Micro 07/10/25 16:50 Results Urine Culture Stat Micro 07/10/25 14:45 Completed Medical Decision Narrative: 44-year-old female presents emerged from with abdominal pain constipation subjective chills fevers for the last 3 days, as well as chills rigors that occurred last night, differential diagnose include but not limited to, acute URI, pneumonia, constipation, bowel obstruction, colitis, ileitis, pancreatitis, appendicitis, diverticulitis, volvulus, among others. I discussed this patient's case with the attending physician Dr. Wilkins Will obtain basic laboratory studies, lactic acid level lipase level magnesium level, PCR COVID and flu, urinalysis, hCG qualitative, chest x-ray and CT ab pelvis with contrast. CBC noted for mild leukocytosis at 13.6 otherwise unremarkable CMP is noted for mild hyponatremia 134 otherwise unremarkable UA is noted for 1+ proteinuria, 1+ hematuria negative nitrites, negative leukocyte esterase. hCG qualitative negative UA is notable for 50-100 RBCs, 5-10 WBCs, 20-50 squamous epithelial cells 4+ bacteria 4+ mucus. I reviewed the patient's CT abdomen pelvis with contrast on the corresponding radiological report acute diverticulitis proximal transverse colon with contained perforation of the transverse mesocolon, no evidence of abscess. Will start on 3.375 IV Zosyn, will obtain blood cultures, and will give 1 liter IV NS I reviewed the patient's chest x-ray along the corresponding radiologic report, no acute process on portable exam. I discussed this patient's case with the on-call general surgeon at approximately 4:40 PM, he recommends n.p.o. after midnight, clear liquid diet, with IV antibiotics, admission to the hospital and he will see the patient in consultation in the a.m. I discussed this patient's case with the hospitalist physician at approximately 4:50 PM, he is in agreement with the current admission plan/treatment plan for acute diverticulitis with perforation General Surgery to see in the AM. I discussed need for admission with the patient the bedside patient is in agreement with the current admission plan/treatment plan. Patient having some pain and is concerned about fever , will give 1 g IV Tylenol for pain. <Lizzy Hicks MD - Last Filed: 07/14/25 08:54> Vital Signs: 07/10/25 14:31 07/10/25 17:56 Temperature 98.9 F 98.4 F Temperature Source Oral Oral Pulse Rate 72 Pulse Rate [Left Radial] 104 H Respiratory Rate 16 16 Blood Pressure 135/72 Blood Pressure [Right Arm] 109/78 L Blood Pressure Mean [Right Arm] 88 Blood Pressure Source Automatic Cuff Blood Pressure Source [Right Arm] Automatic Cuff Blood Pressure Position Sitting Blood Pressure Position [Right Arm] Sitting 02 Sat by Pulse Oximetry 100 Oxygen Delivery Method Room Air Room Air Lab Data Lab Results 07/10/25 14:45: WBC 13.6 H, RBC 4.47, Hgb 13.0, Hct 39.9, MCV 89.3, MCH 29.1, MCHC 32.6, RDW 13.2, Plt Count 287, MPV 9.8, Neut % (Auto) 78.7, Lymph % (Auto) 12.5, [place] % (Auto) 7.6, Eos % (Auto) 0.5, Baso % (Auto) 0.3, Neut # (Auto) 10.7 H, Lymph # (Auto) 1.7, [place] # (Auto) 1.0, Eos # (Auto) 0.1, Baso # (Auto) 0.0, S odium 134 L, Potassium 3.5, Chloride 101, Carbon Dioxide 27, Anion Gap 9.5, BUN 7, Creatinine 0.80, Estimated Creat Clear 139, Estimated GFR 78, Est GFR ( Amer) 94, Glucose 144 H, Calcium 9.3, Magnesium 2.3, Total Bilirubin 1.2, AST 33, ALT 35, Alkaline Phosphatase 77, Total Protein 7.8, Albumin 4.5, G lobulin 3.3 H, Albumin/Globulin Ratio 1.4, Lipase 24, Serum HCG, Qual Negative, Urine Color [place], Urine Appearance Clear, Urine pH 6.0, Ur Specific [place] 1.025, Urine Protein 1+ A, Urine Glucose (UA) Negative, Urine Ketones Trace, U rine Blood 1+ A, Urine Nitrate Negative, Urine Bilirubin Negative, Urine Urobilinogen 1.0, Ur Leukocyte Esterase Negative, Urine RBC 50-100, Urine WBC 5- 10, Ur Squamous Epith Cells 20-50, Urine Bacteria 4+, Urine Mucus 4+, HCV Ab JUS w/Rflx PCR Qn Negative, HIV Ag/Ab Combo Qual Negative 07/10/25 16:48: Lactate 1.1 07/10/25 16:50: A. baumannii (PCR) Not detected, Bacteroides fragilis Not detected, Karla albicans (PCR) Not detected, Karla auris (PCR) Not detected, C. glabrata (PCR) Not detected, C. krusei (PCR) Not detected, C. parapsilosis (PCR) Not detected, C. tropicalis (PCR) Not detected, Cryptococcus neoformans PCR Not detected, Enterobacterales (PCR) Not detected, Enterococc faecalis PCR Not detected, Enterococc faecium PCR Not detected, E. coli (PCR) Not detected, H. influenzae DNA Not detected, Klebsiella aerogenes (PCR) Not detected, Klebsiella oxytoca PCR Not detected, K. pneumoniae group (PCR) Not detected, List. monocytogenes PCR Not detected, N. meningitidis (PCR) Not detected, Proteus species (PCR) Not detected, Salmonella spp. (PCR) Not detected, Serratia marcescens PCR Not detected, Staphylococcus sp PCR Not detected, Staph aureus (PCR) Not detected, mecA/C & MREJ Resist Gene Not applicable, mecA/C-Methicil Resis Gene Not applicable, Staph epidermidis (PCR) Not detected, Staph lugdunensis (TEM-PCR) Not detected, S. maltophilia (PCR) Not detected, Streptococcus sp PCR Not detected, S.agalactiae Grp B CHELO Not detected, Strep pneumoniae (PCR) Not detected, S. pyogenes GrpA CHELO Not detected, P. aeruginosa (PCR) Not detected, Karly/B-Vanco Res Genes Not applicable, blaIMP Car res Gene PCR Not applicable, KPC-Carbap Res Gene PCR Not applicable, blaNDM Car Res Gene PCR Not applicable, OXA-48 Carbapenem Resis Gene (PCR) Not applicable, blaVIM Car Res Gene PCR Not applicable, CTX-M Gene Resistance (PCR) Not applicable, MCR-1 Resistance Gene Not applicable Orders (Tests/Meds): ED MEDICATIONS Discontinued Medications Generic Name Dose Route Start Last Admin Trade Name Freq PRN Reason Stop Dose Admin Acetaminophen 650 mg 07/10/25 16:52 Acetaminophen 325mg Tab PO 08/09/25 16:51 Q4HP PRN Fever or Mild Pain (1-3) Acetaminophen 1,000 mg 07/10/25 16:54 07/10/25 17:08 Acetaminophen 1,000mg/100ml Vial IV 07/10/25 16:55 1,000 mg ONCE ONE Administration Hydrocodone Bitart/Acetaminophen 1 tab 07/10/25 16:52 07/11/25 01:31 Hydrocodone/Apap 5/325 Mg Tablet PO 08/09/25 16:51 1 tab Q4HP PRN Administration Mild to Moderate Pain (1-6) Bisacodyl 10 mg 07/11/25 07:13 07/11/25 08:33 Bisacodyl 10mg Supp RC 07/11/25 07:14 10 mg ONCE ONE Administration Bisoprolol Fumarate 2.5 mg 07/11/25 09:00 07/12/25 09:26 Bisoprolol 5mg Tablet PO 08/10/25 08:59 2.5 mg DAILY EDSON Administration Clonazepam 0.5 mg 07/10/25 21:00 07/11/25 20:12 Clonazepam 0.5mg Tablet PO 08/09/25 20:59 0.5 mg HS EDSON Administration Enoxaparin Sodium 40 mg 07/11/25 09:00 07/12/25 09:28 Enoxaparin 40mg/0.4ml Syringe SUBCUT 08/10/25 08:59 40 mg DAILY EDSON Administration Gabapentin 300 mg 07/11/25 09:00 Gabapentin 300mg Capsule PO 08/10/25 08:59 DAILY EDSON Gabapentin 300 mg 07/10/25 21:00 07/10/25 21:10 Gabapentin 300mg Capsule PO 08/09/25 20:59 300 mg DAILY EDSON Administration Gabapentin 300 mg 07/11/25 21:00 07/11/25 20:12 Gabapentin 300mg Capsule PO 08/10/25 20:59 300 mg HS EDSON Administration Hydrochlorothiazide 6.25 mg 07/11/25 09:00 07/12/25 09:22 Hydrochlorothiazide 25mg Tablet PO 08/10/25 08:59 6.25 mg DAILY EDSON Administration Piperacillin Sod/Tazobactam 50 mls @ 100 mls/hr 07/10/25 16:38 07/10/25 19:12 Sod 3.375 gm/ Sodium Chloride IV 07/10/25 17:07 Infused ONCE ONE Infusion Lactated Ringer's 1,000 mls @ 75 mls/hr 07/10/25 17:00 07/12/25 09:30 Lactated Ringer's 1000 Ml Bag IV 08/09/25 16:59 Not Given .[id number] EDSON Sodium Chloride 1,000 mls @ 999 mls/hr 07/10/25 16:54 07/10/25 18:30 Sod Chlor 0.9% 1000ml Bag IV 07/10/25 17:54 Infused .Q1H1M ONE Infusion Piperacillin Sod/Tazobactam 100 mls @ 200 mls/hr 07/11/25 02:00 07/12/25 09:13 Sod 4.5 gm/ Sodium Chloride IV 07/21/25 01:59 200 mls/hr Q6H EDSON Administration Iopamidol 75 ml 07/10/25 15:39 07/10/25 15:40 Iopamidol-370 (76%);100ml Bottle IV 07/10/25 15:40 75 ml ONCE ONE Administration Morphine Sulfate 4 mg 07/10/25 16:52 Morphine 4mg/Ml Syringe IV 08/09/25 16:51 Q4HP PRN Severe Pain (7-10) Nicotine 21 mg 07/10/25 16:52 07/10/25 18:29 Nicotine 21mg/24hr Patch TD 08/09/25 16:51 21 mg DAILYP PRN Administration Nicotine Cravings Pat Own Med 1 tab 07/11/25 09:00 07/12/25 09:27 Auvelity 45-100 Mg PO 08/10/25 08:59 1 tab * BID EDSON Administration Non-Formulary Medication 40 mg 07/11/25 21:00 07/11/25 20:30 Vilazodone PO 08/10/25 20:59 Not Given HS EDSON Ondansetron HCl 4 mg 07/10/25 16:52 Ondansetron 4mg/2ml Vial IV 08/09/25 16:51 Q8HP PRN Nausea Polyethylene Glycol 17 gm 07/11/25 09:00 07/11/25 08:29 Polyethylene Glycol 3350 17 Gm Packet PO 08/10/25 08:59 17 gm DAILY EDSON Administration Potassium Chloride 40 meq 07/11/25 09:30 07/11/25 18:34 Potassium Chloride 20meq Tab PO 07/11/25 17:31 40 meq Q4H EDSON Administration Sodium Chloride 10 ml 07/10/25 15:39 07/10/25 15:40 Sodium Chloride 0.9% 10ml Syr (Rad Only) IV 07/10/25 15:40 10 ml ONCE ONE Administration Sodium Chloride 10 ml 07/11/25 07:40 Sodium Chloride 0.9% 10ml Flush Syringe IV 08/10/25 07:39 NEEDED PRN Maintain IV Site Trazodone HCl 50 mg 07/11/25 21:00 07/11/25 20:12 Trazodone 50mg Tablet PO 08/10/25 20:59 50 mg HS EDSON Administration ORDERS Category Date Time Status CT abdomen pelvis w con Stat Cat Scan 07/10/25 15:05 Completed Consult to General Surgery [CONS] Stat Cons 07/10/25 16:43 Ordered Surgery Consult (on-call) [Consult to On-Call Gen'l Cons 07/10/25 16:52 Ordered Surgeon] [CONS] Routine XR chest portable Stat Exams 07/10/25 15:06 Completed Complete Blood Count Auto Diff AMLAB Lab 07/11/25 05:29 Completed Complete Blood Count Auto Diff Stat Lab 07/10/25 14:45 Completed Comprehensive Metabolic Panel AMLAB Lab 07/11/25 05:29 Completed Comprehensive Metabolic Panel Stat Lab 07/10/25 14:45 Completed HCG Qualitative, Serum Stat Lab 07/10/25 14:45 Completed Lactic Acid Stat Lab 07/10/25 16:48 Completed Lipase Stat Lab 07/10/25 14:45 Completed Magnesium AMLAB Lab 07/11/25 05:29 Completed Magnesium Stat Lab 07/10/25 14:45 Completed Rapid PCR Covid and Flu A/B Stat Lab 07/10/25 17:20 Completed Urinalysis and Microscopic Stat Lab 07/10/25 14:45 Completed Blood Culture Stat Micro 07/10/25 16:50 Results Urine Culture Stat Micro 07/10/25 14:45 Completed Critical Care <NIKI Yu - Last Filed: 07/10/25 18:27> Critical Care Time Critical Care Time: No <Lizzy Hicks MD - Last Filed: 07/14/25 08:54> Critical Care Time Critical Care Time: Yes Attestation: On 07/10/25, the high probability of a clinically significant, sudden or life threatening deterioration of the following system(s) required my full and direct attention, intervention and personal management. The time I documented below is in addition to time spent performing reported procedures but includes the following listed in this critical care notation. Total Time Total Critical Care Time: 35
--- NOTE | 2025-07-10 15:05 | CT_ITS ---
FINAL REPORT TECHNIQUE: Thin section axial images are obtained through the abdomen and pelvis after intravenous contrast. Reconstruction images were obtained from the axial data. Exam was performed using dose reduction techniques. CLINICAL HISTORY: ABD pain, constipation COMPARISON: None FINDINGS: LUNG BASES: Lung bases are clear. Heart size is normal. LIVER: Homogeneous. No focal lesion. GALLBLADDER/BILIARY SYSTEM: Gallbladder is present. No gallstones. No biliary dilatation. SPLEEN: Unremarkable. PANCREAS: Unremarkable. ADRENALS: Right adrenal gland unremarkable. Small left adrenal nodule is likely an adenoma in a patient this age without known malignancy. KIDNEYS/URETERS/BLADDER: No hydronephrosis, renal mass, or renal stone. Unremarkable urinary bladder. GI TRACT: No small bowel obstruction or dilatation. Normal appendix. Short-segment wall thickening of the proximal transverse colon with significant surrounding abnormal edema and diverticula consistent with acute diverticulitis. There is a small contained perforation in the transverse mesocolon. No evidence of abscess. Remaining GI tract is without acute abnormality. PELVIC ORGANS: Uterus and ovaries are unremarkable. LYMPH NODES/RETROPERITONEUM/MESENTERY: Small retroperitoneal lymph nodes in the upper abdomen are likely reactive. No pelvic lymphadenopathy. No abdominal aortic aneurysm. ABDOMINAL WALL: The abdominal wall is intact. FREE FLUID: No ascites. No free air. BONES: No acute osseous abnormality. IMPRESSION: Acute diverticulitis proximal transverse colon with contained perforation in the transverse mesocolon. No evidence of abscess. Reviewed, Interpreted and Dictated by Mirtha Li MD Transcribed by Leanne Thompson Authenticated and [facility]
--- NOTE | 2025-07-10 15:06 | XR_ITS ---
FINAL REPORT CLINICAL HISTORY: Chills and rigors COMPARISON: 12/06/2024 FINDINGS: A portable view of the chest was obtained. Cardiac and mediastinal silhouettes are within normal limits. The lungs are clear. There is no pleural effusion or pneumothorax. IMPRESSION: No acute process on this portable exam. Reviewed, Interpreted and Dictated by Mirtha Li MD Transcribed by Leanne Thompson Authenticated and [facility]
[2025-07-10 15:10] LABS: Microscopic, Urine URINE MICROSCOPIC (MICROSCOPIC)
[2025-07-10 15:12] LABS: Hematocrit 39.9 % (37.0-47.0); Hemoglobin 13.0 g/dL (12.2-16.2); Immature Granulocytes % 0.4 %; Mean Corpuscular HGB Conc 32.6 g/dL (31.8-35.4); Mean Corpuscular Hemoglobin 29.1 pg (27.0-31.2); Mean Corpuscular Volume 89.3 fl (81-99); Nucleated Red Blood Cells % 0 %; Platelet Count 287 K/mm3 (142-424); Red Blood Count 4.47 M/mm3 (4.20-5.40); Red Cell Distribution Width-SD 43.5 fL; White Blood Count 13.6 K/mm3 (4.8-10.8)
[2025-07-10 15:19] LABS: Alanine Aminotransferase 35 U/L (12-78); Albumin Level 4.5 g/dl (3.5-5.0); Albumin/Globulin Ratio 1.4 (1.1-1.8); Alkaline Phosphatase 77 U/L (38-126); Anion Gap 9.5 mEq/L (5-15); Aspartate Amino Transferase 33 U/L (14-36); Bilirubin,Total 1.2 mg/dl (0.2-1.3); Blood Urea Nitrogen 7 mg/dl (7-17); Calcium 9.3 mg/dl (8.4-10.2); Carbon Dioxide 27 mmol/L (22.0-30.0); Chloride 101 mmol/L (98-107); Creatinine Clearance Estimated 139 mL/min (50-200); Creatinine,Serum 0.80 mg/dl (0.52-1.04); Estimated Glomerular Filt Rate 78 ml/min (>60); GFR (African American) 94 ML/MIN (>60); Globulin 3.3 g/dL (1.3-3.2); Glucose 144 mg/dl (74-100); Lipase 24 U/L (23-300); Magnesium 2.3 mg/dl (1.6-2.3); Potassium 3.5 mmoL/L (3.5-5.1); Sodium 134 mmol/L (136-145); Total Protein,Serum 7.8 g/dl (6.3-8.2)
[2025-07-10 15:29] LABS: Color,Urine ORANGE (Yellow); Glucose,Urine (UA) Negative (Negative); Ketones,Urine TRACE (Negative); Leukocyte Esterase,Urine Negative (Negative); PH,Urine 6.0 (5.0-8.5); Protein,Urine 1+ (Negative); Specific Gravity, Urine 1.025 (1.005-1.030); Urobilinogen,Urine 1.0 EU/dl (0.2)
[2025-07-10 15:31] LABS: Bilirubin,Urine Negative (Negative)
[2025-07-10 15:33] LABS: HCG Qualitative, Serum Negative (Negative)
[2025-07-10] MEDS: SODIUM CHLORIDE 0.9% 10ML SYR (RAD ONLY) 10 ML IV (15:40)
[2025-07-10] MEDS: IOPAMIDOL-370 (76%);100ML BOTTLE 75 ML IV (15:40)
[2025-07-10 16:20] LABS: Bacteria,Urine 4+ /lpf; Mucus,Urine 4+ /lpf; RBC,Urine 50-100 #/hpf (0-3); Squamous Epithelial Cell,Urine 20-50 #/hpf (0-5)
--- NOTE | 2025-07-10 16:56 | EXP.HP ---
History of Present Illness *Admission Date: 07/10/25 *Reason for visit:: abdominal pain *History of present illness: is a 44-year-old female with no prior history of diverticulitis or diverticulosis to her knowledge. She has a family history however. She deals with chronic constipation (IBS-C) that is improved with Linzess. Is otherwise treated for depression. She presented to the ER with complaint of 4 days of worsening upper abdominal pain. Denies nausea or vomiting. Has not had a good bowel movement in 4 days either. Was having them regularly with her Linzess daily up until about 4 days ago. Denies fever, chest pain, shortness of breath but has had some subjective fevers over the past few days. On workup in the ER, was found to have a white count of 13.6. Was tachycardic. CT of her abdomen was obtained showing proximal transverse colon diverticulitis with small area of perforation and stranding. Surgery was consulted. Patient started on Zosyn. Medicine consulted for admission and further management. Surgery recommends serial exams. Urine is abnormal but also has significant squamous cells, likely contaminant. Kidney function stable. Electrolytes normal. On evaluation, patient has upper abdominal pain. No rebound or guarding. Stable on room air. Alert and oriented x 4. [facility] Disclaimer: The information contained in this section may have been updated after the patient was seen, as this information can be updated by other users. Medical History Asthma Irritable bowel syndrome (IBS) Hypertension Major depressive disorder Panic disorder Cervical radiculopathy Surgical History History of colonoscopy H/O nasal septoplasty Family History Other Family history of cancer Family history of diabetes mellitus type II Family history of hyperlipidemia Family history of hypertension Social History Smoking Status: Current every day smoker tobacco type: cigarettes packs per day: 1 second hand exposure: No alcohol intake: never substance use type: denies use current occupational status: employed Travel in the last 8 weeks?: None household members: spouse and children housing: house number of children: 3 current occupational exposures/hazards: No caffeine: Yes Have you lived/traveled outside US in past 30 days?: No Contact w/someone who lives/traveled outside US past 30 days?: No Exposure to someone with infectious disease in past 14 days?: No Do you have a fever (greater than 100.4 F or 38 C)?: No Have you tested positive for COVID-19?: No Exposed to someone with COVID-19 in past 14 days?: No Do you have a sore throat?: No Do you have a cough?: No Do you have any weakness?: No Are you experiencing any nausea/vomitting?: No Do you have any diarrhea?: No Are you experiencing any unusual bleeding?: No Do you have any muscle aches/pain?: No Do you have any abdominal pain?: No Are you experiencing loss of taste or smell?: No Other Medical History Have you received the Flu Vaccine for this season: Yes Have you received the Pneumonia Vaccine: Yes Review of Systems Review of Systems Review of systems (narrative): 14 point review of systems performed, pertinent positives and negatives as per HPI Meds Home Medications and Allergies Home Medications ?Medication ?Instructions ?Recorded ?Confirmed ?Type bisoprolol 2.5 1 tab PO DAILY 08/23/24 07/10/25 History mg-hydrochlorothiazide 6.25 mg tablet linaclotide 290 mcg capsule 290 mcg PO DAILY 08/23/24 07/10/25 History (Linzess) albuterol sulfate 90 mcg/actuation 1 inh inhalation QID PRN shortness 12/06/24 07/10/25 Rx aerosol inhaler of breath or wheezing #6.7 grams diclofenac sodium 75 mg 75 mg PO BID #60 tabs 04/23/25 07/10/25 Rx tablet,delayed release dextromethorphan IR 45 1 tab PO BID #60 ea 06/13/25 07/10/25 Rx mg-bupropion ER 105 mg biphasic tablet (Auvelity) clonazepam 0.5 mg tablet 0.5 mg PO HS #30 tabs 06/20/25 07/10/25 Rx cetirizine 10 mg tablet (Zyrtec) 10 mg PO DAILY 07/10/25 07/10/25 History gabapentin 300 mg capsule 300 mg PO HS 07/10/25 07/10/25 History vilazodone 40 mg tablet 40 mg PO HS 07/10/25 07/10/25 History New Prescriptions to Start Prescriptions: Allergies Allergy/AdvReac Type Severity Reaction Status Date / Time No Known Allergies Allergy Verified 07/10/25 13:40 Exam Data for Last 24 hours Vital signs and Labs for Last 24 Hours: Temp Pulse Resp BP Pulse Ox O2 Del Method 98.9 F 104 H 16 109/78 L 100 Room Air 07/10/25 14:31 07/10/25 14:31 07/10/25 14:31 07/10/25 14:31 07/10/25 14:31 07/10/25 14:31 Laboratory Results - last 24 hr 07/10/25 14:45: WBC 13.6 H, RBC 4.47, Hgb 13.0, Hct 39.9, MCV 89.3, MCH 29.1, MCHC 32.6, RDW 13.2, Plt Count 287, MPV 9.8, Neut % (Auto) 78.7, Lymph % (Auto) 12.5, [place] % (Auto) 7.6, Eos % (Auto) 0.5, Baso % (Auto) 0.3, Neut # (Auto) 10.7 H, Lymph # (Auto) 1.7, [place] # (Auto) 1.0, Eos # (Auto) 0.1, Baso # (Auto) 0.0, Sodium 134 L, Potassium 3.5, Chloride 101, Carbon Dioxide 27, Anion Gap 9.5, BUN 7, Creatinine 0.80, Estimated Creat Clear 139, Estimated GFR 78, Est GFR ( Amer) 94, Glucose 144 H, Calcium 9.3, Magnesium 2.3, Total Bilirubin 1.2, AST 33, ALT 35, Alkaline Phosphatase 77, Total Protein 7.8, Albumin 4.5, Globulin 3.3 H, Albumin/Globulin Ratio 1.4, Lipase 24, Serum HCG, Qual Negative, Urine Color [place], Urine Appearance Clear, Urine pH 6.0, Ur Specific [place] 1.025, Urine Protein 1+ A, Urine Glucose (UA) Negative, Urine Ketones Trace, Urine Blood 1+ A, Urine Nitrate Negative, Urine Bilirubin Negative, Urine Urobilinogen 1.0, Ur Leukocyte Esterase Negative, Urine RBC 50-100, Urine WBC 5-10, Ur Squamous Epith Cells 20-50, Urine Bacteria 4+, Urine Mucus 4+ I & O for Last 24 hours: Intake & Output 07/07/25 07/08/25 07/09/25 07/10/25 23:59 23:59 23:59 23:59 Weight 97.976 kg Constitutional Constitutional: no acute distress, obese and cooperative *Routine HEENT Exam Head: Present normocephalic Eye: Present EOMI and PERRL ENT: Present mucous membranes moist *Routine Neck Exam Neck: Present supple; Absent lymphadenopathy *Routine Respiratory Exam Respiratory: Present CTA bilaterally; Absent rhonchi, wheezes or crackles *Routine Cardiovascular Exam Cardiovascular: Present RRR *Routine Abdominal Exam Abdominal: Present soft, normoactive bowel sounds and tenderness (Upper abdomen, worse in epigastric and right upper quadrant region); Absent distended, rebound or guarding *Routine Rectal Exam Rectal:: deferred *Routine Genitalia Exam Genitalia:: deferred *Routine Extremities Exam Extremities: Absent cyanosis, clubbing or edema *Routine Skin Exam Skin: Present intact and warm; Absent rash *Routine Neurological Exam Neurological: Present alert, oriented X3 and moving all extremities; Absent altered mental status Assessment and Plan *Assessment and plan (1) Acute diverticulitis: Status: Acute Category: Medical Code(s): K57.92 - Diverticulitis of intestine, part unspecified, without perforation or abscess without bleeding (2) Diverticulitis of colon with perforation: Status: Acute Category: Medical Code(s): K57.20 - Diverticulitis of large intestine with perforation and abscess without bleeding (3) Obesity (BMI 30.0-34.9): Status: Acute Category: Medical Code(s): E66.811 - Obesity, class 1 (4) Major depressive disorder: Status: Chronic Qualifiers: Active/Remission status: remission status unspecified Major depression recurrence: recurrent Qualified Code(s): F33.9 - Major depressive disorder, recurrent, unspecified Category: Medical Code(s): F32.9 - Major depressive disorder, single episode, unspecified Plan 44-year-old female who presents with abdominal pain no bowel movement for 4 days, found to have perforated diverticulitis. Discussed case with ER physician, request admission for serial abdominal exams, IV antibiotics, surgical eval. I decided to admit for further care. Continuing Zosyn. N.p.o. after midnight. Problems addressed as follows: Perforated diverticulitis Sepsis -White count elevated 13.6, heart rate greater than 100 at 104 on admission. Infection with diverticulitis per imaging per my review - Continue Zosyn 4.5 g every 6 hours - Blood cultures obtained - Repeat CBC, CMP, magnesium ordered for the morning - Kidney function normal BUN 7, creatinine 0.8, magnesium 2.3 and potassium 3.5 - Surgery consulted to evaluate in the morning - Per my review of CT, has a small perforation with little bit of focal air and stranding near the proximal transverse colon - UA abnormal with 1+ blood, negative leuk esterase or nitrate, 5-10 whites but 20-50 squames. 4+ bacteria. Suspect contaminant. Will monitor culture however. - Tylenol as needed 650 mg every 6 hours for fever pain Major depressive disorder: Continue home Auvelity twice daily; continue vilazodone 40 mg nightly; continue Klonopin 0.5 mg daily Hypertension: Continue bisoprolol/HCTZ daily. Chronic pain/neuropathy: Continue gabapentin 300 mg nightly Full code Lovenox 40 mg subcu daily Clear liquid diet to midnight
--- NOTE | 2025-07-10 16:59 | PC.NURSE ---
HS notified of the need for a bed to admit to the hospitalist for acute diverticulitis.
[2025-07-10] MEDS: 0.9 % SODIUM CHLORIDE 1000ML 1,000 ML 999 ML IV (17:06)
[2025-07-10] MEDS: ACETAMINOPHEN 1,000MG/100ML VIAL 1000 MG IV (17:08)
--- NOTE | 2025-07-10 17:13 | PC.NURSE ---
Called report to [facility]I Chang
[2025-07-10 17:24] LABS: Coronavirus 19, PCR Not Detected (NotDetected); Influenza A, PCR Not Detected (NotDetected); Influenza B, PCR Not Detected (NotDetected)
--- NOTE | 2025-07-10 17:24 | PC.NURSE ---
pt arrived to the unit at this time by wheelchair
[2025-07-10 17:56] VITALS: BP 135/72; PULSE 72; RESP 16; TEMP 36.9; O2SAT 99
[2025-07-10 18:25] VITALS: BMI 29.7
[2025-07-10] MEDS: NICOTINE 21MG/24HR PATCH 21 MG TD (18:29)
[2025-07-10] MEDS: PIPERACILLIN/TAZO 3.375 GM in 0.9 % SODIUM CHLORIDE 50 ML IV (18:36)
[2025-07-10] MEDS: LACTATED RINGERS 1000ML 1,000 ML 75 ML IV (19:13)
[2025-07-10 19:15] LABS: Hepatitis C Ab Qual. W/ RFX NEGATIVE (Negative)
--- NOTE | 2025-07-10 20:10 | PC.NURSE ---
Pt took home meds- Auvelity 40/105 mg and Vilazodone 40mg
[2025-07-10] MEDS: GABAPENTIN 300MG CAPSULE 300 MG PO (21:10)
[2025-07-10 21:45] VITALS: PULSE 73; RESP 16; O2SAT 95
[2025-07-11] VITALS: BP 111/70; PULSE 84; RESP 16; TEMP 36.9; O2SAT 95
[2025-07-11 00:15] VITALS: BP 111/70; PULSE 80; RESP 18; O2SAT 96
[2025-07-11] MEDS: HYDROCODONE/APAP 5/325 MG TABLET 1 TAB PO (01:31)
[2025-07-11] MEDS: PIPERACILLIN/TAZO 4.5 GM in 0.9 % SODIUM CHLORIDE 100 ML IV ×4 (01:40→20:12)
[2025-07-11 04:00] VITALS: BMI 30.2
[2025-07-11 04:31] VITALS: BP 102/54; PULSE 80; RESP 16; O2SAT 94
--- NOTE | 2025-07-11 04:33 | PC.NURSE ---
Addendum entered by Elinor Jenkins RN 07/11/25 04:37: correction- LAC and RFA Original Note: pt c/o pain at IV site in RAC. IV site normal other than small amount of blood from when IV was started. Offered to start new IV for comfort. Pt agreeable. 20G IV started to LFA. IV in RAC DC'd.
[2025-07-11 06:16] LABS: Hematocrit 36.6 % (37.0-47.0); Hemoglobin 12.2 g/dL (12.2-16.2); Immature Granulocytes % 0.2 %; Mean Corpuscular HGB Conc 33.3 g/dL (31.8-35.4); Mean Corpuscular Hemoglobin 30.0 pg (27.0-31.2); Mean Corpuscular Volume 90.1 fl (81-99); Nucleated Red Blood Cells % 0 %; Platelet Count 267 K/mm3 (142-424); Red Blood Count 4.06 M/mm3 (4.20-5.40); Red Cell Distribution Width-SD 44.2 fL; White Blood Count 10.2 K/mm3 (4.8-10.8)
[2025-07-11 06:38] LABS: Alanine Aminotransferase 27 U/L (12-78); Albumin Level 4.0 g/dl (3.5-5.0); Albumin/Globulin Ratio 1.3 (1.1-1.8); Aspartate Amino Transferase 25 U/L (14-36); Blood Urea Nitrogen 5 mg/dl (7-17); Carbon Dioxide 26 mmol/L (22.0-30.0); Creatinine Clearance Estimated 136 mL/min (50-200); Creatinine,Serum 0.80 mg/dl (0.52-1.04); Estimated Glomerular Filt Rate 78 ml/min (>60); GFR (African American) 94 ML/MIN (>60); Globulin 3.0 g/dL (1.3-3.2); Total Protein,Serum 7.0 g/dl (6.3-8.2)
[2025-07-11 07:30] LABS: Alkaline Phosphatase 77 U/L (38-126); Anion Gap 8.1 mEq/L (5-15); Bilirubin,Total 1.1 mg/dl (0.2-1.3); Calcium 8.9 mg/dl (8.4-10.2); Chloride 105 mmol/L (98-107); Glucose 98 mg/dl (74-100); Magnesium 2.4 mg/dl (1.6-2.3); Potassium 3.1 mmoL/L (3.5-5.1); Sodium 136 mmol/L (136-145)
--- NOTE | 2025-07-11 07:31 | HMH.PHAINT1 ---
Pharmacy Intervention Comments: MEDICATION RECONCILIATION COMPLETED ON PATIENT USING EXTERNAL FILL HISTORY FROM PHARMACY AND KIERRA REPORT. -THERON OLIVERA, DIONNAD
--- NOTE | 2025-07-11 07:37 | EXP.SURG.CON ---
History of Present Illness *Admission Date: 07/10/25 *Reason for visit:: Complicated diverticulitis *History of present illness: This is a 44-year-old female seen in consultation after presentation to the emergency department with increasing abdominal pain. Radiographic evidence consistent with complicated diverticulitis noted. Admission to the Hospitalist Service and implementation of IV antibiotics noted. This morning, she states that she feel(s) better...just not normal yet . Forwarded from admission H&P: is a 44-year-old female with no prior history of diverticulitis or diverticulosis to her knowledge. She has a family history however. She deals with chronic constipation (IBS-C) that is improved with Linzess. Is otherwise treated for depression. She presented to the ER with complaint of 4 days of worsening upper abdominal pain. Denies nausea or vomiting. Has not had a good bowel movement in 4 days either. Was having them regularly with her Linzess daily up until about 4 days ago. Denies fever, chest pain, shortness of breath but has had some subjective fevers over the past few days. On workup in the ER, was found to have a white count of 13.6. Was tachycardic. CT of her abdomen was obtained showing proximal transverse colon diverticulitis with small area of perforation and stranding. Surgery was consulted. Patient started on Zosyn. Medicine consulted for admission and further management. Surgery recommends serial exams. Urine is abnormal but also has significant squamous cells, likely contaminant. Kidney function stable. Electrolytes normal. On evaluation, patient has upper abdominal pain. No rebound or guarding. Stable on room air. Alert and oriented x 4. [facility] PENDING SALE TO [facility] Disclaimer: The information contained in this section may have been updated after the patient was seen, as this information can be updated by other users. Medical History Asthma Irritable bowel syndrome (IBS) Hypertension Major depressive disorder Panic disorder Cervical radiculopathy Surgical History History of colonoscopy H/O nasal septoplasty Family History Other Family history of cancer Family history of diabetes mellitus type II Family history of hyperlipidemia Family history of hypertension Social History Smoking Status: Current every day smoker tobacco type: cigarettes packs per day: 1 second hand exposure: No alcohol intake: never substance use type: denies use current occupational status: employed Travel in the last 8 weeks?: None household members: spouse and children housing: house number of children: 3 current occupational exposures/hazards: No caffeine: Yes Have you lived/traveled outside US in past 30 days?: No Contact w/someone who lives/traveled outside US past 30 days?: No Exposure to someone with infectious disease in past 14 days?: No Do you have a fever (greater than 100.4 F or 38 C)?: No Have you tested positive for COVID-19?: No Exposed to someone with COVID-19 in past 14 days?: No Do you have a sore throat?: No Do you have a cough?: No Do you have any weakness?: No Are you experiencing any nausea/vomitting?: No Do you have any diarrhea?: No Are you experiencing any unusual bleeding?: No Do you have any muscle aches/pain?: No Do you have any abdominal pain?: No Are you experiencing loss of taste or smell?: No Review of Systems Review of Systems Review of systems:: pertinent systems reviewed and negative unless documented below *Gastrointestinal Gastrointestinal: Reports as per [facility] Meds Home Medications and Allergies Home Medications ?Medication ?Instructions ?Recorded ?Confirmed ?Type bisoprolol 2.5 1 tab PO DAILY 08/23/24 07/10/25 History mg-hydrochlorothiazide 6.25 mg tablet linaclotide 290 mcg capsule 290 mcg PO DAILY 08/23/24 07/10/25 History (Linzess) albuterol sulfate 90 mcg/actuation 1 inh inhalation QID PRN shortness 12/06/24 07/10/25 Rx aerosol inhaler of breath or wheezing #6.7 grams diclofenac sodium 75 mg 75 mg PO BID #60 tabs 04/23/25 07/10/25 Rx tablet,delayed release dextromethorphan IR 45 1 tab PO BID #60 ea 06/13/25 07/10/25 Rx mg-bupropion ER 105 mg biphasic tablet (Auvelity) clonazepam 0.5 mg tablet 0.5 mg PO HS #30 tabs 06/20/25 07/10/25 Rx cetirizine 10 mg tablet (Zyrtec) 10 mg PO DAILY 07/10/25 07/10/25 History gabapentin 300 mg capsule 300 mg PO HS 07/10/25 07/10/25 History vilazodone 40 mg tablet 40 mg PO HS 07/10/25 07/10/25 History New Prescriptions to Start Prescriptions: Allergies Allergy/AdvReac Type Severity Reaction Status Date / Time No Known Allergies Allergy Verified 07/10/25 13:40 Exam (Inpt) Vital signs and Labs for Last 24 Hours: Temp Pulse Resp BP Pulse Ox O2 Del Method 98.5 F 80 16 102/54 L 94 L Room Air 07/11/25 00:00 07/11/25 04:31 07/11/25 04:31 07/11/25 04:31 07/11/25 04:31 07/11/25 07:30 Laboratory Results - last 24 hr 07/10/25 14:45: WBC 13.6 H, RBC 4.47, Hgb 13.0, Hct 39.9, MCV 89.3, MCH 29.1, MCHC 32.6, RDW 13.2, Plt Count 287, MPV 9.8, Neut % (Auto) 78.7, Lymph % (Auto) 12.5, [place] % (Auto) 7.6, Eos % (Auto) 0.5, Baso % (Auto) 0.3, Neut # (Auto) 10.7 H, Lymph # (Auto) 1.7, [place] # (Auto) 1.0, Eos # (Auto) 0.1, Baso # (Auto) 0.0, Sodium 134 L, Potassium 3.5, Chloride 101, Carbon Dioxide 27, Anion Gap 9.5, BUN 7, Creatinine 0.80, Estimated Creat Clear 139, Estimated GFR 78, Est GFR ( Amer) 94, Glucose 144 H, Calcium 9.3, Magnesium 2.3, Total Bilirubin 1.2, AST 33, ALT 35, Alkaline Phosphatase 77, Total Protein 7.8, Albumin 4.5, Globulin 3.3 H, Albumin/Globulin Ratio 1.4, Lipase 24, Serum HCG, Qual Negative, Urine Color [place], Urine Appearance Clear, Urine pH 6.0, Ur Specific [place] 1.025, Urine Protein 1+ A, Urine Glucose (UA) Negative, Urine Ketones Trace, Urine Blood 1+ A, Urine Nitrate Negative, Urine Bilirubin Negative, Urine Urobilinogen 1.0, Ur Leukocyte Esterase Negative, Urine RBC 50-100, Urine WBC 5-10, Ur Squamous Epith Cells 20-50, Urine Bacteria 4+, Urine Mucus 4+, HCV Ab JUS w/Rflx PCR Qn Negative, HIV Ag/Ab Combo Qual Negative 07/10/25 16:48: Lactate 1.1 07/10/25 17:20: SARS-CoV-2 (PCR) Not detected, Influenza A Untype (PCR) Not detected, Influenza Type B (PCR) Not detected 07/11/25 05:29: WBC 10.2, RBC 4.06 L, Hgb 12.2, Hct 36.6 L, MCV 90.1, MCH 30.0, MCHC 33.3, RDW 13.2, Plt Count 267, MPV 10.0, Neut % (Auto) 66.8, Lymph % (Auto) 21.9, [place] % (Auto) 8.3, Eos % (Auto) 2.4, Baso % (Auto) 0.4, Neut # (Auto) 6.8, Lymph # (Auto) 2.2, [place] # (Auto) 0.9, Eos # (Auto) 0.3, Baso # (Auto) 0.0, Sodium 136, Potassium 3.1 L, Chloride 105, Carbon Dioxide 26, Anion Gap 8.1, BUN 5 L D, Creatinine 0.80, Estimated Creat Clear 136, Estimated GFR 78, Est GFR ( Amer) 94, Glucose 98 D, Calcium 8.9, Magnesium 2.4 H, Total Bilirubin 1.1, AST 25, ALT 27, Alkaline Phosphatase 77, Total Protein 7.0, Albumin 4.0 D, Globulin 3.0, Albumin/Globulin Ratio 1.3 I & O for Labs for Last 24 Hours: Intake & Output 07/08/25 07/09/25 07/10/25 07/11/25 11:59 11:59 11:59 11:59 Intake Total 1150 / 1150 Output Total 0 / 0 Balance 1150 / 1150 Weight 211 lb 8 oz Results Labs 07/11/25 05:29 07/11/25 05:29 Labs: Laboratory Results - last 24 hr 07/10/25 14:45: WBC 13.6 H, RBC 4.47, Hgb 13.0, Hct 39.9, MCV 89.3, MCH 29.1, MCHC 32.6, RDW 13.2, Plt Count 287, MPV 9.8, Neut % (Auto) 78.7, Lymph % (Auto) 12.5, [place] % (Auto) 7.6, Eos % (Auto) 0.5, Baso % (Auto) 0.3, Neut # (Auto) 10.7 H, Lymph # (Auto) 1.7, [place] # (Auto) 1.0, Eos # (Auto) 0.1, Baso # (Auto) 0.0, Sodium 134 L, Potassium 3.5, Chloride 101, Carbon Dioxide 27, Anion Gap 9.5, BUN 7, Creatinine 0.80, Estimated Creat Clear 139, Estimated GFR 78, Est GFR ( Amer) 94, Glucose 144 H, Calcium 9.3, Magnesium 2.3, Total Bilirubin 1.2, AST 33, ALT 35, Alkaline Phosphatase 77, Total Protein 7.8, Albumin 4.5, Globulin 3.3 H, Albumin/Globulin Ratio 1.4, Lipase 24, Serum HCG, Qual Negative, Urine Color [place], Urine Appearance Clear, Urine pH 6.0, Ur Specific [place] 1.025, Urine Protein 1+ A, Urine Glucose (UA) Negative, Urine Ketones Trace, Urine Blood 1+ A, Urine Nitrate Negative, Urine Bilirubin Negative, Urine Urobilinogen 1.0, Ur Leukocyte Esterase Negative, Urine RBC 50-100, Urine WBC 5-10, Ur Squamous Epith Cells 20-50, Urine Bacteria 4+, Urine Mucus 4+, HCV Ab JUS w/Rflx PCR Qn Negative, HIV Ag/Ab Combo Qual Negative 07/10/25 16:48: Lactate 1.1 07/10/25 17:20: SARS-CoV-2 (PCR) Not detected, Influenza A Untype (PCR) Not detected, Influenza Type B (PCR) Not detected 07/11/25 05:29: WBC 10.2, RBC 4.06 L, Hgb 12.2, Hct 36.6 L, MCV 90.1, MCH 30.0, MCHC 33.3, RDW 13.2, Plt Count 267, MPV 10.0, Neut % (Auto) 66.8, Lymph % (Auto) 21.9, [place] % (Auto) 8.3, Eos % (Auto) 2.4, Baso % (Auto) 0.4, Neut # (Auto) 6.8, Lymph # (Auto) 2.2, [place] # (Auto) 0.9, Eos # (Auto) 0.3, Baso # (Auto) 0.0, Sodium 136, Potassium 3.1 L, Chloride 105, Carbon Dioxide 26, Anion Gap 8.1, BUN 5 L D, Creatinine 0.80, Estimated Creat Clear 136, Estimated GFR 78, Est GFR ( Amer) 94, Glucose 98 D, Calcium 8.9, Magnesium 2.4 H, Total Bilirubin 1.1, AST 25, ALT 27, Alkaline Phosphatase 77, Total Protein 7.0, Albumin 4.0 D, Globulin 3.0, Albumin/Globulin Ratio 1.[address] scan - abdomen: report reviewed and image reviewed CT scan - pelvis: report reviewed and image reviewed Assessment and Plan *Assessment and plan (1) Diverticulitis of large intestine with complication: Status: Acute Category: Medical Code(s): K57.32 - Diverticulitis of large intestine without perforation or abscess without bleeding Plan: Showing improvement after implementation of IV antibiotics. No need for emergent intervention. Continue antibiotics Continue serial abdominal exams Short-term/delayed post-treatment colonoscopy (deferred to the gastroenterology service?see below) Discussion with regard to risks/benefits of elective resection will be ongoing (2) Chronic constipation: Status: Acute Category: Medical Code(s): K59.09 - Other constipation Plan: Outpatient gastroenterology consultation in near future Defer post-treatment colonoscopy to the gastroenterology service
[2025-07-11 08:24] VITALS: BP 122/68; PULSE 87; TEMP 36.7; O2SAT 94
[2025-07-11] MEDS: POLYETHYLENE GLYCOL 3350 17 GM PACKET PO (08:29)
[2025-07-11] MEDS: BISOPROLOL 5MG TABLET 2.5 MG PO (08:31)
--- NOTE | 2025-07-11 08:31 | HMH.PHAAMS2 ---
- Antimicrobial Stewardship Review culture & sensitivity review Stewardship interventions: culture & sensitivity review Comments: BLOOD AND URINE CULTURES PENDING, PATIENT ON ZOSYN EMPIRICALLY FOR DIVERTICULITIS.
[2025-07-11] MEDS: BISACODYL 10MG SUPP 10 MG RC (08:33)
[2025-07-11] MEDS: POTASSIUM CHLORIDE 20MEQ TAB 40 MEQ PO ×3 (09:25→18:34)
--- NOTE | 2025-07-11 09:34 | EXP.ACUTE.PN ---
Subjective *Date: 07/11/25 *Time: 10:24 Interval history: Still having some pain this morning. No fever overnight. White count better today. States cramping is a little bit more this morning. No nausea or vomiting. Still no bowel movement since admission. Medical Exam Vital signs and Labs for Last 24 Hours: Vital Signs Temp Pulse Pulse Resp BP BP Pulse Ox 07/11/25 09:00 07/11/25 08:24 98.0 F 87 122/68 94 L 07/11/25 07:30 07/11/25 06:45 07/11/25 05:00 07/11/25 04:31 80 16 102/54 L 94 L 07/11/25 03:00 07/11/25 01:00 07/11/25 00:15 80 18 111/70 96 07/11/25 00:00 98.5 F 84 16 111/70 95 07/10/25 23:00 07/10/25 21:45 73 16 95 07/10/25 21:00 07/10/25 20:00 07/10/25 19:00 07/10/25 18:00 07/10/25 17:56 98.4 F 72 16 135/72 07/10/25 14:31 98.9 F 104 H 16 109/78 L 100 O2 Del Method 07/11/25 09:00 Room Air 07/11/25 08:24 Room Air 07/11/25 07:30 Room Air 07/11/25 06:45 Room Air 07/11/25 05:00 Room Air 07/11/25 04:31 Room Air 07/11/25 03:00 Room Air 07/11/25 01:00 Room Air 07/11/25 00:15 07/11/25 00:00 07/10/25 23:00 Room Air 07/10/25 21:45 Room Air 07/10/25 21:00 Room Air 07/10/25 20:00 Room Air 07/10/25 19:00 Room Air 07/10/25 18:00 Room Air 07/10/25 17:56 Room Air 07/10/25 14:31 Room Air Intake and Output 07/10/25 07/11/25 07/11/25 23:59 07:59 15:59 Intake Total 1050 / 1050 100 / 320 220 / 320 Output Total 0 / 0 0 / 0 0 / 0 Balance 1050 / 1050 100 / 320 220 / 320 Intake: Intake, Oral Amount 120 / 120 Intake, Total IV Amount 1050 / 1050 100 / 200 100 / 200 0.9 % Sodium Chloride 1000ML 1, 1000 / 1000 000 ml @ 999 mls/hr IV .Q1H1M ONE Rx#:[id number] Piperacillin/Tazo 3.375 gm In 0 50 / 50 .9 % Sodium Chloride 50 ml @ 100 mls/hr IV ONCE ONE Rx#: [id number] Piperacillin/Tazo 4.5 gm In 0.9 100 / 200 100 / 200 % Sodium Chloride 100 ml @ 200 mls/hr IV Q6H [facility] Rx#:[id number] Output: Output, Urine Amount 0 / 0 0 / 0 0 / 0 Other: Number of Unmeasured Voids 1 1 1 Number of Bowel Movements 1 Weight 94.149 kg 95.935 kg Patient Weight 07/11/25 23:59 Weight 95.935 kg Laboratory Results - last 24 hr 07/10/25 14:45: WBC 13.6 H, RBC 4.47, Hgb 13.0, Hct 39.9, MCV 89.3, MCH 29.1, MCHC 32.6, RDW 13.2, Plt Count 287, MPV 9.8, Neut % (Auto) 78.7, Lymph % (Auto) 12.5, [place] % (Auto) 7.6, Eos % (Auto) 0.5, Baso % (Auto) 0.3, Neut # (Auto) 10.7 H, Lymph # (Auto) 1.7, [place] # (Auto) 1.0, Eos # (Auto) 0.1, Baso # (Auto) 0.0, Sodium 134 L, Potassium 3.5, Chloride 101, Carbon Dioxide 27, Anion Gap 9.5, BUN 7, Creatinine 0.80, Estimated Creat Clear 139, Estimated GFR 78, Est GFR ( Amer) 94, Glucose 144 H, Calcium 9.3, Magnesium 2.3, Total Bilirubin 1.2, AST 33, ALT 35, Alkaline Phosphatase 77, Total Protein 7.8, Albumin 4.5, Globulin 3.3 H, Albumin/Globulin Ratio 1.4, Lipase 24, Serum HCG, Qual Negative, Urine Color [place], Urine Appearance Clear, Urine pH 6.0, Ur Specific [place] 1.025, Urine Protein 1+ A, Urine Glucose (UA) Negative, Urine Ketones Trace, Urine Blood 1+ A, Urine Nitrate Negative, Urine Bilirubin Negative, Urine Urobilinogen 1.0, Ur Leukocyte Esterase Negative, Urine RBC 50-100, Urine WBC 5-10, Ur Squamous Epith Cells 20-50, Urine Bacteria 4+, Urine Mucus 4+, HCV Ab JUS w/Rflx PCR Qn Negative, HIV Ag/Ab Combo Qual Negative 07/10/25 16:48: Lactate 1.1 07/10/25 17:20: SARS-CoV-2 (PCR) Not detected, Influenza A Untype (PCR) Not detected, Influenza Type B (PCR) Not detected 07/11/25 05:29: WBC 10.2, RBC 4.06 L, Hgb 12.2, Hct 36.6 L, MCV 90.1, MCH 30.0, MCHC 33.3, RDW 13.2, Plt Count 267, MPV 10.0, Neut % (Auto) 66.8, Lymph % (Auto) 21.9, [place] % (Auto) 8.3, Eos % (Auto) 2.4, Baso % (Auto) 0.4, Neut # (Auto) 6.8, Lymph # (Auto) 2.2, [place] # (Auto) 0.9, Eos # (Auto) 0.3, Baso # (Auto) 0.0, Sodium 136, Potassium 3.1 L, Chloride 105, Carbon Dioxide 26, Anion Gap 8.1, BUN 5 L D, Creatinine 0.80, Estimated Creat Clear 136, Estimated GFR 78, Est GFR ( Amer) 94, Glucose 98 D, Calcium 8.9, Magnesium 2.4 H, Total Bilirubin 1.1, AST 25, ALT 27, Alkaline Phosphatase 77, Total Protein 7.0, Albumin 4.0 D, Globulin 3.0, Albumin/Globulin Ratio 1.3 I & O for Labs for Last 24 Hours: Intake & Output 07/08/25 07/09/25 07/10/25 07/11/25 23:59 23:59 23:59 23:59 Intake Total 1050 / 1050 320 / 320 Output Total 0 / 0 0 / 0 Balance 1050 / 1050 320 / 320 Weight 94.149 kg 95.935 kg Constitutional: Present no acute distress and cooperative Respiratory: Present normal respiratory effort; Absent respiratory distress, rhonchi, stridor, wheezes or crackles Cardiac: Present Reg Rate and Rhythm GI: Present soft, tenderness (Upper abdomen, no rebound or guarding) and normal bowel sounds; Absent distention Extremities: Present normal inspection and full ROM Skin: Present intact; Absent erythema Neuro: Present Grossly Intact, alert, awake, oriented x 3 and moves all extremities Assessment and Plan *Assessment and plan (1) Acute diverticulitis: Status: Deleted Category: Medical Code(s): K57.92 - Diverticulitis of intestine, part unspecified, without perforation or abscess without bleeding (2) Diverticulitis of colon with perforation: Status: Deleted Category: Medical Code(s): K57.20 - Diverticulitis of large intestine with perforation and abscess without bleeding (3) Obesity (BMI 30.0-34.9): Status: Acute Category: Medical Code(s): E66.811 - Obesity, class 1 (4) Major depressive disorder: Status: Chronic Qualifiers: Active/Remission status: remission status unspecified Major depression recurrence: recurrent Qualified Code(s): F33.9 - Major depressive disorder, recurrent, unspecified Category: Medical Code(s): F32.9 - Major depressive disorder, single episode, unspecified Plan 44-year-old female who presents with abdominal pain no bowel movement for 4 days, found to have perforated diverticulitis. Discussed case with ER physician, request admission for serial abdominal exams, IV antibiotics, surgical eval. I decided to admit for further care. Continuing Zosyn. Advance to clear liquid diet today. Surgery assisting with care. Problems addressed as follows: Perforated diverticulitis Sepsis - White count elevated 13.6, heart rate greater than 100 at 104 on admission. Infection with diverticulitis per imaging per my review -White count improved to 10.2. Continuing Zosyn 4.5 g every 6 hours. Blood cultures remain negative. -Discussed case with surgery, continue serial exams. No plan for intervention at this time. Okay to cautiously advance diet and initiate bowel regimen -MiraLAX 17 g x 1 p.o. with bisacodyl suppository once this morning. If no bowel movement by this afternoon, consider small volume of magnesium citrate to promote bowel movement - Potassium 3.1, will initiate electrolyte protocol. BUN 5, creatinine 0.8. Magnesium 2.4. - Repeat BMP, CBC, magnesium ordered for the morning - Tylenol as needed 650 mg every 6 hours for fever pain, Hydrocodone 5/325 as needed every 4 hours for severe breakthrough pain Tobacco use disorder: Continue nicotine patch 21 mg daily Major depressive disorder: Continue home Auvelity twice daily; continue vilazodone 40 mg nightly; continue Klonopin 0.5 mg daily Hypertension: Continue bisoprolol/HCTZ daily. Chronic pain/neuropathy: Continue gabapentin 300 mg nightly Full code Lovenox 40 mg subcu daily Clear liquid diet
--- NOTE | 2025-07-11 11:15 | PC.NURSE ---
arrived by w/c from ICU
--- NOTE | 2025-07-11 11:15 | PC.NURSE ---
PT LEFT ICU WITH MED SURG STAFF
[2025-07-11] MEDS: LACTATED RINGERS 1000ML 1,000 ML 75 ML IV (14:09)
[2025-07-11 16:00] VITALS: BP 118/73; PULSE 63; RESP 16; TEMP 36.7; O2SAT 98
--- NOTE | 2025-07-11 16:42 | PC.NURSE ---
patient is tolerating full liquid diet, MD does not want diet advanced past full liquid at this time, denies abd pain and/or nausea/vomiting. Patient reports several liquid bowel movements this afternoon. Patient has requested something to help her sleep MD екатерина notified, awaiting orders.
[2025-07-11 20:00] VITALS: BP 122/71; PULSE 79; RESP 16; TEMP 37; O2SAT 98
[2025-07-11] MEDS: TRAZODONE 50MG TABLET 50 MG PO (20:12)
[2025-07-11] MEDS: GABAPENTIN 300MG CAPSULE 300 MG PO (20:12)
[2025-07-12 00:23] LABS: Enterococcus faecalis Not detected; Enterococcus faecium Not detected; Staphylococcus epidermidis Not detected; Staphylococcus lugdunensis Not detected; Staphylococcus spp. Not detected; Streptococcus agalactiae(GrpB) Not detected; Streptococcus pyogenes Group A Not detected; Streptococcus spp. Not detected
[2025-07-12 00:24] LABS: Acinetobacter calcoaceticus-ba Not detected; Bacteroides fragilis Not detected; Candida auris Not detected; Candida glabrata Not detected; Enterobacterales Not detected; Klebsiella aerogenes Not detected; Klebsiella pneumoniae grp Not detected; Proteus spp. Not detected; Salmonella spp. Not detected; Serratia marcescens Not detected; Stenotrophomonas maltophilia Not detected
[2025-07-12] MEDS: LACTATED RINGERS 1000ML 1,000 ML 75 ML IV (02:31)
[2025-07-12] MEDS: PIPERACILLIN/TAZO 4.5 GM in 0.9 % SODIUM CHLORIDE 100 ML IV ×2 (02:31→09:13)
[2025-07-12 04:00] VITALS: BP 103/63; PULSE 73; RESP 16; TEMP 36.9; O2SAT 97; BMI 31.4
--- NOTE | 2025-07-12 05:32 | PC.NURSE ---
Pt is A&OX4 and has tolerated room air. She has denied any abdominal pain or nausea this shift. She has reported to have a couple liquid BMs. She has received IV ABX. Ambulating room independently. No complaints at this time, call light with in reach.
[2025-07-12 05:34] LABS: Hematocrit 35.5 % (37.0-47.0); Immature Granulocytes % 0.2 %; Mean Corpuscular HGB Conc 30.7 g/dL (31.8-35.4); Mean Corpuscular Hemoglobin 27.9 pg (27.0-31.2); Mean Corpuscular Volume 91.0 fl (81-99); Nucleated Red Blood Cells % 0 %; Platelet Count 261 K/mm3 (142-424); Red Blood Count 3.90 M/mm3 (4.20-5.40); Red Cell Distribution Width-SD 43.8 fL; White Blood Count 8.0 K/mm3 (4.8-10.8)
[2025-07-12 05:35] LABS: Chloride 109 mmol/L (98-107); Potassium 4.4 mmoL/L (3.5-5.1); Sodium 143 mmol/L (136-145)
[2025-07-12 05:38] LABS: Anion Gap 15.4 mEq/L (5-15); Blood Urea Nitrogen 5 mg/dl (7-17); Calcium 8.6 mg/dl (8.4-10.2); Carbon Dioxide 23 mmol/L (22.0-30.0); Creatinine Clearance Estimated 126 mL/min (50-200); Creatinine,Serum 0.90 mg/dl (0.52-1.04); Estimated Glomerular Filt Rate 68 ml/min (>60); GFR (African American) 82 ML/MIN (>60); Glucose 96 mg/dl (74-100); Magnesium 2.5 mg/dl (1.6-2.3)
[2025-07-12 05:42] LABS: Hemoglobin 11.3 g/dL (12.2-16.2)
--- NOTE | 2025-07-12 07:20 | EXP.DC.SUM ---
General Admission date:: 07/10/25 Discharge date: 07/12/25 HPI HPI HPI: This is a 44-year-old female seen in consultation after presentation to the emergency department with increasing abdominal pain. Radiographic evidence consistent with complicated diverticulitis noted. Admission to the Hospitalist Service and implementation of IV antibiotics noted. This morning, she states that she feel(s) better...just not normal yet . Forwarded from admission H&P: is a 44-year-old female with no prior history of diverticulitis or diverticulosis to her knowledge. She has a family history however. She deals with chronic constipation (IBS-C) that is improved with Linzess. Is otherwise treated for depression. She presented to the ER with complaint of 4 days of worsening upper abdominal pain. Denies nausea or vomiting. Has not had a good bowel movement in 4 days either. Was having them regularly with her Linzess daily up until about 4 days ago. Denies fever, chest pain, shortness of breath but has had some subjective fevers over the past few days. On workup in the ER, was found to have a white count of 13.6. Was tachycardic. CT of her abdomen was obtained showing proximal transverse colon diverticulitis with small area of perforation and stranding. Surgery was consulted. Patient started on Zosyn. Medicine consulted for admission and further management. Surgery recommends serial exams. Urine is abnormal but also has significant squamous cells, likely contaminant. Kidney function stable. Electrolytes normal. On evaluation, patient has upper abdominal pain. No rebound or guarding. Stable on room air. Alert and oriented x 4. Hospital Course Hospital Course Hospital Course: 44-year-old female who presents with abdominal pain no bowel movement for 4 days, found to have perforated diverticulitis. Discussed case with ER physician, request admission for serial abdominal exams, IV antibiotics, surgical eval. I decided to admit for further care. Initiated on Zosyn. Showed improvement in abdominal pain and normalization of white count. Having bowel movements. Tolerating advancement of diet. Given her clinical improvement, will discharge home to complete antibiotic course. Follow-up with surgery in a week. Problems addressed as follows: Perforated diverticulitis Sepsis, resolved - White count elevated 13.6, heart rate greater than 100 at 104 on admission. Infection with diverticulitis per imaging per my review. White count normalized after initiating antibiotics. Treated with Zosyn 4.5 g every 6 hours during admission. Blood cultures remain negative. Patient able to advance diet. Pain improving with antibiotics and bowel regimen. Having bowel movements. Given her tolerance of p.o. intake, improvement in pain, normalization of white count, stable to discharge home to complete antibiotic course. Will transition to Augmentin 875 twice daily to complete 7 days of antibiotics. Continue Tylenol or ibuprofen for pain. Recommend she hold on initiating her Linzess until completing antibiotics unless she has no bowel movement for 24 to 48 hours. Continue MiraLAX. Discussed case with surgery, feel patient's abdomen is doing better. Follow-up next week for repeat exam and reevaluation. No indication for intervention at this time. Tobacco use disorder: Continue nicotine patch 21 mg daily while admitted. Encourage smoking cessation Major depressive disorder: Continue home Auvelity twice daily; continue vilazodone 40 mg nightly; continue Klonopin 0.5 mg daily Hypertension: Continue bisoprolol/HCTZ daily. Chronic pain/neuropathy: Continue gabapentin 300 mg nightly Total time spent on discharge 32 minutes in counseling, discussion with surgery, documentation, chart review, and direct care with patient. Exam Data for Last 24 hours Vital signs and Labs for Last 24 Hours: Temp Pulse Resp BP Pulse Ox O2 Del Method 98.5 F 73 16 103/63 L 97 Room Air 07/12/25 04:00 07/12/25 04:00 07/12/25 04:00 07/12/25 04:00 07/12/25 04:00 07/12/25 06:31 Laboratory Results - last 24 hr 07/10/25 16:50: A. baumannii (PCR) Not detected, Bacteroides fragilis Not detected, Karla albicans (PCR) Not detected, Karla auris (PCR) Not detected, C. glabrata (PCR) Not detected, C. krusei (PCR) Not detected, C. parapsilosis (PCR) Not detected, C. tropicalis (PCR) Not detected, Cryptococcus neoformans PCR Not detected, Enterobacterales (PCR) Not detected, Enterococc faecalis PCR Not detected, Enterococc faecium PCR Not detected, E. coli (PCR) Not detected, H. influenzae DNA Not detected, Klebsiella aerogenes (PCR) Not detected, Klebsiella oxytoca PCR Not detected, K. pneumoniae group (PCR) Not detected, List. monocytogenes PCR Not detected, N. meningitidis (PCR) Not detected, Proteus species (PCR) Not detected, Salmonella spp. (PCR) Not detected, Serratia marcescens PCR Not detected, Staphylococcus sp PCR Not detected, Staph aureus (PCR) Not detected, mecA/C & MREJ Resist Gene Not applicable, mecA/C-Methicil Resis Gene Not applicable, Staph epidermidis (PCR) Not detected, Staph lugdunensis (TEM-PCR) Not detected, S. maltophilia (PCR) Not detected, Streptococcus sp PCR Not detected, S.agalactiae Grp B CHELO Not detected, Strep pneumoniae (PCR) Not detected, S. pyogenes GrpA CHELO Not detected, P. aeruginosa (PCR) Not detected, Karly/B-Vanco Res Genes Not applicable, blaIMP Car res Gene PCR Not applicable, KPC-Carbap Res Gene PCR Not applicable, blaNDM Car Res Gene PCR Not applicable, OXA-48 Carbapenem Resis Gene (PCR) Not applicable, blaVIM Car Res Gene PCR Not applicable, CTX-M Gene Resistance (PCR) Not applicable, MCR-1 Resistance Gene Not applicable 07/11/25 05:29: Sodium 136, Potassium 3.1 L, Chloride 105, Anion Gap 8.1, Glucose 98 D, Calcium 8.9, Magnesium 2.4 H, Total Bilirubin 1.1, Alkaline Phosphatase 77 07/12/25 05:19: WBC 8.0, RBC 3.90 L, Hgb 11.3 L, Hct 35.5 L, MCV 91.0, MCH 27.9, MCHC 30.7 L, RDW 13.2, Plt Count 261, MPV 9.7, Neut % (Auto) 64.5, Lymph % (Auto) 22.4, [place] % (Auto) 8.0, Eos % (Auto) 4.4, Baso % (Auto) 0.5, Neut # (Auto) 5.2, Lymph # (Auto) 1.8, [place] # (Auto) 0.6, Eos # (Auto) 0.4, Baso # (Auto) 0.0, Sodium 143, Potassium 4.4 D, Chloride 109 H, Carbon Dioxide 23, Anion Gap 15.4 H, BUN 5 L, Creatinine 0.90, Estimated Creat Clear 126, Estimated GFR 68, Est GFR ( Amer) 82, Glucose 96, Calcium 8.6, Magnesium 2.5 H I & O for Last 24 hours: Intake & Output 07/09/25 07/10/25 07/11/25 07/12/25 23:59 23:59 23:59 23:59 Intake Total 1050 / 1050 2954 / 3254 1327.5 / 1327.5 Output Total 0 / 0 0 / 0 Balance 1050 / 1050 2954 / 3254 1327.5 / 1327.5 Weight 94.149 kg 95.935 kg 99.79 kg Microbiology Reports for the Last 24 Hours: Microbiology 07/10/25 14:45 Urine,Clean Catch Urine Culture - Final NO GROWTH AFTER 48 HOURS 07/10/25 16:50 Blood Blood Culture - Preliminary 07/10/25 16:48 Blood Blood Culture - Preliminary NO GROWTH AFTER 24 HOURS Constitutional Constitutional: no acute distress, obese and cooperative *Routine HEENT Exam Head: Present normocephalic Eye: Present EOMI and PERRL ENT: Present mucous membranes moist *Routine Neck Exam Neck: Present supple; Absent lymphadenopathy *Routine Respiratory Exam Respiratory: Present CTA bilaterally *Routine Cardiovascular Exam Cardiovascular: Present RRR *Routine Abdominal Exam Abdominal: Present soft, normoactive bowel sounds and tenderness (Mild, interval improvement. Epigastric); Absent distended or rebound *Routine Rectal Exam Patient deferred: visual exam *Routine Exam Patient deferred: external exam *Routine Extremities Exam Extremities: Absent cyanosis, clubbing or edema *Routine Skin Exam Skin: Present warm; Absent rash *Routine Neurological Exam Neurological: Present alert, oriented X3 and moving all extremities; Absent altered mental status Results Data Completed and Pending Labs on day of discharge: Labs from last 24 hours 07/12/25 07/11/25 07/10/25 05:19 05:29 16:50 WBC 8.0 RBC 3.90 L Hgb 11.3 L Hct 35.5 L MCV 91.0 MCH 27.9 MCHC 30.7 L RDW 13.2 Plt Count 261 MPV 9.7 Neut % (Auto) 64.5 Lymph % (Auto) 22.4 [place] % (Auto) 8.0 Eos % (Auto) 4.4 Baso % (Auto) 0.5 Neut # (Auto) 5.2 Lymph # (Auto) 1.8 [place] # (Auto) 0.6 Eos # (Auto) 0.4 Baso # (Auto) 0.0 Sodium 143 136 Potassium 4.4 D 3.1 L Chloride 109 H 105 Carbon Dioxide 23 Anion Gap 15.4 H 8.1 BUN 5 L Creatinine 0.90 Estimated Creat Clear 126 Estimated GFR 68 Est GFR ( Amer) 82 Glucose 96 98 D Calcium 8.6 8.9 Magnesium 2.5 H 2.4 H Total Bilirubin 1.1 Alkaline Phosphatase 77 A. baumannii (PCR) Not detected Bacteroides fragilis Not detected Karla albicans (PCR) Not detected Karla auris (PCR) Not detected C. glabrata (PCR) Not detected C. krusei (PCR) Not detected C. parapsilosis (PCR) Not detected C. tropicalis (PCR) Not detected Cryptococcus neoformans PCR Not detected Enterobacterales (PCR) Not detected Enterococc faecalis PCR Not detected Enterococc faecium PCR Not detected E. coli (PCR) Not detected H. influenzae DNA Not detected Klebsiella aerogenes (PCR) Not detected Klebsiella oxytoca PCR Not detected K. pneumoniae group (PCR) Not detected List. monocytogenes PCR Not detected N. meningitidis (PCR) Not detected Proteus species (PCR) Not detected Salmonella spp. (PCR) Not detected Serratia marcescens PCR Not detected Staphylococcus sp PCR Not detected Staph aureus (PCR) Not detected mecA/C & MREJ Resist Gene Not applicable mecA/C-Methicil Resis Gene Not applicable Staph epidermidis (PCR) Not detected Staph lugdunensis (TEM-PCR) Not detected S. maltophilia (PCR) Not detected Streptococcus sp PCR Not detected S.agalactiae Grp B CHELO Not detected Strep pneumoniae (PCR) Not detected S. pyogenes GrpA CHELO Not detected P. aeruginosa (PCR) Not detected Karly/B-Vanco Res Genes Not applicable blaIMP Car res Gene PCR Not applicable KPC-Carbap Res Gene PCR Not applicable blaNDM Car Res Gene PCR Not applicable OXA-48 Carbapenem Resis Gene (PCR) Not applicable blaVIM Car Res Gene PCR Not applicable CTX-M Gene Resistance (PCR) Not applicable MCR-1 Resistance Gene Not applicable Preliminary micro results at discharge 07/10/25 16:50 Blood Culture - Preliminary Blood 07/10/25 16:48 Blood Culture - Preliminary Blood NO GROWTH AFTER 24 HOURS DS: Diagnosis Discharge Diagnosis (1) Acute diverticulitis: Status: Deleted Code(s): K57.92 - Diverticulitis of intestine, part unspecified, without perforation or abscess without bleeding (2) Diverticulitis of colon with perforation: Status: Deleted Code(s): K57.20 - Diverticulitis of large intestine with perforation and abscess without bleeding (3) Obesity (BMI 30.0-34.9): Status: Acute Code(s): E66.811 - Obesity, class 1 (4) Major depressive disorder: Status: Chronic Code(s): F32.9 - Major depressive disorder, single episode, unspecified Qualifiers: Active/Remission status: remission status unspecified Major depression recurrence: recurrent Qualified Code(s): F33.9 - Major depressive disorder, recurrent, unspecified (5) Chronic constipation: Status: Acute Code(s): K59.09 - Other constipation (6) Diverticulitis of large intestine with complication: Status: Acute Code(s): K57.32 - Diverticulitis of large intestine without perforation or abscess without bleeding (7) Tobacco use: Status: Acute Code(s): Z72.0 - Tobacco use Meds Home Medications and Allergies Home Medications ?Medication ?Instructions ?Recorded ?Confirmed ?Type bisoprolol 2.5 1 tab PO DAILY 08/23/24 07/10/25 History mg-hydrochlorothiazide 6.25 mg tablet linaclotide 290 mcg capsule 290 mcg PO DAILY 08/23/24 07/10/25 History (Linzess) albuterol sulfate 90 mcg/actuation 1 inh inhalation QID PRN shortness 12/06/24 07/10/25 Rx aerosol inhaler of breath or wheezing #6.7 grams diclofenac sodium 75 mg 75 mg PO BID #60 tabs 04/23/25 07/10/25 Rx tablet,delayed release dextromethorphan IR 45 1 tab PO BID #60 ea 06/13/25 07/10/25 Rx mg-bupropion ER 105 mg biphasic tablet (Auvelity) clonazepam 0.5 mg tablet 0.5 mg PO HS #30 tabs 06/20/25 07/10/25 Rx cetirizine 10 mg tablet (Zyrtec) 10 mg PO DAILY 07/10/25 07/10/25 History gabapentin 300 mg capsule 300 mg PO HS 07/10/25 07/10/25 History vilazodone 40 mg tablet 40 mg PO HS 07/10/25 07/10/25 History amoxicillin 875 mg-potassium 1 tab PO BID #10 tabs 07/12/25 Rx clavulanate 125 mg tablet New Prescriptions to Start Prescriptions: amoxicillin-pot clavulanate Willis Quezada Allergies Allergy/AdvReac Type Severity Reaction Status Date / Time No Known Allergies Allergy Verified 07/10/25 13:40 Discharge Plan Disposition Patient Disposition: Home, Self-Care Condition: Fair Discharge Order Discharge Orders: Discharge Order (Routine); Ordered 07/12/25 Ordered By: Willis Quezada Follow up Plan Follow up with: Dinesh Leary II, MD [Staff Physician, Gastroenterology] - Enter time for follow up Referral Note: for diverticulitis and IBS-C Leatha Bermudez APRN [Primary Care Provider, Medical] - Enter time for follow up Pipo Tellez MD [Staff Physician, General Surgery] - 1 week Prescriptions/Medication Reconciliation: New amoxicillin-pot clavulanate 875-125 mg tablet 1 tab PO BID Qty: 10 0RF Continued albuterol sulfate 90 mcg/actuation HFA aerosol inhaler 1 inh inhalation QID PRN (Reason: shortness of breath or wheezing) Qty: 6.7 0RF diclofenac sodium 75 mg tablet,delayed release (DR/EC) 75 mg PO BID Qty: 60 2RF clonazepam 0.5 mg tablet 0.5 mg PO HS Qty: 30 2RF Auvelity 45-105 mg tablet, IR and ER, biphasic 1 tab PO BID Qty: 60 2RF Rx Instructions: administer at least 8 hours apart bisoprolol-hydrochlorothiazide 2.5-6.25 mg tablet 1 tab PO DAILY Linzess 290 mcg capsule 290 mcg PO DAILY Patient Comments: TAKE 1 CAPSULE BY MOUTH ONCE DAILY AT LEAST 30MIN BEFORE THE FIRST MEAL OF THE DAY ON AN EMPTY STOMACH cetirizine [Zyrtec] 10 mg Tablet 10 mg PO DAILY gabapentin 300 mg capsule 300 mg PO HS vilazodone 40 mg tablet 40 mg PO HS Problem Reconciliation Problems Reviewed?: Yes Patient Discharge Instructions ACTIVITY: Continue current activity DIET: continue same diet Print Language: Citizen Of [place] Providers Primary Care Provider: Leatha Bermudez Admit Provider: Willis Quezada Attending Provider: Willis Quezada
--- NOTE | 2025-07-12 07:26 | EXP.SURG.PN ---
Subjective Patient reports: no new complaints, feels better and bowel movement Narrative: Tolerating advancement of her diet Exam Data for Last 24 hours Vital signs and Labs for Last 24 Hours: Temp Pulse Resp BP Pulse Ox O2 Del Method 98.5 F 73 16 103/63 L 97 Room Air 07/12/25 04:00 07/12/25 04:00 07/12/25 04:00 07/12/25 04:00 07/12/25 04:00 07/12/25 06:31 Laboratory Results - last 24 hr 07/10/25 16:50: A. baumannii (PCR) Not detected, Bacteroides fragilis Not detected, Karla albicans (PCR) Not detected, Karla auris (PCR) Not detected, C. glabrata (PCR) Not detected, C. krusei (PCR) Not detected, C. parapsilosis (PCR) Not detected, C. tropicalis (PCR) Not detected, Cryptococcus neoformans PCR Not detected, Enterobacterales (PCR) Not detected, Enterococc faecalis PCR Not detected, Enterococc faecium PCR Not detected, E. coli (PCR) Not detected, H. influenzae DNA Not detected, Klebsiella aerogenes (PCR) Not detected, Klebsiella oxytoca PCR Not detected, K. pneumoniae group (PCR) Not detected, List. monocytogenes PCR Not detected, N. meningitidis (PCR) Not detected, Proteus species (PCR) Not detected, Salmonella spp. (PCR) Not detected, Serratia marcescens PCR Not detected, Staphylococcus sp PCR Not detected, Staph aureus (PCR) Not detected, mecA/C & MREJ Resist Gene Not applicable, mecA/C-Methicil Resis Gene Not applicable, Staph epidermidis (PCR) Not detected, Staph lugdunensis (TEM-PCR) Not detected, S. maltophilia (PCR) Not detected, Streptococcus sp PCR Not detected, S.agalactiae Grp B CHELO Not detected, Strep pneumoniae (PCR) Not detected, S. pyogenes GrpA CHELO Not detected, P. aeruginosa (PCR) Not detected, Karly/B-Vanco Res Genes Not applicable, blaIMP Car res Gene PCR Not applicable, KPC-Carbap Res Gene PCR Not applicable, blaNDM Car Res Gene PCR Not applicable, OXA-48 Carbapenem Resis Gene (PCR) Not applicable, blaVIM Car Res Gene PCR Not applicable, CTX-M Gene Resistance (PCR) Not applicable, MCR-1 Resistance Gene Not applicable 07/11/25 05:29: Sodium 136, Potassium 3.1 L, Chloride 105, Anion Gap 8.1, Glucose 98 D, Calcium 8.9, Magnesium 2.4 H, Total Bilirubin 1.1, Alkaline Phosphatase 77 07/12/25 05:19: WBC 8.0, RBC 3.90 L, Hgb 11.3 L, Hct 35.5 L, MCV 91.0, MCH 27.9, MCHC 30.7 L, RDW 13.2, Plt Count 261, MPV 9.7, Neut % (Auto) 64.5, Lymph % (Auto) 22.4, [place] % (Auto) 8.0, Eos % (Auto) 4.4, Baso % (Auto) 0.5, Neut # (Auto) 5.2, Lymph # (Auto) 1.8, [place] # (Auto) 0.6, Eos # (Auto) 0.4, Baso # (Auto) 0.0, Sodium 143, Potassium 4.4 D, Chloride 109 H, Carbon Dioxide 23, Anion Gap 15.4 H, BUN 5 L, Creatinine 0.90, Estimated Creat Clear 126, Estimated GFR 68, Est GFR ( Amer) 82, Glucose 96, Calcium 8.6, Magnesium 2.5 H I & O for Last 24 hours: Intake & Output 07/09/25 07/10/25 07/11/25 07/12/25 11:59 11:59 11:59 11:59 Intake Total 3204 / 3204 2127.5 / 2127.5 Output Total 0 / 0 0 / 0 Balance 3204 / 3204 2127.5 / 2127.5 Weight 211 lb 8 oz 220 lb Microbiology Reports for the Last 24 Hours: Microbiology 07/10/25 14:45 Urine,Clean Catch Urine Culture - Final NO GROWTH AFTER 48 HOURS 07/10/25 16:50 Blood Blood Culture - Preliminary 07/10/25 16:48 Blood Blood Culture - Preliminary NO GROWTH AFTER 24 HOURS Constitutional Constitutional: no acute distress *Routine Respiratory Exam Respiratory: Absent respiratory distress *Routine Cardiovascular Exam Cardiovascular: Absent tachycardia *Routine Abdominal Exam Abdominal: Present soft Progress Note: A&P Assessment and plan (1) Diverticulitis of large intestine with complication: Status: Acute Assessment and plan: Continuing to show improvement on Zosyn. Overall management as per primary service From surgical standpoint, she is stable for discharge home with close outpatient follow-up Complete course of antibiotics Short-term/delayed post-treatment colonoscopy (deferred to the gastroenterology service?see #2 below) Discussion with regard to risks/benefits of elective resection will be ongoing (2) Chronic constipation: Status: Acute Assessment and plan: Gastroenterology outpatient consultation in near future
[2025-07-12 08:00] VITALS: BP 128/69; PULSE 72; RESP 18; TEMP 36.9; O2SAT 95
[2025-07-12] MEDS: BISOPROLOL 5MG TABLET 2.5 MG PO (09:26)
--- NOTE | 2025-07-13 08:17 | PC.NURSE ---
Blood culture results forwarded to hospitalist.
--- NOTE | 2025-07-16 11:47 | SW/DCPLANNER ---
Spoke with patient on the phone. Patient stated that she is doing well. Patient stated that she is aware and has no had a phone call from her upcoming appointments the date or time and that she will call later today. Patient stated that she was able to get her new medicine picked up from the pharmacy. Patient stated that she has no concerns or questions at this time. Gabrielle Zhou
== END 2025-07-12 10:35 | disposition home or self-care (01) | DRG 392 ==
LOC: ER 16:54 → ICU 07-11 06:14 → 2ND 07-11 11:16
PROVIDERS: Physician Assistant; Admitting Provider Internal Medicine Adolescent Medicine; Emergency Provider Student in an Organized Health Care Education/Training Program; PCP Nurse Practitioner; Visit Provider Internal Medicine Adolescent Medicine
DX: K57.20 Diverticulitis of large intestine with perforation and abscess without bleeding (principal); F33.9 Major depressive disorder, recurrent, unspecified; K58.1 Irritable bowel syndrome with constipation; I10 Essential (primary) hypertension; G62.9 Polyneuropathy, unspecified; G89.29 Other chronic pain; E66.811 Obesity, class 1; F17.210 Nicotine dependence, cigarettes, uncomplicated; Z68.29 Body mass index [BMI] 29.0-29.9, adult; Z79.899 Other long term (current) drug therapy; Z71.6 Tobacco abuse counseling
CPT/HCPCS: 36415; 71045; 74177; 80048; 80053; 81001; 83605; 83690; 83735; 84703; 85025; 86803; 87040; 87077; 87086; 87154; 87389; 87636; 99285; J0131; J1650; J2543; J7030; J7120; Q9967

== ENCOUNTER 2025-08-02 08:36 | Day surgery (SDC) | payer BC, SELFPAY ==
--- NOTE | 2025-07-31 06:57 | EXP.HP ---
History of Present Illness *Admission Date: 08/02/25 *History of present illness: Mrs. Ford is a 44-year-old female who is here for diagnostic colonoscopy. The patient was hospitalized recently on 07/10/2026 with acute transverse diverticulitis with small perforation. The patient was given IV Zosyn and discharged with oral Augmentin. This did result in resolution of her symptoms. She does have chronic constipation and GI difficulties that began and childhood. The patient has had 2 prior colonoscopies (Grayson Chahal MD in [place]) at least 5 to 10 years ago. She has been on Linzess since then. She did gradually increase the dosage and now is on Linzess 290 mcg. This has stopped working well and she has tried and failed Ex-Lax, magnesium citrate, Fleet suppositories and stool softeners. She is on MiraLAX and psyllium husk fiber. She also takes magnesium glycerin. With this, she is having a small bowel movement every couple of days. She has been given samples of Ibsrela. The examination is deemed medically necessary for diagnostic colonoscopy. The patient has been seen, interviewed and examined prior to the procedure by both myself and the anesthesia provider. [facility] Disclaimer: The information contained in this section may have been updated after the patient was seen, as this information can be updated by other users. Medical History Asthma Irritable bowel syndrome (IBS) Hypertension Major depressive disorder Panic disorder Cervical radiculopathy Surgical History History of colonoscopy H/O nasal septoplasty Family History Other Family history of cancer Family history of diabetes mellitus type II Family history of hyperlipidemia Family history of hypertension Social History (Updated 08/02/25 @ 09:21 by Clem Canchola RN) Smoking Status: Current every day smoker tobacco type: cigarettes packs per day: 1 second hand exposure: No alcohol intake: never substance use type: denies use current occupational status: employed Travel in the last 8 weeks?: None household members: spouse and children housing: house number of children: 3 current occupational exposures/hazards: No caffeine: Yes Have you lived/traveled outside US in past 30 days?: No Contact w/someone who lives/traveled outside US past 30 days?: No Exposure to someone with infectious disease in past 14 days?: No Do you have a fever (greater than 100.4 F or 38 C)?: No Have you tested positive for COVID-19?: Yes Exposed to someone with COVID-19 in past 14 days?: No Do you have a sore throat?: No Do you have a cough?: No Do you have any weakness?: No Are you experiencing any nausea/vomitting?: No Do you have any diarrhea?: No Are you experiencing any unusual bleeding?: No Do you have any muscle aches/pain?: No Do you have any abdominal pain?: No Are you experiencing loss of taste or smell?: No Other Medical History Have you received the Flu Vaccine for this season: No Have you received the Pneumonia Vaccine: Yes Review of Systems Review of Systems Review of systems (narrative): Negative *Cardiovascular Comments: Negative *Gastrointestinal Comments: Negative *Genitourinary Comments: Negative *Musculoskeletal Comments: Negative *Neurologic Comments: Negative Meds Home Medications and Allergies Home Medications ?Medication ?Instructions ?Recorded ?Confirmed ?Type bisoprolol 2.5 1 tab PO DAILY 08/23/24 07/30/25 History mg-hydrochlorothiazide 6.25 mg tablet albuterol sulfate 90 mcg/actuation 1 inh inhalation QID PRN shortness 12/06/24 07/30/25 Rx aerosol inhaler of breath or wheezing #6.7 grams dextromethorphan IR 45 1 tab PO BID #60 ea 06/13/25 07/30/25 Rx mg-bupropion ER 105 mg biphasic tablet (Auvelity) clonazepam 0.5 mg tablet 0.5 mg PO HS #30 tabs 06/20/25 07/30/25 Rx cetirizine 10 mg tablet (Zyrtec) 10 mg PO DAILY 07/10/25 07/30/25 History gabapentin 300 mg capsule 300 mg PO HS 07/10/25 07/30/25 History vilazodone 40 mg tablet 40 mg PO HS 07/10/25 07/30/25 History magnesium glycinate 400 mg PO HS 07/24/25 07/30/25 History polyethylene glycol 3350 17 17 g PO DAILY 07/24/25 07/30/25 History gram/dose oral powder (Miralax) diclofenac sodium 75 mg 75 mg PO BID #60 tabs 07/30/25 07/30/25 Rx tablet,delayed release gabapentin 300 mg capsule 300 mg PO HS #30 caps 07/30/25 07/30/25 Rx tenapanor 50 mg tablet (Ibsrela) 50 mg PO BID 08/02/25 08/02/25 History New Prescriptions to Start Prescriptions: Allergies Allergy/AdvReac Type Severity Reaction Status Date / Time No Known Allergies Allergy Verified 08/02/25 09:21 Exam *Routine HEENT Exam Head: Present normocephalic Eye: Present EOMI and PERRL ENT: Present mucous membranes moist *Routine Neck Exam Neck: Present supple *Routine Respiratory Exam Respiratory: Present CTA bilaterally *Routine Cardiovascular Exam Cardiovascular: Present RRR *Routine Abdominal Exam Abdominal: Present soft and normoactive bowel sounds; Absent tenderness *Routine Rectal Exam Rectal:: deferred *Routine Genitalia Exam Genitalia:: deferred *Routine Extremities Exam Extremities: Absent cyanosis, clubbing or edema *Routine Skin Exam Skin: Present warm; Absent rash *Routine Neurological Exam Neurological: Present alert and oriented X3 Assessment and Plan *Assessment and plan (1) Chronic constipation: Status: Acute Category: Medical Code(s): K59.09 - Other constipation (2) Generalized abdominal pain: Status: Acute Category: Medical Code(s): R10.84 - Generalized abdominal pain (3) Diverticulitis of large intestine with complication: Status: Acute Category: Medical Code(s): K57.32 - Diverticulitis of large intestine without perforation or abscess without bleeding (4) Outlet dysfunction constipation: Status: Acute Category: Medical Code(s): K59.02 - Outlet dysfunction constipation (5) Incomplete defecation: Status: Acute Category: Medical Code(s): R15.0 - Incomplete defecation Plan A/P: 1. Recent transverse diverticulitis with small perforation (complicated diverticulitis) is the preprocedural diagnosis. The patient does have intractable constipation/outlet dysfunction constipation. The patient will be anesthetized/sedated using MAC sedation. The patient has been seen and examined. Cardiac and lung assessment prior to the examination is stable. Proceed with planned diagnostic colonoscopy.
[2025-07-31 16:29] VITALS: BMI 30.8
[2025-08-02] VITALS (7 sets, daily range): BP systolic 103–121; BP diastolic 56–82; PULSE 56–68; RESP 16–18; TEMP 36.2–36.3; O2SAT 96–100
--- NOTE | 2025-08-02 06:49 | P.PCN_ITS ---
[facility] Procedure Note Date: 08/02/25 Time: 10:26 Procedure Note:: Colonoscopy Procedure Report: Colonoscopy with cold snare polypectomy Endoscopist: Diensh Leary II, MD Referring physician: Leatha PANG Date of Procedure: August 02, 2025 Equipment: Olympus [id number] adult colonoscope Sedation: MAC sedation Indication: Mrs. Ford is a 44-year-old female who is here for diagnostic colonoscopy. The patient was hospitalized recently on 07/10/2026 with acute transverse diverticulitis with small perforation. The patient was given IV Zosyn and discharged with oral Augmentin. This did result in resolution of her symptoms. She does have chronic constipation and GI difficulties that began and childhood. The patient has had 2 prior colonoscopies (Grayson Chahal MD in [place]) at least 5 to 10 years ago. She has been on Linzess since then. She did gradually increase the dosage and now is on Linzess 290 mcg. This has stopped working well and she has tried and failed Ex-Lax, magnesium citrate, Fleet suppositories and stool softeners. She is on MiraLAX and psyllium husk fiber. She also takes magnesium glycerin. With this, she is having a small bowel movement every couple of days. She has been given samples of Ibsrela. The examination is deemed medically necessary for diagnostic colonoscopy. Procedure: Prior to the procedure, a history and physical exam was performed, and patient's medications and allergies were reviewed. The risks, benefits and alternatives of the sedation and procedure were discussed with the patient. All questions were answered and informed consent was obtained. The patient was brought to the procedure room. Patient identification and proposed procedure were verified by the physician and the nurse. The patient was placed in a left lateral decubitus position and the scope was passed under direct vision. Throughout the procedure, the patient's blood pressure, pulse, and oxygen saturations were monitored continuously. The colonoscopy was accomplished without difficulty. The patient tolerated the procedure well. Findings: On digital rectal examination there was normal rectal tone. There were no external hemorrhoids. The colonoscope was introduced through the anal canal to the rectum and advanced to the cecum. The ileocecal valve and appendiceal orifice were identified. The scope was advanced a short distance into the ileum which appeared grossly normal. The scope was then withdrawn into the colon. There was a single polyp (3 to 4 mm) in the descending colon removed via cold snare polypectomy. There were scattered diverticuli throughout the colon but more predominantly in the descending and sigmoid colon (LEFT colon). The remainder of the cecum, ascending, transverse, descending and sigmoid colon were normal. The rectum itself was normal. Upon retroflexion within the rectum there were grade 1 internal hemorrhoids. The preparation was excellent throughout with [place] Preparation Score of 9. The cecal time was 12 minutes. Impression: 1. Diminutive 3 to 4 mm descending colon polyp 2. Pandiverticulosis 3. Grade 1 internal hemorrhoids Plan: I will follow-up the polyp histology and recommend repeat screening/surveillance colonoscopy again in 7 to 10 years based upon the pathology. I would recommend that she continue the MiraLAX plus psyllium on a regular and daily basis.
[2025-08-02 09:16] LABS: Urine Pregnancy, HCG Qual. Negative (Negative)
[2025-08-02] MEDS: LACTATED RINGERS 1000ML 1,000 ML 50 ML IV (09:31)
--- NOTE | 2025-08-02 09:49 | P.PNANES_ITS ---
[facility] Disclaimer: The information contained in this section may have been updated after the patient was seen, as this information can be updated by other users. Medical History Asthma Irritable bowel syndrome (IBS) Hypertension Major depressive disorder Panic disorder Cervical radiculopathy Surgical History History of colonoscopy H/O nasal septoplasty Family History Other Family history of cancer Family history of diabetes mellitus type II Family history of hyperlipidemia Family history of hypertension Social History (Updated 08/02/25 @ 09:21 by Clem Canchola RN) Smoking Status: Current every day smoker tobacco type: cigarettes packs per day: 1 second hand exposure: No alcohol intake: never substance use type: denies use current occupational status: employed Travel in the last 8 weeks?: None household members: spouse and children housing: house number of children: 3 current occupational exposures/hazards: No caffeine: Yes Have you lived/traveled outside US in past 30 days?: No Contact w/someone who lives/traveled outside US past 30 days?: No Exposure to someone with infectious disease in past 14 days?: No Do you have a fever (greater than 100.4 F or 38 C)?: No Have you tested positive for COVID-19?: Yes Exposed to someone with COVID-19 in past 14 days?: No Do you have a sore throat?: No Do you have a cough?: No Do you have any weakness?: No Are you experiencing any nausea/vomitting?: No Do you have any diarrhea?: No Are you experiencing any unusual bleeding?: No Do you have any muscle aches/pain?: No Do you have any abdominal pain?: No Are you experiencing loss of taste or smell?: No [facility] Anesthesia Checklist Patient Identification Patient Identification: Arm Band Structural Data Admitted From: Home Planned Operative Procedure/s: Colonoscopy Consent for Planned Operative Procedure(s) Verified: Yes Verified Documents: Surgical Consent and History and Physical NPO Status Verified Time NPO: 04:00 (finished prep) Additional verifications Anesthesia Reactions: No Hx Blood Transfusions: No Airway Assessment Mallampati Score:: Class II C-Spine Mobility Assessed: Yes TMJ Mobility Assessed: Yes Dentition: Good Dentition Neurological Assessment Level of Consciousness: Awake, Alert and Appropriate Anesthesia Plan Anesthesia Risk discussed: Yes Anesthesia Plan: Verified ASA Class: II Anesthesia Type: MAC
== END 2025-08-02 11:31 | disposition home or self-care (01) ==
PROVIDERS: PCP Nurse Practitioner; Visit Provider Internal Medicine Gastroenterology
PROC: 0DJD8ZZ Inspection of Lower Intestinal Tract, Via Natural or Artificial Opening Endoscopic (ICD-10-PCS; CPT 45378; principal; 2025-08-02 10:00)
DX: K57.30 Diverticulosis of large intestine without perforation or abscess without bleeding (principal); K59.09 Other constipation; Z87.19 Personal history of other diseases of the digestive system; K64.0 First degree hemorrhoids; K63.5 Polyp of colon; K59.02 Outlet dysfunction constipation; F41.0 Panic disorder [episodic paroxysmal anxiety]; F17.210 Nicotine dependence, cigarettes, uncomplicated; I10 Essential (primary) hypertension; F32.9 Major depressive disorder, single episode, unspecified; J45.909 Unspecified asthma, uncomplicated; Z79.899 Other long term (current) drug therapy
CPT/HCPCS: 45385; 81025; J2003; J2704; J7120